=== PATIENT | male | born 1945 | race Caucasian/White ===

== ENCOUNTER → 2016-12-27 | Outpatient (CLI) | payer OTHER ==
[2016-12-27 09:09] LABS: BASOPHILS # (AUTO) 0.1 X10^3/uL (0.0-0.1); BASOPHILS % (AUTO) 1.3 % (0.2-1.0); EOSINOPHILS # (AUTO) 0.1 x10^3/uL (0.0-0.2); EOSINOPHILS % (AUTO) 1.4 % (0.9-2.9); HEMATOCRIT 41.3 % (42.0-54.0); HEMOGLOBIN 13.8 g/dL (13.5-18.0); LYMPHOCYTES # (AUTO) 2.5 X10^3/uL (1.3-2.9); LYMPHOCYTES % (AUTO) 26.5 % (21.0-51.0); MEAN CORPUSCULAR HEMOGLOBIN 27.8 pg (27.0-34.0); MEAN CORPUSCULAR HGB CONC 33.5 g/dL (33.0-35.0); MEAN CORPUSCULAR VOLUME 83.2 fL (80.0-100.0); MONOCYTES # (AUTO) 0.6 x10^3/uL (0.3-0.8); NEUTROPHILS # (AUTO) 6.2 x10^3/uL (2.2-4.8); NEUTROPHILS % (AUTO) 64.8 % (42.0-75.0); PLATELET COUNT 199 X10^3/uL (150.0-450.0); RED BLOOD COUNT 4.96 X10^6/uL (4.7-6.0); RED CELL DISTRIBUTION WIDTH 17.7 % (11.6-16.5); WHITE BLOOD COUNT 9.6 X10^3/uL (3.6-10.0)
== END ==
LOC: LAB 08:43
PROVIDERS: ATTEND Urology
DX: E29.1 Testicular hypofunction (principal); C61 Malignant neoplasm of prostate
CPT/HCPCS: 36415; 84153; 84403; 85025

== ENCOUNTER 2018-06-18 11:15 | Inpatient (IN) ==
[2018-06-18 11:34] VITALS: BMI 28.2
--- NOTE | 2018-06-18 12:28 | DR.DIZZY ---
HPI Time seen Time Seen by Provider: 06/18/18 12:22 PCP Primary Care Physician: GUERO MORRELL Complaint Chief Complaint:: PT C/O > WEAKNESS , AND HX OF AFIB, PT C/O HAVING A < APPETITE, BR Self Treatment fo Chief Complaint: PT HAS HAD A WEAKNESS FOR , A YEAR, ,BR .. PT IS A GOOD HISTORIAN , NO DISTRESS NOTED PTS COLOR IS PINK, PT MOVED ALL EXTS WELL, BR Nurses Notes Reviewed Nurses Notes Review: Yes Source History Provided: Patient Mode of Arrival Mode of Arrival: Ambulatory Timing Onset of Chief Complaint: 06/18/17 Came on: Suddenly Symptom Onset: Unknown Duration Duration: Constant Duration: Days Location of Weakness Weakness Location: Generalized Context Onset: At rest and With light exertion Does pt take pot. toxic medication?: No History of: None Stroke Symptoms: Dizziness Severity Severity: Normal activity level Modifying factors Worsens: Other (WITH INCREASE ACTIVITY) Associated signs and symptoms Associated Signs and Symptoms: Weak PMH PMH Past Medical History: Yes Past Medical History Comment: AFIB, Past Surgical History: Yes Surgical History: Appendectomy and Cholecystectomy Past Surgical History Comment: HERNIA REPAIR, KNEE REPLACEMENT Family History History of Family Medical Conditions: No Social History Does patient currently use any type of tobacco product: No Have you used tobacco products in the last 12 months: No Type of Tobacco Use: None Does any household member use tobacco: No Alcohol Use: None Do you use any recreational Drugs:: No Lives With: Family Lives Where: Home infectious screening In the last 2 months have you had wt loss of >10#?: NO Have you had fever, night sweats or hemotysis?: No Have you traveled outside the country in the last 6 months?: No Isolation: Standard ROS Review of Systems Constitutional: Weakness, Fatigue and Loss of Appetite; negative Chills and Fev er Eyes: No Symptoms Reported ENTM: No Symptoms Reported Respiratoy: Short of Breath Cardiovascular: Chest Pain Gastrointestinal/Abdominal: Nausea Genitourinary: No Symptoms Reported Neurological: Weakness Musculoskeletal: Muscle Pain Integumentary: No Symptoms Reported Hematologic/Lymphatic: No Symptoms Reported Endocrine: No Symptoms Reported Psychiatric: No Symptoms Reported All Other Systems: Reviewed and Negative PE Vital Signs Vitals: Temperature 97.4 F Pulse Rate [Right Brachial] 85 Pulse Rate 92 Respiratory Rate 18 Blood Pressure [Right Arm] 136/91 Blood Pressure 160/88 O2 Sat by Pulse Oximetry 97 General Limitations: No Limitations General Appearance: Alert and In No Apparent Distress Head Head Exam: Normal Inspection Eyes Eye exam: Normal Appearance Pupils: Regular, Round: Bilateral and Reactive: Bilateral Sclera/Conjunctival: Normal Inspection: Bilateral ENT ENT Exam: Normal External Ear Exam Neck Neck Exam: Trachea Midline Chest Chest Inspection: Symmetric Chest Wall Rise Respiratory Respiratory Exam: Normal Lung Sounds Bilat Respiratory Exam: Bilateral: Rhonchi and Lower: Rhonchi Cardiovascular Cardiovascular Exam: Regular Rate and Normal Rhythm Abdominal Exam Abdominal Exam: Normal Bowel Sounds and Soft Rectal Rectal Exam: Deferred Extremeties Extremities Exam: Normal Inspection Back Back Exam: Normal Inspection Neurologic Neurological Exam: Alert, Oriented X3, CN II-XII Intact and Normal Gait; negative Motor Sensory Deficit Patient Oriented To: Person, Place and Time Speech: Fluid Speech Cranial Nerve Exam: EOM Function (II, III, IV, ): Normal, Facial Sensation (V): Normal, Facial Palsy (VII): Normal, Gag reflex (XI): Normal and Tongue Deviation: Normal Cerebellar Function: Normal Gait Motor Strength - LUE: 5/5 Motor Strength - RUE: 5/5 Motor Strength - LLE: 5/5 Motor Strength - RLE: 5/5 Upper Motor Neuron Exam: Babinski Sign: Normal Psychiatric Psychiatric Exam: Normal Affect and Normal Mood Skin Skin Exam: Dry MDM Additional Information Obtained Additional Information Obtained From: Family Differential Diagnosis Differential Diagnosis: Anemia, Dehydration, Dysrhythmia, Hypoglycemia, Myocardial infarction and Pulmonary embolus Differential Diagnosis Comment: THORACIC ANEURYSM. COURSE Treatment Treatment: SEE ORDERS. Consultation Consultation Comments: PATIENT DISCUSS WITH DR. HARO. HE WILL ADMIT PATIENT. Education/Counseling Education/Counseling: Patient and Family Educated On: Diagnosis ROR Labs Reviewed Laboratory Results Reviewed?: Yes Result Diagrams: 06/19/18 04:33 06/19/18 04:33 Laboratory: WBC 7.5 X10^3/uL (3.6-10.0) 06/19/18 04:33 RBC 4.45 X10^6/uL (4.7-6.0) L 06/19/18 04:33 Hgb 13.3 g/dL (13.5-18.0) L 06/19/18 04:33 Hct 39.5 % (42.0-54.0) L 06/19/18 04:33 MCV 88.9 fL (80.0-100.0) 06/19/18 04:33 MCH 29.8 pg (27.0-34.0) 06/19/18 04:33 MCHC 33.5 g/dL (33.0-35.0) 06/19/18 04:33 RDW 15.1 % (11.6-16.5) 06/19/18 04:33 Plt Count 207 X10^3/uL (150.0-450.0) 06/19/18 04:33 MPV 7.8 fL (7.4-11.0) 06/19/18 04:33 Neut % (Auto) 54.4 % (42.0-75.0) 06/19/18 04:33 Lymph % (Auto) 36.1 % (21.0-51.0) 06/19/18 04:33 [place] % (Auto) 7.3 % (0.0-13.0) 06/19/18 04:33 Eos % (Auto) 1.5 % (0.9-2.9) 06/19/18 04:33 Baso % (Auto) 0.7 % (0.2-1.0) 06/19/18 04:33 Neut # (Auto) 4.1 x10^3/uL (2.2-4.8) 06/19/18 04:33 Lymph # (Auto) 2.7 X10^3/uL (1.3-2.9) 06/19/18 04:33 [place] # (Auto) 0.6 x10^3/uL (0.3-0.8) 06/19/18 04:33 Eos # (Auto) 0.1 x10^3/uL (0.0-0.2) 06/19/18 04:33 Baso # (Auto) 0.1 X10^3/uL (0.0-0.1) 06/19/18 04:33 Absolute Nucleated RBC 0.1 /100WBC 06/19/18 04:33 Sodium 145 mmol/L (136-145) 06/19/18 04:33 Corrected Sodium TNP 06/19/18 04:33 Potassium 3.8 mmol/L (3.5-5.1) 06/19/18 04:33 Chloride 108 mmol/L (98-107) H 06/19/18 04:33 Carbon Dioxide 29.3 mmol/L (21-32) 06/19/18 04:33 BUN 9 mg/dL (7-18) 06/19/18 04:33 Creatinine 1.62 mg/dL (0.70-1.30) H 06/19/18 04:33 Est GFR (MDRD) Af Amer 54 (>60) L 06/19/18 04:33 Est GFR (MDRD) Non-Af 45 (>60) L 06/19/18 04:33 Glucose 83 mg/dL (65-99) 06/19/18 04:33 Calcium 8.1 mg/dL (8.5-10.1) L 06/19/18 04:33 Corrected Calcium 9.1 mg/dL (8.5-10.1) 06/19/18 04:33 Magnesium 2.1 mg/dL (1.7-2.9) 06/19/18 04:33 Total Bilirubin 0.60 mg/dL (0.2-1.0) 06/19/18 04:33 AST 26 Units/L (15-37) 06/19/18 04:33 ALT 21 Units/L (12-78) 06/19/18 04:33 Alkaline Phosphatase 55 Units/L (46-116) 06/19/18 04:33 Creatine Kinase 83 Units/L (39-308) 06/19/18 04:33 CK-MB (CK-2) 3.7 ng/mL (0-4.0) 06/19/18 04:33 CK/CKMB % Calc 4.5 % (<4) 06/19/18 04:33 Troponin I 0.05 ng/mL (0-1.5) 06/19/18 04:33 Total Protein 6.0 g/dL (6.4-8.2) L 06/19/18 04:33 Albumin 2.8 g/dL (3.4-5.0) L 06/19/18 04:33 Globulin 3.2 g/dL (2.5-4.5) 06/19/18 04:33 Albumin/Globulin Ratio 0.9 Ratio (1.1-2.1) L 06/19/18 04:33 Triglycerides 113 mg/dL (0-150) 06/19/18 04:33 Cholesterol 197 mg/dL (0-200) 06/19/18 04:33 LDL Cholesterol, Calc 133 mg/dL (0-100) H 06/19/18 04:33 HDL Cholesterol 41 mg/dL (40-60) 06/19/18 04:33 Cholesterol/HDL Ratio 4.8 (0.0-5.0) 06/19/18 04:33 Specimen Type Clean catch urine 06/18/18 12:48 Urine Color Yellow (YELLOW) 06/18/18 12:48 Urine Appearance Clear (CLEAR) 06/18/18 12:48 Urine pH 6.0 (5.0 - 8.0) 06/18/18 12:48 Ur Specific [place] 1.010 (1.000-1.030) 06/18/18 12:48 Urine Protein 3+ (NEGATIVE) 06/18/18 12:48 Urine Glucose (UA) Negative (NEGATIVE) 06/18/18 12:48 Urine Ketones Negative (NEGATIVE) 06/18/18 12:48 Urine Occult Blood 2+ (NEGATIVE) 06/18/18 12:48 Urine Nitrite Negative (NEGATIVE) 06/18/18 12:48 Urine Bilirubin Negative (NEGATIVE) 06/18/18 12:48 Urine Urobilinogen Normal (NORMAL) 06/18/18 12:48 Ur Leukocyte Esterase Negative (NEGATIVE) 06/18/18 12:48 Urine RBC 0-2 /HPF (NONE SEEN) 06/18/18 12:48 Urine WBC 0-2 /HPF (NONE SEEN) 06/18/18 12:48 Ur Squamous Epith Cells Rare /HPF (NEGATIVE) 06/18/18 12:48 Amorphous Sediment Trace /HPF (NEGATIVE) 06/18/18 12:48 Urine Bacteria Negative /HPF (NEGATIVE) 06/18/18 12:48 Urine Mucus Few /HPF (NEGATIVE) 06/18/18 12:48 Ur Culture Indicated? No/not indicated 06/18/18 12:48 EKG Rate: 89 Rhythm: Afib Diagnosis Discharge Problem: Chest pain, Generalized weakness
[2018-06-18 12:44] LABS: BASOPHILS % (AUTO) 0.6 % (0.2-1.0); EOSINOPHILS # (AUTO) 0.1 x10^3/uL (0.0-0.2); EOSINOPHILS % (AUTO) 1.2 % (0.9-2.9); HEMATOCRIT 43.7 % (42.0-54.0); HEMOGLOBIN 14.6 g/dL (13.5-18.0); LYMPHOCYTES # (AUTO) 2.4 X10^3/uL (1.3-2.9); LYMPHOCYTES % (AUTO) 28.8 % (21.0-51.0); MEAN CORPUSCULAR HEMOGLOBIN 29.4 pg (27.0-34.0); MEAN CORPUSCULAR HGB CONC 33.5 g/dL (33.0-35.0); MEAN CORPUSCULAR VOLUME 87.7 fL (80.0-100.0); MEAN PLATELET VOLUME 7.5 fL (7.4-11.0); MONOCYTES # (AUTO) 0.6 x10^3/uL (0.3-0.8); MONOCYTES % (AUTO) 7.3 % (0.0-13.0); NEUTROPHILS # (AUTO) 5.2 x10^3/uL (2.2-4.8); NEUTROPHILS % (AUTO) 62.1 % (42.0-75.0); PLATELET COUNT 231 X10^3/uL (150.0-450.0); RED BLOOD COUNT 4.98 X10^6/uL (4.7-6.0); RED CELL DISTRIBUTION WIDTH 15.3 % (11.6-16.5); WHITE BLOOD COUNT 8.3 X10^3/uL (3.6-10.0)
[2018-06-18 13:04] LABS: ALANINE AMINOTRANSFERASE 20 Units/L (12-78); ALBUMIN 2.9 g/dL (3.4-5.0); ALKALINE PHOSPHATASE 58 Units/L (46-116); ASPARTATE AMINO TRANSFERASE 19 Units/L (15-37); BLOOD UREA NITROGEN 9 mg/dL (7-18); CALCIUM 8.6 mg/dL (8.5-10.1); CARBON DIOXIDE 31.4 mmol/L (21-32); CHLORIDE 108 mmol/L (98-107); CKMB % 5.2 % (<4); COR CA(FOR HYPOALB) 9.5 mg/dL (8.5-10.1); CREATINE KINASE 65 Units/L (39-308); CREATINE KINASE MB 3.4 ng/mL (0-4.0); CREATININE 1.54 mg/dL (0.70-1.30); SODIUM 147 mmol/L (136-145); TOTAL PROTEIN 6.6 g/dL (6.4-8.2); TROPONIN I 0.04 ng/mL (0-1.5); eGFR NON BLACK RACES 47 (>60)
[2018-06-18 13:06] LABS: BILIRUBIN,URINE NEGATIVE (NEGATIVE); BLOOD/HEMOGLOBIN,URINE 2+ (NEGATIVE); GLUCOSE, URINE NEGATIVE (NEGATIVE); KETONES,URINE NEGATIVE (NEGATIVE); LEUKOCYTE ESTERASE ,URINE NEGATIVE (NEGATIVE); NITRITES,URINE NEGATIVE (NEGATIVE); PROTEIN,URINE 3+ (NEGATIVE); UROBILINOGEN,URINE NORMAL (NORMAL)
[2018-06-18 13:12] LABS: APPEARANCE,URINE CLEAR (CLEAR); COLOR,URINE YELLOW (YELLOW); RBC,URINE 0-2 /HPF (NONE SEEN); SQUAMOUS EPITHELIAL CELL,UR RARE /HPF (NEGATIVE)
[2018-06-18 13:13] LABS: AMORPHOUS SEDIMENT,UR TRACE /HPF (NEGATIVE); BACTERIA,URINE NEGATIVE /HPF (NEGATIVE); MUCUS,URINE FEW /HPF (NEGATIVE)
[2018-06-18] MEDS ORDERED: K-LYTE EFFERVESCENT ONE (13:41)
[2018-06-18 14:55] LABS: CKMB % 4.4 % (<4); CREATINE KINASE MB 3.3 ng/mL (0-4.0); TROPONIN I 0.04 ng/mL (0-1.5)
[2018-06-18] MEDS ORDERED: NS 1000 ML 1,000 ML IV SCH (17:00)
[2018-06-18 19:23] LABS: MAGNESIUM 1.4 mg/dL (1.7-2.9)
[2018-06-18] MEDS ORDERED: KLOR-CON PO PRN (19:25)
[2018-06-18] MEDS ORDERED: K-RIDER 10 MEQ/NS 100 ML 10 MEQ/100 ML BAG IV PRN (19:25)
[2018-06-18] MEDS ORDERED: POTASSIUM CHL 60 MEQ/NS 0.45% 500 ML IV PRN (19:25)
[2018-06-18] MEDS ORDERED: MICRO K EXTEN CAP 10 MEQ PO PRN (19:25)
[2018-06-18] MEDS ORDERED: POTASSIUM CHLORIDE LIQ 20 MEQ UDC PO PRN (19:25)
[2018-06-18] MEDS ORDERED: POTASSIUM CHL 40 MEQ/NS 0.45% 500 ML IV PRN (19:25)
[2018-06-18] MEDS: MAGNESIUM SULFATE 1 GRAM/100 mL PREMIX 1 GM/100 ML BAG IV PRN ×4 (19:56→23:12)
[2018-06-18] MEDS: COREG TAB 6.25 MG PO SCH (20:44)
[2018-06-18] MEDS: PRADAXA PO SCH (20:44)
[2018-06-18] MEDS: XANAX PO PRN (20:44)
[2018-06-19 00:18] LABS: CKMB % 4.5 % (<4); CREATINE KINASE MB 3.3 ng/mL (0-4.0); TROPONIN I 0.05 ng/mL (0-1.5)
[2018-06-19] MEDS ORDERED: NS 1/2 + KCL 20 MEQ/L 1,000 ML IV ONE (00:31)
[2018-06-19] MEDS: NS 1/2 + KCL 20 MEQ/L 1,000 ML IV SCH ×3 (00:43→20:00)
[2018-06-19] MEDS ORDERED: NORCO 5/325 MG TAB ONE (03:29)
[2018-06-19] MEDS: NORCO 5/325 MG TAB PO PRN ×2 (03:34→12:00)
[2018-06-19 05:18] LABS: BASOPHILS # (AUTO) 0.1 X10^3/uL (0.0-0.1); BASOPHILS % (AUTO) 0.7 % (0.2-1.0); EOSINOPHILS # (AUTO) 0.1 x10^3/uL (0.0-0.2); EOSINOPHILS % (AUTO) 1.5 % (0.9-2.9); HEMATOCRIT 39.5 % (42.0-54.0); HEMOGLOBIN 13.3 g/dL (13.5-18.0); LYMPHOCYTES # (AUTO) 2.7 X10^3/uL (1.3-2.9); LYMPHOCYTES % (AUTO) 36.1 % (21.0-51.0); MEAN CORPUSCULAR HEMOGLOBIN 29.8 pg (27.0-34.0); MEAN CORPUSCULAR HGB CONC 33.5 g/dL (33.0-35.0); MEAN CORPUSCULAR VOLUME 88.9 fL (80.0-100.0); MEAN PLATELET VOLUME 7.8 fL (7.4-11.0); MONOCYTES # (AUTO) 0.6 x10^3/uL (0.3-0.8); MONOCYTES % (AUTO) 7.3 % (0.0-13.0); NEUTROPHILS # (AUTO) 4.1 x10^3/uL (2.2-4.8); NEUTROPHILS % (AUTO) 54.4 % (42.0-75.0); PLATELET COUNT 207 X10^3/uL (150.0-450.0); RED BLOOD COUNT 4.45 X10^6/uL (4.7-6.0); RED CELL DISTRIBUTION WIDTH 15.1 % (11.6-16.5); WHITE BLOOD COUNT 7.5 X10^3/uL (3.6-10.0)
[2018-06-19 05:41] LABS: ALANINE AMINOTRANSFERASE 21 Units/L (12-78); ALBUMIN 2.8 g/dL (3.4-5.0); ALKALINE PHOSPHATASE 55 Units/L (46-116); ASPARTATE AMINO TRANSFERASE 26 Units/L (15-37); BLOOD UREA NITROGEN 9 mg/dL (7-18); CALCIUM 8.1 mg/dL (8.5-10.1); CARBON DIOXIDE 29.3 mmol/L (21-32); CHLORIDE 108 mmol/L (98-107); CHOL/HDL RATIO 4.8 (0.0-5.0); CHOLESTEROL 197 mg/dL (0-200); COR CA(FOR HYPOALB) 9.1 mg/dL (8.5-10.1); CREATININE 1.62 mg/dL (0.70-1.30); HDL CHOLESTEROL 41 mg/dL (40-60); SODIUM 145 mmol/L (136-145); TRIGLYCERIDES 113 mg/dL (0-150); eGFR NON BLACK RACES 45 (>60)
[2018-06-19 05:45] LABS: CKMB % 4.5 % (<4); CREATINE KINASE MB 3.7 ng/mL (0-4.0); MAGNESIUM 2.1 mg/dL (1.7-2.9); TROPONIN I 0.05 ng/mL (0-1.5)
--- NOTE | 2018-06-19 09:06 | PCM.PROG ---
Progress Note - Progress Note for Day of Date of Exam: 06/19/18 - Subjective Subjective: 72 WM ADMITTED FROM ER AFTER PRESENTING WITH CO WEAKNESS. PT HAS HX OF A FIB, UNDER THE CARE OF DR MICHEL. PT STATES HE IS ON PRADAXA AND S/P CARDOVERSION. PT HAS NOT HAD A HEART CATH IN THE PAST. PT DENIES BEING ON WATER PILL, PT DOSE CO INCREASE URINATION. K CONTINUED 2.6 THIS AM, REPEAT CE AND CONTINUOUS SUPPLEMENTAL O2 AND CARDIAC MONITORING - Past Medical Family Social History Past Med/Fam/Surg Hx: No changes since H&P Allergies: Allergies apixaban [From Eliquis] Allergy (Verified 06/18/18 11:26) - Review of Systems ROS: No change since H&P - Vital Signs and I&O's Vital Signs: Temperature 97.4 F Pulse Rate [Right Brachial] 85 Pulse Rate 92 Respiratory Rate 18 Blood Pressure [Right Arm] 136/91 Blood Pressure 160/88 O2 Sat by Pulse Oximetry 97 Intake and Output: Intake & Output 06/16/18 06/17/18 06/18/18 06/19/18 11:59 11:59 11:59 11:59 Intake Total 1939 Output Total 0 / 0 Balance 1939 - Physical Exam Oriented: Normal Eyes: Normal Ear: Normal Nose: Normal Throat: Normal Respiratory: Diminished Cardiovascular: Irregular, Edema (TRACE) : Normal Auscultation: Bowel Sounds: Normal Palpation: Normal Tenderness: Normal Skin: Normal Musculoskeletal: Normal Psychiatric: Normal Mood Description: Calm Speech Pattern: Clear, Appropriate - Laboratory and Diagnostics Result Diagrams: 06/19/18 04:33 06/19/18 04:33 Labs: Laboratory WBC 7.5 X10^3/uL (3.6-10.0) 06/19/18 04:33 RBC 4.45 X10^6/uL (4.7-6.0) L 06/19/18 04:33 Hgb 13.3 g/dL (13.5-18.0) L 06/19/18 04:33 Hct 39.5 % (42.0-54.0) L 06/19/18 04:33 MCV 88.9 fL (80.0-100.0) 06/19/18 04:33 MCH 29.8 pg (27.0-34.0) 06/19/18 04:33 MCHC 33.5 g/dL (33.0-35.0) 06/19/18 04:33 RDW 15.1 % (11.6-16.5) 06/19/18 04:33 Plt Count 207 X10^3/uL (150.0-450.0) 06/19/18 04:33 MPV 7.8 fL (7.4-11.0) 06/19/18 04:33 Neut % (Auto) 54.4 % (42.0-75.0) 06/19/18 04:33 Lymph % (Auto) 36.1 % (21.0-51.0) 06/19/18 04:33 [place] % (Auto) 7.3 % (0.0-13.0) 06/19/18 04:33 Eos % (Auto) 1.5 % (0.9-2.9) 06/19/18 04:33 Baso % (Auto) 0.7 % (0.2-1.0) 06/19/18 04:33 Neut # (Auto) 4.1 x10^3/uL (2.2-4.8) 06/19/18 04:33 Lymph # (Auto) 2.7 X10^3/uL (1.3-2.9) 06/19/18 04:33 [place] # (Auto) 0.6 x10^3/uL (0.3-0.8) 06/19/18 04:33 Eos # (Auto) 0.1 x10^3/uL (0.0-0.2) 06/19/18 04:33 Baso # (Auto) 0.1 X10^3/uL (0.0-0.1) 06/19/18 04:33 Absolute Nucleated RBC 0.1 /100WBC 06/19/18 04:33 Sodium 145 mmol/L (136-145) 06/19/18 04:33 Corrected Sodium TNP 06/19/18 04:33 Potassium 3.8 mmol/L (3.5-5.1) 06/19/18 04:33 Chloride 108 mmol/L (98-107) H 06/19/18 04:33 Carbon Dioxide 29.3 mmol/L (21-32) 06/19/18 04:33 BUN 9 mg/dL (7-18) 06/19/18 04:33 Creatinine 1.62 mg/dL (0.70-1.30) H 06/19/18 04:33 Est GFR (MDRD) Af Amer 54 (>60) L 06/19/18 04:33 Est GFR (MDRD) Non-Af 45 (>60) L 06/19/18 04:33 Glucose 83 mg/dL (65-99) 06/19/18 04:33 Calcium 8.1 mg/dL (8.5-10.1) L 06/19/18 04:33 Corrected Calcium 9.1 mg/dL (8.5-10.1) 06/19/18 04:33 Magnesium 2.1 mg/dL (1.7-2.9) 06/19/18 04:33 Total Bilirubin 0.60 mg/dL (0.2-1.0) 06/19/18 04:33 AST 26 Units/L (15-37) 06/19/18 04:33 ALT 21 Units/L (12-78) 06/19/18 04:33 Alkaline Phosphatase 55 Units/L (46-116) 06/19/18 04:33 Creatine Kinase 83 Units/L (39-308) 06/19/18 04:33 CK-MB (CK-2) 3.7 ng/mL (0-4.0) 06/19/18 04:33 CK/CKMB % Calc 4.5 % (<4) 06/19/18 04:33 Troponin I 0.05 ng/mL (0-1.5) 06/19/18 04:33 Total Protein 6.0 g/dL (6.4-8.2) L 06/19/18 04:33 Albumin 2.8 g/dL (3.4-5.0) L 06/19/18 04:33 Globulin 3.2 g/dL (2.5-4.5) 06/19/18 04:33 Albumin/Globulin Ratio 0.9 Ratio (1.1-2.1) L 06/19/18 04:33 Triglycerides 113 mg/dL (0-150) 06/19/18 04:33 Cholesterol 197 mg/dL (0-200) 06/19/18 04:33 LDL Cholesterol, Calc 133 mg/dL (0-100) H 06/19/18 04:33 HDL Cholesterol 41 mg/dL (40-60) 06/19/18 04:33 Cholesterol/HDL Ratio 4.8 (0.0-5.0) 06/19/18 04:33 Specimen Type Clean catch urine 06/18/18 12:48 Urine Color Yellow (YELLOW) 06/18/18 12:48 Urine Appearance Clear (CLEAR) 06/18/18 12:48 Urine pH 6.0 (5.0 - 8.0) 06/18/18 12:48 Ur Specific [place] 1.010 (1.000-1.030) 06/18/18 12:48 Urine Protein 3+ (NEGATIVE) 06/18/18 12:48 Urine Glucose (UA) Negative (NEGATIVE) 06/18/18 12:48 Urine Ketones Negative (NEGATIVE) 06/18/18 12:48 Urine Occult Blood 2+ (NEGATIVE) 06/18/18 12:48 Urine Nitrite Negative (NEGATIVE) 06/18/18 12:48 Urine Bilirubin Negative (NEGATIVE) 06/18/18 12:48 Urine Urobilinogen Normal (NORMAL) 06/18/18 12:48 Ur Leukocyte Esterase Negative (NEGATIVE) 06/18/18 12:48 Urine RBC 0-2 /HPF (NONE SEEN) 06/18/18 12:48 Urine WBC 0-2 /HPF (NONE SEEN) 06/18/18 12:48 Ur Squamous Epith Cells Rare /HPF (NEGATIVE) 06/18/18 12:48 Amorphous Sediment Trace /HPF (NEGATIVE) 06/18/18 12:48 Urine Bacteria Negative /HPF (NEGATIVE) 06/18/18 12:48 Urine Mucus Few /HPF (NEGATIVE) 06/18/18 12:48 Ur Culture Indicated? No/not indicated 06/18/18 12:48 - Plan (1) Hypokalemia Status: Acute Plan: PLAN TO CONTINUE CARDIAC MONITORING. POTASSIUM REPLACEMENT. BP MONITORING, OCCULT STOOL. CAROTID US AND RENAL US (2) Generalized weakness Status: Acute (3) Hyperlipidemia Status: Acute (4) Atrial fibrillation Status: Acute (5) Chest pain Status: Acute
[2018-06-19] MEDS: PRADAXA PO SCH ×2 (09:10→20:35)
[2018-06-19] MEDS: COREG TAB 6.25 MG PO SCH ×2 (09:10→20:35)
[2018-06-19] MEDS: COZAAR PO SCH (09:10)
[2018-06-19 09:52] LABS: CKMB % 4.6 % (<4); CREATINE KINASE MB 3.5 ng/mL (0-4.0); TROPONIN I 0.04 ng/mL (0-1.5)
--- NOTE | 2018-06-19 11:02 | RAD ---
Exam: Portable chest History: 72-year-old male with shortness of breath and chest pain. Comparison: Previous chest radiograph from 12/23/2015. Findings: Mild cardiomegaly is seen. No significant vascular congestion however. Mild degree of atelectasis or interstitial scarring is seen at the lung bases. Otherwise lungs are clear with no infiltrate or significant effusion on either side. Bony thorax is unremarkable as well. Impression: Cardiomegaly. However no acute superimposed abnormality is seen on this exam Reported By:
[2018-06-19] MEDS ORDERED: K-LYTE EFFERVESCENT PO ONE (13:50)
--- NOTE | 2018-06-19 15:55 | VAS ---
HISTORY: Hypertension, dizziness, hyperlipidemia Study: Carotid Doppler ultrasound Comparison: No priors Technique: Grayscale, color and duplex Doppler evaluation cervical carotid arteries and vertebral arteries is provided. Findings: Carotid and vertebral arteries flow cephalad bilaterally. Atherosclerotic plaque materials are present involving the CCA and bulb regions bilaterally. Peak systolic arterial velocity in the right ICA is 66.8 centimeters/second. Peak systolic arterial velocity in the left ICA 69.8 centimeters/second. ICA/CCA ratios are as follows: On the right 1.18 and on the left 1.17. IMPRESSION: Less than 50% carotid stenosis bilaterally. Reported By:
--- NOTE | 2018-06-19 16:47 | US ---
HISTORY: Renal insufficiency Study: HISTORY: Study: Renal ultrasound Comparison: Technique: Multiple nichols scale and color flow Doppler images of the kidneys were obtained. The region of the urinary bladder was evaluated as well. Findings: The aorta tapers normally from 12.7 cm AP proximally to 1.55 cm AP mid to 1.68 cm AP distally. The bladder is unremarkable. Bladder volume prevoid is 42 mL. The right kidney is normal in size and contour and echogenicity and measures 10.62 cm in length by 5 cm AP by 5.51 cm transverse with a cortical thickness of 1.26 cm. A small contour bulge is seen in the upper pole the right kidney that is isoechoic to cortex and measures 0.86 by 0.60 x 1.08 cm this may be a cyst but is inadequately characterized the does appear to be mildly echogenic. A 2nd hypoechoic area is more consistent with a cyst in the upper pole the right kidney measuring 1.22 x 1.30 x 1.7 cm. A 3rd hyperechoic structure is seen at the upper pole the right kidney it measures 0.73 by 0.42 by 0.96 cm the echogenic portion may represent a renal calculus in the hypoechoic area behind it may represent the shadow. Unfortunately there are no old renal ultrasound or CT exams 2 confirm stability of the 2 non simple cystic structures at the upper pole the right kidney . The left kidney measures 12.4 cm in length by 6.4 cm AP x 4.5 cm transverse with a cortical thickness of 1.26 cm. There is no hydronephrosis solid or cystic mass. Echogenicity of the left kidney is normal contour is normal. Flow to both kidneys are normal. Impression : 1. normal left kidney normal bladder. 2. One simple cyst 1 isoechoic and 1 echogenic structure upper pole right kidney. Unfortunately there are no old studies for comparison to rule out neoplasm or stone in the upper pole of the right kidney. 3. There is no hydronephrosis. Reported By:
[2018-06-19] MEDS: XANAX PO PRN (20:35)
[2018-06-20] MEDS: NS 1/2 + KCL 20 MEQ/L 1,000 ML IV SCH ×2 (05:19→19:34)
[2018-06-20 05:27] LABS: BASOPHILS # (AUTO) 0.1 X10^3/uL (0.0-0.1); BASOPHILS % (AUTO) 0.8 % (0.2-1.0); EOSINOPHILS # (AUTO) 0.1 x10^3/uL (0.0-0.2); EOSINOPHILS % (AUTO) 1.6 % (0.9-2.9); HEMATOCRIT 38.7 % (42.0-54.0); HEMOGLOBIN 12.8 g/dL (13.5-18.0); LYMPHOCYTES # (AUTO) 2.3 X10^3/uL (1.3-2.9); LYMPHOCYTES % (AUTO) 35.1 % (21.0-51.0); MEAN CORPUSCULAR HEMOGLOBIN 29.6 pg (27.0-34.0); MEAN CORPUSCULAR HGB CONC 33.2 g/dL (33.0-35.0); MEAN CORPUSCULAR VOLUME 89.1 fL (80.0-100.0); MEAN PLATELET VOLUME 7.9 fL (7.4-11.0); MONOCYTES # (AUTO) 0.5 x10^3/uL (0.3-0.8); MONOCYTES % (AUTO) 7.4 % (0.0-13.0); NEUTROPHILS # (AUTO) 3.6 x10^3/uL (2.2-4.8); NEUTROPHILS % (AUTO) 55.1 % (42.0-75.0); PLATELET COUNT 192 X10^3/uL (150.0-450.0); RED BLOOD COUNT 4.34 X10^6/uL (4.7-6.0); RED CELL DISTRIBUTION WIDTH 15.2 % (11.6-16.5); WHITE BLOOD COUNT 6.6 X10^3/uL (3.6-10.0)
[2018-06-20 05:40] LABS: ALANINE AMINOTRANSFERASE 19 Units/L (12-78); ALBUMIN 2.6 g/dL (3.4-5.0); ALKALINE PHOSPHATASE 48 Units/L (46-116); ASPARTATE AMINO TRANSFERASE 20 Units/L (15-37); BLOOD UREA NITROGEN 13 mg/dL (7-18); CALCIUM 8.5 mg/dL (8.5-10.1); CARBON DIOXIDE 29.1 mmol/L (21-32); CHLORIDE 110 mmol/L (98-107); COR CA(FOR HYPOALB) 9.6 mg/dL (8.5-10.1); CREATININE 1.61 mg/dL (0.70-1.30); SODIUM 147 mmol/L (136-145); eGFR NON BLACK RACES 45 (>60)
[2018-06-20] MEDS: K-DUR TAB 20 MEQ PO PRN (06:20)
[2018-06-20] MEDS: MAGNESIUM SULFATE 1 GRAM/100 mL PREMIX 1 GM/100 ML BAG IV PRN ×2 (06:21→09:11)
[2018-06-20] MEDS: COZAAR PO SCH (09:12)
[2018-06-20] MEDS: COREG TAB 6.25 MG PO SCH ×2 (09:12→20:16)
[2018-06-20] MEDS: PRADAXA PO SCH ×2 (09:12→20:16)
--- NOTE | 2018-06-20 17:44 | PCM.PROG ---
Progress Note - Progress Note for Day of Date of Exam: 06/20/18 - Subjective Subjective: 72 WM ADMITTED FROM ER AFTER PRESENTING WITH CO WEAKNESS. PT HAS HX OF A FIB, UNDER THE CARE OF DR MICHEL. PT STATES HE IS ON PRADAXA AND S/P CARDOVERSION. PT HAS NOT HAD A HEART CATH IN THE PAST. PT STATES HE FEELS OK THIS AM, DENIES ANY CHEST PAIN FOR SOB. PT DENIES BEING ON WATER PILL, PT DOSE CO INCREASE URINATION. K CONTINUED 3.5 THIS AM, REPEAT CE AND CONTINUOUS SUPPLEMENTAL O2 AND CARDIAC MONITORING - Past Medical Family Social History Past Med/Fam/Surg Hx: No changes since H&P Allergies: Allergies apixaban [From Eliquis] Allergy (Verified 06/18/18 11:26) - Review of Systems ROS: No change since H&P - Vital Signs and I&O's Vital Signs: Temperature 97.4 F Pulse Rate [Right Brachial] 86 Pulse Rate 92 Respiratory Rate 20 Blood Pressure [Right Arm] 132/82 Blood Pressure 160/88 O2 Sat by Pulse Oximetry 98 Intake and Output: Intake & Output 06/18/18 06/19/18 06/20/18 06/21/18 11:59 11:59 11:59 11:59 Intake Total 1940 / 1940 2800 / 2800 500 / 500 Output Total 0 / 0 Balance 1940 / 1940 2800 / 2800 500 / 500 - Physical Exam Oriented: Normal Eyes: Normal Ear: Normal Nose: Normal Throat: Normal Respiratory: Diminished Cardiovascular: Irregular, Edema (TRACE) : Normal Auscultation: Bowel Sounds: Normal Tenderness: Normal Skin: Normal Musculoskeletal: Normal Psychiatric: Normal Mood Description: Calm Speech Pattern: Clear, Appropriate - Laboratory and Diagnostics Result Diagrams: 06/20/18 04:50 06/20/18 04:50 Labs: Laboratory WBC 6.6 X10^3/uL (3.6-10.0) 06/20/18 04:50 RBC 4.34 X10^6/uL (4.7-6.0) L 06/20/18 04:50 Hgb 12.8 g/dL (13.5-18.0) L 06/20/18 04:50 Hct 38.7 % (42.0-54.0) L 06/20/18 04:50 MCV 89.1 fL (80.0-100.0) 06/20/18 04:50 MCH 29.6 pg (27.0-34.0) 06/20/18 04:50 MCHC 33.2 g/dL (33.0-35.0) 06/20/18 04:50 RDW 15.2 % (11.6-16.5) 06/20/18 04:50 Plt Count 192 X10^3/uL (150.0-450.0) 06/20/18 04:50 MPV 7.9 fL (7.4-11.0) 06/20/18 04:50 Neut % (Auto) 55.1 % (42.0-75.0) 06/20/18 04:50 Lymph % (Auto) 35.1 % (21.0-51.0) 06/20/18 04:50 [place] % (Auto) 7.4 % (0.0-13.0) 06/20/18 04:50 Eos % (Auto) 1.6 % (0.9-2.9) 06/20/18 04:50 Baso % (Auto) 0.8 % (0.2-1.0) 06/20/18 04:50 Neut # (Auto) 3.6 x10^3/uL (2.2-4.8) 06/20/18 04:50 Lymph # (Auto) 2.3 X10^3/uL (1.3-2.9) 06/20/18 04:50 [place] # (Auto) 0.5 x10^3/uL (0.3-0.8) 06/20/18 04:50 Eos # (Auto) 0.1 x10^3/uL (0.0-0.2) 06/20/18 04:50 Baso # (Auto) 0.1 X10^3/uL (0.0-0.1) 06/20/18 04:50 Absolute Nucleated RBC 0.0 /100WBC 06/20/18 04:50 Sodium 147 mmol/L (136-145) H 06/20/18 04:50 Corrected Sodium TNP 06/20/18 04:50 Potassium 3.5 mmol/L (3.5-5.1) 06/20/18 04:50 Chloride 110 mmol/L (98-107) H 06/20/18 04:50 Carbon Dioxide 29.1 mmol/L (21-32) 06/20/18 04:50 BUN 13 mg/dL (7-18) 06/20/18 04:50 Creatinine 1.61 mg/dL (0.70-1.30) H 06/20/18 04:50 Est GFR (MDRD) Af Amer 55 (>60) L 06/20/18 04:50 Est GFR (MDRD) Non-Af 45 (>60) L 06/20/18 04:50 Glucose 89 mg/dL (65-99) 06/20/18 04:50 Calcium 8.5 mg/dL (8.5-10.1) 06/20/18 04:50 Corrected Calcium 9.6 mg/dL (8.5-10.1) 06/20/18 04:50 Magnesium 1.7 mg/dL (1.7-2.9) 06/20/18 04:50 Total Bilirubin 0.40 mg/dL (0.2-1.0) 06/20/18 04:50 AST 20 Units/L (15-37) 06/20/18 04:50 ALT 19 Units/L (12-78) 06/20/18 04:50 Alkaline Phosphatase 48 Units/L (46-116) 06/20/18 04:50 Creatine Kinase 76 Units/L (39-308) 06/19/18 09:09 CK-MB (CK-2) 3.5 ng/mL (0-4.0) 06/19/18 09:09 CK/CKMB % Calc 4.6 % (<4) 06/19/18 09:09 Troponin I 0.04 ng/mL (0-1.5) 06/19/18 09:09 Total Protein 6.0 g/dL (6.4-8.2) L 06/20/18 04:50 Albumin 2.6 g/dL (3.4-5.0) L 06/20/18 04:50 Globulin 3.4 g/dL (2.5-4.5) 06/20/18 04:50 Albumin/Globulin Ratio 0.8 Ratio (1.1-2.1) L 06/20/18 04:50 Triglycerides 113 mg/dL (0-150) 06/19/18 04:33 Cholesterol 197 mg/dL (0-200) 06/19/18 04:33 LDL Cholesterol, Calc 133 mg/dL (0-100) H 06/19/18 04:33 HDL Cholesterol 41 mg/dL (40-60) 06/19/18 04:33 Cholesterol/HDL Ratio 4.8 (0.0-5.0) 06/19/18 04:33 Specimen Type Clean catch urine 06/18/18 12:48 Urine Color Yellow (YELLOW) 06/18/18 12:48 Urine Appearance Clear (CLEAR) 06/18/18 12:48 Urine pH 6.0 (5.0 - 8.0) 06/18/18 12:48 Ur Specific [place] 1.010 (1.000-1.030) 06/18/18 12:48 Urine Protein 3+ (NEGATIVE) 06/18/18 12:48 Urine Glucose (UA) Negative (NEGATIVE) 06/18/18 12:48 Urine Ketones Negative (NEGATIVE) 06/18/18 12:48 Urine Occult Blood 2+ (NEGATIVE) 06/18/18 12:48 Urine Nitrite Negative (NEGATIVE) 06/18/18 12:48 Urine Bilirubin Negative (NEGATIVE) 06/18/18 12:48 Urine Urobilinogen Normal (NORMAL) 06/18/18 12:48 Ur Leukocyte Esterase Negative (NEGATIVE) 06/18/18 12:48 Urine RBC 0-2 /HPF (NONE SEEN) 06/18/18 12:48 Urine WBC 0-2 /HPF (NONE SEEN) 06/18/18 12:48 Ur Squamous Epith Cells Rare /HPF (NEGATIVE) 06/18/18 12:48 Amorphous Sediment Trace /HPF (NEGATIVE) 06/18/18 12:48 Urine Bacteria Negative /HPF (NEGATIVE) 06/18/18 12:48 Urine Mucus Few /HPF (NEGATIVE) 06/18/18 12:48 Ur Culture Indicated? No/not indicated 06/18/18 12:48 Stool Description 38g,brown,formed 06/20/18 10:29 Stl Occult Blood (IFOB) Positive (NEGATIVE) A 06/20/18 10:29 - Plan (1) Hypokalemia Status: Acute Plan: PLAN TO CONTINUE CARDIAC MONITORING. POTASSIUM REPLACEMENT. BP MONITORING, OCCULT STOOL. CAROTID US AND RENAL US PEFORMED ON 06/19 (2) Generalized weakness Status: Acute (3) Hyperlipidemia Status: Acute (4) Atrial fibrillation Status: Acute (5) Chest pain Status: Acute
[2018-06-20] MEDS: XANAX PO PRN (20:16)
[2018-06-21] MEDS: NS 1/2 + KCL 20 MEQ/L 1,000 ML IV SCH ×2 (03:16→05:14)
[2018-06-21 05:29] LABS: BASOPHILS # (AUTO) 0.1 X10^3/uL (0.0-0.1); BASOPHILS % (AUTO) 0.8 % (0.2-1.0); EOSINOPHILS # (AUTO) 0.1 x10^3/uL (0.0-0.2); EOSINOPHILS % (AUTO) 1.8 % (0.9-2.9); HEMATOCRIT 38.7 % (42.0-54.0); HEMOGLOBIN 12.7 g/dL (13.5-18.0); LYMPHOCYTES # (AUTO) 2.4 X10^3/uL (1.3-2.9); LYMPHOCYTES % (AUTO) 31.8 % (21.0-51.0); MEAN CORPUSCULAR HEMOGLOBIN 29.6 pg (27.0-34.0); MEAN CORPUSCULAR HGB CONC 32.8 g/dL (33.0-35.0); MEAN CORPUSCULAR VOLUME 90.2 fL (80.0-100.0); MEAN PLATELET VOLUME 7.9 fL (7.4-11.0); MONOCYTES # (AUTO) 0.5 x10^3/uL (0.3-0.8); MONOCYTES % (AUTO) 7.2 % (0.0-13.0); NEUTROPHILS # (AUTO) 4.4 x10^3/uL (2.2-4.8); NEUTROPHILS % (AUTO) 58.4 % (42.0-75.0); PLATELET COUNT 195 X10^3/uL (150.0-450.0); RED BLOOD COUNT 4.29 X10^6/uL (4.7-6.0); RED CELL DISTRIBUTION WIDTH 15.2 % (11.6-16.5); WHITE BLOOD COUNT 7.6 X10^3/uL (3.6-10.0)
[2018-06-21 05:48] LABS: ALANINE AMINOTRANSFERASE 19 Units/L (12-78); ALBUMIN 2.6 g/dL (3.4-5.0); ALKALINE PHOSPHATASE 59 Units/L (46-116); ASPARTATE AMINO TRANSFERASE 21 Units/L (15-37); BLOOD UREA NITROGEN 14 mg/dL (7-18); CALCIUM 7.7 mg/dL (8.5-10.1); CARBON DIOXIDE 27.2 mmol/L (21-32); CHLORIDE 112 mmol/L (98-107); COR CA(FOR HYPOALB) 8.8 mg/dL (8.5-10.1); CREATININE 1.54 mg/dL (0.70-1.30); MAGNESIUM 1.7 mg/dL (1.7-2.9); SODIUM 148 mmol/L (136-145); eGFR NON BLACK RACES 47 (>60)
[2018-06-21] MEDS: K-DUR TAB 20 MEQ PO PRN (06:25)
[2018-06-21] MEDS: MAGNESIUM SULFATE 1 GRAM/100 mL PREMIX 1 GM/100 ML BAG IV PRN ×2 (06:26→10:08)
[2018-06-21] MEDS ORDERED: XANAX PO ONE (09:02)
[2018-06-21] MEDS: PRADAXA PO SCH (09:06)
[2018-06-21] MEDS: COZAAR PO SCH (09:07)
[2018-06-21] MEDS: COREG TAB 6.25 MG PO SCH (09:07)
[2018-06-21] MEDS ORDERED: FLONASE NASAL SPRAY ENOSTRIL SCH (10:00)
[2018-06-21] MEDS ORDERED: MORPHINE SULFATE INJ 2 MG INJ IVP PRN (12:49)
--- NOTE | 2018-06-21 13:00 | DR.H&P ---
H&P - History & Physical for Day of: H&P Date: 06/18/18 - Chief Complaint Chief Complaint: WEAKNESS, SILVA, AFIB - History of Present Illness History of Present Illness: 72 WM ER ADMISSION AFTER PRESENTING WITH CO WEAKNESS AND SILVA. PT RECENTLY DX WITH AFIB APPROX 3 MOS AGO. HAS BEEN UNDER THE CARE OF [facility]. PT STATES HE HAS HAD CARDIOVERSION, BACK IN AFIB. PT IS ON PRADAXA FOR ANTICOAGULANT THERAPY. PT K+2.8 ON ADMISSION, DENIES TAKING DIURETIC. PT ADMITTED FOR TREATMENT OF ACUTE ILLNESS AND ELECTROLYTE REPLACEMENT - Past Medical History Past Medical History: Anxiety, Arthritis, Hypertension Additional Medical History: ATRIAL FIBRILLATION - Past Surgical History Surgical History: Appendectomy, Cholecystectomy - Family History Family Medical History: Cancer, Heart Failure, Hypertension - Social History Does patient currently use any type of tobacco product: No Have you used tobacco products in the last 12 months: No Type of Tobacco Use: None How many years tobacco product used: 30 Does any household member use tobacco: No Alcohol Use: None Drug Use: Prescription Drugs - Medications Home Medications: apixaban [From [employer]] Allergy (Verified 06/18/18 11:26) CONTINUE taking the following medications alprazolam 1 mg PO HS 06/18/18 [History] carvedilol [Coreg] 6.2 mg PO BID 06/18/18 [History] dabigatran etexilate [Pradaxa] 150 mg PO BID 06/18/18 [History] losartan 100 mg PO DAILY 06/18/18 [History] - Review of Systems Constitutional: Weakness Eyes: No Symptoms Reported ENT: No Symptoms Reported Respiratory: SOB with Excertion Cardiovascular: Palpitations Gastrointestinal: No Symptoms Reported Genitourinary: No Symptoms Reported Musculoskeletal: No Symptoms Reported Skin: No Symptoms Reported Neurological: Weakness - Physical Exam Vital Signs: Temperature 97.5 F Pulse Rate [Right Brachial] 87 Pulse Rate 92 Respiratory Rate 20 Blood Pressure [Left Arm] 131/92 Blood Pressure [Right Arm] 123/75 Blood Pressure 160/88 O2 Sat by Pulse Oximetry 97 Oriented: Normal Eyes: Normal Ear: Normal Nose: Normal Throat: Normal Respiratory: RLL Diminished, LLL Diminished Cardiovascular: Irregular : Normal, Hematuria Palpation: Normal Tenderness: Normal Skin: Normal Musculoskeletal: Normal Mood Description: Calm Speech Pattern: Clear, Appropriate - Assessment/Plan (1) Hypokalemia Status: Acute Plan: ADMIT, POTASSIUM REPLACEMENT, GENTLE IV HYDRATION. CXR ON ADMISSION, SERIAL CE AND EKG. BP AND LIPID CONTROL. SUPPLEMENTAL O2, REPEAT AM LABS. VERIFY HOME MEDICATION (2) Generalized weakness Status: Acute (3) Atrial fibrillation Status: Acute (4) Hyperlipidemia Status: Acute (5) Chest pain Status: Acute - Allergies Allergies/Adverse Reactions: Allergies Allergy/AdvReac Type Severity Reaction Status Date / Time apixaban [From Eliquis] Allergy Verified 06/18/18 11:26
[2018-06-21] MEDS ORDERED: MORPHINE SULFATE INJ 2 MG INJ ONE (13:01)
[2018-06-21 14:19] VITALS: BP 142/88
== END 2018-06-21 13:55 | disposition home or self-care (01) | DRG 641 ==
LOC: ER 11:23 → MED/SURG 11:23 → OBSVTOIN 15:24 → MED/SURG 15:50
PROVIDERS: ADMIT Internal Medicine; ATTEND Internal Medicine
DX: R94.31 Abnormal electrocardiogram [ECG] [EKG]; E78.2 Mixed hyperlipidemia; R53.1 Weakness; R07.89 Other chest pain; R26.89 Other abnormalities of gait and mobility; R94.30 Abnormal result of cardiovascular function study, unspecified; I48.91 Unspecified atrial fibrillation; E87.6 Hypokalemia
CPT/HCPCS: 36415; 71010; 71045; 76770; 80053; 80061; 81001; 82270; 82550; 82553; 83735; 84132; 84484; 85025; 93005; 93880; 94760; 96365; 96374; 97110; 97116; 97161; 99284; A4216; A4222; J7030; J2270; J3475; J8499

== ENCOUNTER 2019-07-06 09:48 | Inpatient (IN) ==
[2019-07-06 10:00] VITALS: BMI 24.9
[2019-07-06] MEDS ORDERED: NS 1000 ML 1,000 ML ONE (10:25)
--- NOTE | 2019-07-06 10:38 | DR.GENAD ---
HPI Time Seen Time Seen by Provider: 07/06/19 10:09 PCP Primary Care Physician: DANIELLA JAQUEZ Complaint/Symptoms Chief Complaint Doctors Comments: or Patient states he has been coughing all day with nasal congestion and generalized weakness. States his has the flu and his daughter has the flu. He went to his chemo doctor recently. States he has had lung and prostate cancer. States his is taking medicines for bronchitis and his son states he sounds just like she did. He has no oxygen at home but has c-pap. He is a patient at [facility] and has not seen them recently. He is complaining of SOB but denies nausea or vomiting. or p Chief Complaint:: DAUGHTER STATES THAT PATIENT HAS BEEN UP ALL NIGHT COUGHING, GAGGING AND CAN'T BREATHE. FAMILY STATES THAT PATIENT HAS NO STRENGTH AT ALL THIS MORNING. Self Treatment fo Chief Complaint: TAMIFLU ( FROM HIS MEDICATION) Nurses notes reviewed Nurses Notes Review: Yes Source History Provided: Patient and Family Member Mode of Arrival Mode of Arrival: Wheelchair Timing Onset of Chief Complaint: 07/05/19 Came on: Gradually Duration Duration: Intermittent Duration: Days Severity Severity: None Modifying Factors Worsens:: nothing Improves:: nothing Associated Signs and Symptoms Associated Signs and Symptoms: cold, cough, nasal congestion, PMH PMH Past Medical History: Yes Past Medical History: Anxiety, Arthritis, Hypertension and Renal Disease Past Medical History Comment: WATCHMEN, AFIB, LOW POTASSIUM, PROSTATE AND LUNG CANCER Past Surgical History: Yes Surgical History: Cholecystectomy and Other Past Surgical History Comment: LEFT KNEE SURGERY, HERNIA REPAIR Family History History of Family Medical Conditions: Yes Family Medical History: Heart Failure Family Medical History Comment: MOTHER HAD CHF Social History Does patient currently use any type of tobacco product: No Have you used tobacco products in the last 12 months: No Type of Tobacco Use: DIP Does any household member use tobacco: No Alcohol Use: None Do you use any recreational Drugs:: No Lives With: Spouse Lives Where: Home infectious screening In the last 2 months have you had wt loss of >10#?: NO Have you had fever, night sweats or hemotysis?: No Have you traveled outside the country in the last 6 months?: No Isolation: Standard ROS Review of Systems Constitutional: No Symptoms Reported, Fever and Weakness Eyes: No Symptoms Reported ENTM: No Symptoms Reported, Nose Discharge and Nose Congestion Cardiovascular: No Symptoms Reported Gastrointestinal/Abdominal: No Symptoms Reported Genitourinary: No Symptoms Reported Neurological: No Symptoms Reported, Weakness and Problems Walking Musculoskeletal: No Symptoms Reported Integumentary: No Symptoms Reported Hematologic/Lymphatic: No Symptoms Reported Endocrine: No Symptoms Reported Psychiatric: No Symptoms Reported, See HPI, Depression and Hallucinations PE Vital Signs Vitals: Temperature 98.6 F Pulse Rate 99 Blood Pressure [Left Arm] 147/81 Blood Pressure [Right Arm] 123/75 Blood Pressure 140/76 O2 Sat by Pulse Oximetry 90 General Limitations: No Limitations General Appearance: Alert and In Distress (moderate distress) Head Head Exam: Normal Inspection and Atraumatic Eyes Eye exam: Normal Appearance, PERRL and EOMI ENT ENT Exam: Normal Exam, Normal Oropharynx, Normal External Ear Exam, Mucous Membranes Moist and TM's Normal Bilaterally External Ear Exam: Normal External Inspection and Mastoid Tenderness; negative Periauricular Adenopathy TM/Canal Exam: Bilateral: Normal Nose Exam: Normal Nose Exam Mouth Exam: Normal Inspection; negative Drooling, Trismus, Lip Swelling, Tongue Elevation, Tongue Swelling, Laceration and Other Throat Exam: Normal Inspection Neck Neck Exam: Normal Inspection, Full ROM and Trachea Midline; negative Tenderness, Meningismus, Lymphadenopathy, Thyromegaly and Other Chest Chest Inspection: Normal Inspection and Symmetric Chest Wall Rise; negative Tenderness, Rash, Abscess and Other Respiratory Respiratory Exam: Normal Lung Sounds Bilat, Accessory Muscle Use and Chest Wall Tenderness Respiratory Exam: Bilateral: Decreased Breath Sounds, Left: Rales and Lower: Rales Cardiovascular Cardiovascular Exam: Regular Rate, Normal Rhythm, Tachycardia, Normal Heart Sounds and Systolic Murmur Abdominal Exam Abdominal Exam: Normal Inspection, Normal Bowel Sounds and Soft; negative Distention, Tenderness, Guarding, Rebound, Rigidity, Dimnished Bowel Sounds, Hyperactive Bowel Sounds, Hypoactive Bowel Sounds, Organomegaly, Trauma, Incision, Ascites, Mass, Bruit, Pulsatile Mass, Hernia and Other Abdominal Tenderness: negative RUQ, RLQ, LUQ, LLQ, Epigastrium, Suprapubic, Diffuse, Mild, Moderate, Severe and Other Extremities Extremities Exam: Normal Inspection, Full ROM and Normal Capillary Refill; negative Tenderness, Edema, Joint Swelling, Calf Tenderness and Other Back Back Exam: Normal Inspection and Full ROM Neurologic Neurological Exam: Alert, Oriented X3, CN II-XII Intact, Normal Gait (gait not tested) and Reflexes Normal Psychiatric Psychiatric Exam: Normal Affect and Normal Mood Skin Skin Exam: Warm, Dry, Intact and Normal Color COURSE Consultation Called: 12:56 Call Returned: 12:56 Consultation Comments: Dr. Roque to admit to ICU. IV fluids, nebulizer, steroids. Education/Counseling Education/Counseling: Patient, Family and Education Educated On: Treatment, Diagnosis and Prognosis ROR Labs Reviewed Laboratory Results Reviewed?: Yes (All labs and x-ray results reviewed and di scussed with patient.) Result Diagrams: 07/06/19 10:31 07/06/19 10:31 Laboratory: WBC 9.6 X10^3/uL (3.6-10.0) 07/06/19 10: RBC 4.18 X10^6/uL (4.7-6.0) L 07/06/19 10: Hgb 12.5 g/dL (13.5-18.0) L 07/06/19 10: Hct 37.5 % (42.0-54.0) L 07/06/19 10: MCV 89.8 fL (80.0-100.0) 07/06/19 10: MCH 29.9 pg (27.0-34.0) 07/06/19 10: MCHC 33.4 g/dL (33.0-35.0) 07/06/19 10: RDW 16.9 % (11.6-16.5) H 07/06/19 10:31 Plt Count 153 X10^3/uL (150.0-450.0) 07/06/19 10: MPV 7.1 fL (7.4-11.0) L 07/06/19 10: Neut % (Auto) 85.6 % (42.0-75.0) H 07/06/19 10: Lymph % (Auto) 9.3 % (21.0-51.0) L 07/06/19 10: [place] % (Auto) 4.7 % (0.0-13.0) 07/06/19 10: Eos % (Auto) 0.1 % (0.9-2.9) L 07/06/19 10: Baso % (Auto) 0.3 % (0.2-1.0) 07/06/19 10:31 Neut # (Auto) 8.2 x10^3/uL (2.2-4.8) H 07/06/19 10:31 Lymph # (Auto) 0.9 X10^3/uL (1.3-2.9) L 07/06/19 10:31 [place] # (Auto) 0.5 x10^3/uL (0.3-0.8) 07/06/19 10:31 Eos # (Auto) 0.0 x10^3/uL (0.0-0.2) 07/06/19 10:31 Baso # (Auto) 0.0 X10^3/uL (0.0-0.1) 07/06/19 10:31 Absolute Nucleated RBC 0.0 /100WBC 07/06/19 10:31 PT 13.8 SECONDS (11.8-14.3) 07/06/19 10:31 INR Target Range - 07/06/19 10:31 INR 1.10 (0.8-1.3) 07/06/19 10:31 APTT 30.9 SECONDS (22.9-36.5) 07/06/19 10:31 PTT Comment - 07/06/19 10:31 Sample Site Rbra 07/06/19 12:24 ABG pH 7.450 (7.35-7.45) 07/06/19 12:24 ABG pCO2 33.0 mmHg (35.0-45.0) L 07/06/19 12:24 ABG pO2 67.0 mmHg (80.0-100.0) L 07/06/19 12:24 ABG HCO3 22.9 mmol/L (22-26) 07/06/19 12:24 ABG O2 Saturation 94.0 % (90-100) 07/06/19 12:24 ABG Base Excess -0.5 mmol/L (-2.0-2.0) 07/06/19 12:24 Geoff Test N/a 07/06/19 12:24 A-a Gradient 91.0 mmHg 07/06/19 12:24 FiO2 28.0 07/06/19 12:24 Blood Gas Comments Pt nyla well eb 07/06/19 12:24 Sodium 139 mmol/L (136-145) 07/06/19 10:31 Corrected Sodium 139 mmol/L (136-145) 07/06/19 10:31 Potassium 5.2 mmol/L (3.5-5.1) H 07/06/19 10:31 Chloride 107 mmol/L (98-107) 07/06/19 10:31 Carbon Dioxide 23.4 mmol/L (21-32) 07/06/19 10:31 BUN 21 mg/dL (7-18) H 07/06/19 10:31 Creatinine 1.28 mg/dL (0.70-1.30) 07/06/19 10:31 Est GFR (MDRD) Af Amer > 60 (>60) 07/06/19 10:31 Est GFR (MDRD) Non-Af 59 (>60) 07/06/19 10:31 Glucose 112 mg/dL (65-99) H 07/06/19 10:31 Calcium 8.1 mg/dL (8.5-10.1) L 07/06/19 10:31 Corrected Calcium 8.9 mg/dL (8.5-10.1) 07/06/19 10:31 Magnesium 1.2 mg/dL (1.7-2.9) L 07/06/19 10:31 Total Bilirubin 0.60 mg/dL (0.2-1.0) 07/06/19 10:31 AST 39 Units/L (15-37) H 07/06/19 10:31 ALT 40 Units/L (12-78) 07/06/19 10:31 Alkaline Phosphatase 82 Units/L (46-116) 07/06/19 10:31 Creatine Kinase 53 Units/L (39-308) 07/06/19 10:31 CK-MB (CK-2) < 1.0 ng/mL (0-4.0) 07/06/19 10:31 CK/CKMB % Calc 1.9 % (<4) 07/06/19 10:31 Troponin I < 0.02 ng/mL (0-1.5) 07/06/19 10:31 Total Protein 7.2 g/dL (6.4-8.2) 07/06/19 10:31 Albumin 3.0 g/dL (3.4-5.0) L 07/06/19 10:31 Globulin 4.2 g/dL (2.5-4.5) 07/06/19 10:31 Albumin/Globulin Ratio 0.7 Ratio (1.1-2.1) L 07/06/19 10:31 Specimen Type Clean catch urine 07/06/19 10:17 Urine Color Yellow (YELLOW) 07/06/19 10:17 Urine Appearance Clear (CLEAR) 07/06/19 10:17 Urine pH 5.0 (5.0 - 8.0) 07/06/19 10:17 Ur Specific [place] 1.025 (1.000-1.030) 07/06/19 10:17 Urine Protein 4+ (NEGATIVE) 07/06/19 10:17 Urine Glucose (UA) Negative (NEGATIVE) 07/06/19 10:17 Urine Ketones Negative (NEGATIVE) 07/06/19 10:17 Urine Occult Blood 2+ (NEGATIVE) 07/06/19 10:17 Urine Nitrite Negative (NEGATIVE) 07/06/19 10:17 Urine Bilirubin Negative (NEGATIVE) 07/06/19 10:17 Urine Urobilinogen Normal (NORMAL) 07/06/19 10:17 Ur Leukocyte Esterase Negative (NEGATIVE) 07/06/19 10:17 Urine RBC 3-5 /HPF (0-3) A 07/06/19 10:17 Urine WBC 3-5 /HPF (0-5) 07/06/19 10:17 Ur Squamous Epith Cells Moderate /HPF (NEGATIVE) 07/06/19 10:17 Amorphous Sediment 1+ /HPF (NEGATIVE) 07/06/19 10:17 Urine Bacteria Trace /HPF (NEGATIVE) 07/06/19 10:17 Hyaline Casts Rare /LPF (NEGATIVE) 07/06/19 10:17 Urine Mucus Moderate /HPF (NEGATIVE) 07/06/19 10:17 Ur Culture Indicated? No/not indicated 07/06/19 10:17 Influenza Type A (PCR) Positive (NEGATIVE) A 07/06/19 10:15 Influenza Type B (PCR) Negative (NEGATIVE) 07/06/19 10:15 S. pyogenes (TEM-PCR) Not detected (NOT DETECT) 07/06/19 10:15 XRAY XRAY Interpreted by: Radiologist X-ray Results: CXR: [place] enlargement with chronic interstitia coarsening. Metallic densities projected over the right hilum may be postsurgical or on the skin surface/artifact. EKG Rate: 98 [place]: Normal Rhythm: Afib ST: Nonsp Opioid Opioid Risk Tool Total: 0 Total Score Risk Category: Low Risk Copyright: Dean SANTIZO predicting aberrant behaviors Instructions Forms: Excuse From Work Patient Portal
--- NOTE | 2019-07-06 10:46 | RAD ---
HISTORYSOB, lung cancerSTUDYAP [id number] cardiomegaly. There is chronic coarsening of the interstitial pattern in the perihilar and lower lobe areas. No consolidation, mass or pleural fluid. Small metallic opacities are projected over the right hilum.IMPRESSIONCardiac enlargement with chronic interstitial coarsening. Metallic densities projected over the right hilum may be postsurgical or on the skin surface/artifact.Electronically signed by: SID ALVA (Jul 06, 2019 10:44:56)
[2019-07-06 10:51] LABS: BASOPHILS % (AUTO) 0.3 % (0.2-1.0); EOSINOPHILS % (AUTO) 0.1 % (0.9-2.9); HEMATOCRIT 37.5 % (42.0-54.0); HEMOGLOBIN 12.5 g/dL (13.5-18.0); LYMPHOCYTES # (AUTO) 0.9 X10^3/uL (1.3-2.9); LYMPHOCYTES % (AUTO) 9.3 % (21.0-51.0); MEAN CORPUSCULAR HEMOGLOBIN 29.9 pg (27.0-34.0); MEAN CORPUSCULAR HGB CONC 33.4 g/dL (33.0-35.0); MEAN CORPUSCULAR VOLUME 89.8 fL (80.0-100.0); MEAN PLATELET VOLUME 7.1 fL (7.4-11.0); MONOCYTES # (AUTO) 0.5 x10^3/uL (0.3-0.8); MONOCYTES % (AUTO) 4.7 % (0.0-13.0); NEUTROPHILS # (AUTO) 8.2 x10^3/uL (2.2-4.8); NEUTROPHILS % (AUTO) 85.6 % (42.0-75.0); PLATELET COUNT 153 X10^3/uL (150.0-450.0); RED BLOOD COUNT 4.18 X10^6/uL (4.7-6.0); RED CELL DISTRIBUTION WIDTH 16.9 % (11.6-16.5); WHITE BLOOD COUNT 9.6 X10^3/uL (3.6-10.0)
[2019-07-06 10:56] LABS: BILIRUBIN,URINE NEGATIVE (NEGATIVE); BLOOD/HEMOGLOBIN,URINE 2+ (NEGATIVE); GLUCOSE, URINE NEGATIVE (NEGATIVE); KETONES,URINE NEGATIVE (NEGATIVE); LEUKOCYTE ESTERASE ,URINE NEGATIVE (NEGATIVE); NITRITES,URINE NEGATIVE (NEGATIVE); PROTEIN,URINE 4+ (NEGATIVE); UROBILINOGEN,URINE NORMAL (NORMAL)
[2019-07-06 10:58] LABS: APPEARANCE,URINE CLEAR (CLEAR); COLOR,URINE YELLOW (YELLOW)
[2019-07-06] MEDS ORDERED: NS 1000 ML 1,000 ML IV SCH (11:00)
[2019-07-06 11:03] LABS: BLOOD UREA NITROGEN 21 mg/dL (7-18); CALCIUM 8.1 mg/dL (8.5-10.1); CARBON DIOXIDE 23.4 mmol/L (21-32); CHLORIDE 107 mmol/L (98-107); COR NA(FOR HYPERGLY) 139 mmol/L (136-145); CREATININE 1.28 mg/dL (0.70-1.30); SODIUM 139 mmol/L (136-145); TROPONIN I < 0.02 ng/mL (0-1.5); eGFR NON BLACK RACES 59 (>60)
[2019-07-06 11:07] LABS: ALANINE AMINOTRANSFERASE 40 Units/L (12-78); ALKALINE PHOSPHATASE 82 Units/L (46-116); CKMB % 1.9 % (<4); COR CA(FOR HYPOALB) 8.9 mg/dL (8.5-10.1); CREATINE KINASE 53 Units/L (39-308); CREATINE KINASE MB < 1.0 ng/mL (0-4.0); MAGNESIUM 1.2 mg/dL (1.7-2.9); TOTAL PROTEIN 7.2 g/dL (6.4-8.2)
[2019-07-06 11:13] LABS: AMORPHOUS SEDIMENT,UR 1+ /HPF (NEGATIVE); BACTERIA,URINE TRACE /HPF (NEGATIVE); MUCUS,URINE MODERATE /HPF (NEGATIVE); SQUAMOUS EPITHELIAL CELL,UR MODERATE /HPF (NEGATIVE)
[2019-07-06 11:13] LABS: ASPARTATE AMINO TRANSFERASE 39 Units/L (15-37)
[2019-07-06 11:17] LABS: HYALINE CASTS, URINE RARE /LPF (NEGATIVE)
[2019-07-06 12:27] LABS: ABG BASE EXCESS -0.5 mmol/L (-2.0-2.0); ABG HCO3 22.9 mmol/L (22-26)
[2019-07-06] MEDS ORDERED: SOLU-Medrol 125 MG VIAL IVP ONE (13:06)
[2019-07-06] MEDS ORDERED: TAMIFLU PO ONE (13:51)
[2019-07-06] MEDS: TAMIFLU PO SCH ×2 (14:01→22:43)
[2019-07-06] MEDS: SOLU-Medrol 40 MG VIAL IVP SCH ×2 (14:04→22:44)
[2019-07-06] MEDS: XOPENEX 1.25 MG/3 ML NEBULE NEB SCH ×2 (14:11→21:15)
[2019-07-06] MEDS ORDERED: POTASSIUM CHLORIDE LIQ 20 MEQ UDC PO PRN (17:19)
[2019-07-06] MEDS ORDERED: K-RIDER 10 MEQ/NS 100 ML 10 MEQ/100 ML BAG IV PRN (17:19)
[2019-07-06] MEDS ORDERED: POTASSIUM CHL 40 MEQ/NS 0.45% 500 ML IV PRN (17:19)
[2019-07-06] MEDS ORDERED: KLOR-CON PO PRN (17:19)
[2019-07-06] MEDS ORDERED: MICRO K EXTEN CAP 10 MEQ PO PRN (17:19)
[2019-07-06] MEDS ORDERED: K-DUR TAB 20 MEQ PO PRN (17:19)
[2019-07-06] MEDS ORDERED: POTASSIUM CHL 60 MEQ/NS 0.45% 500 ML IV PRN (17:19)
[2019-07-06] MEDS: FORTAZ or TAZICEF VIAL INJ 1 G in NS 100 ML IV + SPIKE MINIBAG* 100 ML IV SCH (17:39)
[2019-07-06 18:07] LABS: ALANINE AMINOTRANSFERASE 53 Units/L (12-78); ALBUMIN 2.9 g/dL (3.4-5.0); ALKALINE PHOSPHATASE 81 Units/L (46-116); ASPARTATE AMINO TRANSFERASE 48 Units/L (15-37); BLOOD UREA NITROGEN 20 mg/dL (7-18); CALCIUM 7.7 mg/dL (8.5-10.1); CARBON DIOXIDE 22.4 mmol/L (21-32); CHLORIDE 107 mmol/L (98-107); COR CA(FOR HYPOALB) 8.6 mg/dL (8.5-10.1); COR NA(FOR HYPERGLY) 140 mmol/L (136-145); CREATININE 1.28 mg/dL (0.70-1.30); MAGNESIUM 1.2 mg/dL (1.7-2.9); SODIUM 139 mmol/L (136-145); TOTAL PROTEIN 6.9 g/dL (6.4-8.2); eGFR NON BLACK RACES 59 (>60)
[2019-07-06] MEDS: NS 1000 ML 1,000 ML IV SCH ×3 (20:15→22:43)
[2019-07-06] MEDS ORDERED: STERILE WATER IRRIGATION IR ONE (21:26)
[2019-07-06] MEDS: MAGNESIUM SULFATE 1 GRAM/100 mL PREMIX 1 GM/100 ML BAG IV PRN ×2 (21:44→22:56)
[2019-07-07] MEDS: MAGNESIUM SULFATE 1 GRAM/100 mL PREMIX 1 GM/100 ML BAG IV PRN ×2 (00:28→02:11)
[2019-07-07 05:44] LABS: BASOPHILS % (AUTO) 0.1 % (0.2-1.0); HEMATOCRIT 37.6 % (42.0-54.0); HEMOGLOBIN 12.6 g/dL (13.5-18.0); LYMPHOCYTES # (AUTO) 0.7 X10^3/uL (1.3-2.9); LYMPHOCYTES % (AUTO) 10.6 % (21.0-51.0); MEAN CORPUSCULAR HEMOGLOBIN 30.5 pg (27.0-34.0); MEAN CORPUSCULAR HGB CONC 33.5 g/dL (33.0-35.0); MEAN CORPUSCULAR VOLUME 90.9 fL (80.0-100.0); MEAN PLATELET VOLUME 7.8 fL (7.4-11.0); MONOCYTES # (AUTO) 0.2 x10^3/uL (0.3-0.8); MONOCYTES % (AUTO) 2.9 % (0.0-13.0); NEUTROPHILS # (AUTO) 6.1 x10^3/uL (2.2-4.8); NEUTROPHILS % (AUTO) 86.4 % (42.0-75.0); PLATELET COUNT 168 X10^3/uL (150.0-450.0); RED BLOOD COUNT 4.13 X10^6/uL (4.7-6.0); RED CELL DISTRIBUTION WIDTH 16.8 % (11.6-16.5)
[2019-07-07 05:57] LABS: ALANINE AMINOTRANSFERASE 55 Units/L (12-78); ALKALINE PHOSPHATASE 86 Units/L (46-116); ASPARTATE AMINO TRANSFERASE 40 Units/L (15-37); BLOOD UREA NITROGEN 23 mg/dL (7-18); CALCIUM 8.2 mg/dL (8.5-10.1); CARBON DIOXIDE 21.5 mmol/L (21-32); CHLORIDE 107 mmol/L (98-107); COR NA(FOR HYPERGLY) 143 mmol/L (136-145); CREATININE 1.28 mg/dL (0.70-1.30); MAGNESIUM 2.2 mg/dL (1.7-2.9); SODIUM 139 mmol/L (136-145); TOTAL PROTEIN 7.4 g/dL (6.4-8.2); eGFR NON BLACK RACES 59 (>60)
[2019-07-07] MEDS: FORTAZ or TAZICEF VIAL INJ 1 G in NS 100 ML IV + SPIKE MINIBAG* 100 ML IV SCH ×3 (05:57→22:00)
[2019-07-07] MEDS: SOLU-Medrol 40 MG VIAL IVP SCH ×3 (05:57→21:14)
[2019-07-07] MEDS: XOPENEX 1.25 MG/3 ML NEBULE NEB SCH ×3 (06:09→20:20)
--- NOTE | 2019-07-07 06:15 | RAD ---
History: [Chest pain and dyspnea].Exam: [Single portable view of the chest].Comparison: [July 07, 2019].Findings: The trachea is [midline]. The cardiomediastinal silhouette is [within normal limits]. There is [no evidence for CHF or pulmonary edema]. [There is no pneumothorax or mediastinal shift. The lungs are clear without consolidation, effusion, or pneumothorax]. The chest is hyperinflated with an increased AP dimension of the chest, diaphragmatic flattening, and central interstitial changes which would be compatible with changes of obstructive airways disease. [Overall, the chest radiographic examination is unchanged compared to the prior study]. [No acute bony abnormalities are seen]. Small metallic densities are again seen overlying the right hilum which may be postoperative in nature. Please correlate medically.Impression:1. [No acute cardiopulmonary changes seen].2. [Findings of obstructive airways disease].Electronically signed by: KAYLA BLEVINS III (Jul 07, 2019 06:14:20)
[2019-07-07] MEDS: NS 1000 ML 1,000 ML IV SCH ×4 (07:16→22:01)
[2019-07-07] MEDS: TAMIFLU PO SCH ×2 (08:58→21:09)
[2019-07-07] MEDS ORDERED: PHARMACY CONSULT - TPN XX SCH (09:00)
[2019-07-07] MEDS: TORADOL 30 MG VIAL IVP PRN (10:28)
[2019-07-07] MEDS: ZOLOFT PO SCH (10:54)
[2019-07-07] MEDS ORDERED: DEXTROSE 10% 1,000 ML IV PRN (11:20)
[2019-07-07] MEDS: CLINIMIX 4.25 %/10 % 1,000 ML with MVI INJ (ADULT) 10 ML IV SCH ×2 (11:42)
[2019-07-07] MEDS ORDERED: SALINE 3% 15 ML NEB TX NEB ONE (12:04)
[2019-07-07] MEDS: HumuLIN R SUBCUT PRN (17:04)
[2019-07-07] MEDS ORDERED: STERILE WATER IRRIGATION IR ONE (20:25)
[2019-07-07] MEDS ORDERED: CELEBREX PO PRN (20:38)
[2019-07-07] MEDS ORDERED: ALPRAZOLAM 2 MG PO PRN (20:38)
[2019-07-07] MEDS ORDERED: NORCO 7.5/325 MG TAB PO PRN (20:38)
[2019-07-07] MEDS ORDERED: XANAX PO PRN (21:04)
--- NOTE | 2019-07-07 21:25 | DR.H&P ---
H&P - History & Physical for Day of: H&P Date: 07/06/19 - Chief Complaint Chief Complaint: COUGH, CONGESTION, SOB, WEAKNESS - History of Present Illness History of Present Illness: IS A 73 YEAR OLD WHITE MALE WHO PRESENTED TO THE ER WITH COMPLAINTS OF COUGH, CONGESTION, SHORTNESS OF BREATH, AND WEAKNESS. HE HAS RECENTLY BEEN EXPOSED TO TWO DIFFERENT FAMILY MEMBERS WHO WERE DIAGNOSED WITH THE FLU. HE HAS A CURRENT HISTORY OF LUNG AND PROSTATE CANCER FOR WHICH HE IS RECEIVING CHEMO. HE REPORTS USE OF A C-PAP AT HOME AND IS CURRENTLY TAKING AN ANTIBIOTIC FOR TREATMENT OF BRONCHITIS. ON ARRIVAL TO THE ER, VITALS WERE 98.0-85-18-90%RA-156/62. OXYGEN SATURATIONS WERE NOTED TO FALL INTO THE LOW 80S ON ROOM AIR BEFORE OXYGEN WAS APPLIED. LABS WERE OBTAINED. ABNORMAL LAB VALUES INCLUDE THE FOLLOWING: RBC 4.18, HGB 12.5, HCT 37.5, POTASSIUM 5.2, BUN 21, GLUCOSE 112, CALCIUM 8.1, MAGNESIUM 1.2, AST 39, ALBUMIN 3.0. INFLUENZA A POSITIVE. ABG REVEALED: PH 7.450, PC02 33.0, P02 67.0, HC03 22.9, 02 SATURATION 94.0. BLOOD AND SPUTUM CULTURES WERE OBTAINED. A CHEST XRAY WAS OBTAINED AND REVEALED: Cardiac enlargement with chronic interstitial coarsening. Metallic densities projected over the right hilum may be postsurgical or on the skin surface/artifact. EKG REVEALED: ATRIAL FIBRILLATION WITH HR 98. HE WAS GIVEN SOLU-MEDROL 125MG IV X 1 IN THE ER. HE WAS ADMITTED FOR FURTHER EVALUATION AND TREATMENT OF HYPOXEMIA, ACUTE BRONCHITIS, INFLUENZA A, HYPERKALEMIA, AND CHRONIC A-FIB. HE WAS STARTED ON NORMAL SALINE AT 75 ML/HR, IV FORTAZ, TAMIFLU 75MG PO BID, SOLU-MEDROL 40MG IV Q8H, RESPIRATORY TX, THE POTASSIUM AND MAGNESIUM PROTOCOLS, TORADOL 30MG IV Q8H PRN, SUPPLEMENTAL OXYGEN, AND HOME MEDS WERE RESUMED. OTHERWISE, WE PLAN TO FOLLOW UP WITH AM LABS AND CONTINUE TO MONITOR. - Past Medical History Past Medical History: Hypertension, Renal Disease, Anxiety, Arthritis Additional Medical History: ATRIAL FIBRILLATION - Past Surgical History Surgical History: Appendectomy, Cholecystectomy, Joint Replacement, Ortho Surgery, Other - Family History Family Medical History: Cancer, Heart Failure, Hypertension - Social History Does patient currently use any type of tobacco product: No (quit 2 years ago) Have you used tobacco products in the last 12 months: No Type of Tobacco Use: DIP Does any household member use tobacco: No Alcohol Use: None Drug Use: None Prescription drug monitoring program results: PDMP reviewed and no concerns identified - Medications Home Medications: apixaban [From Eliquis] Allergy (Verified 07/05/18 13:37) CONTINUE taking the following medications alprazolam 2 mg PO DAILY PRN 07/06/19 [History] amlodipine-olmesartan 1 tab PO DAILY 07/06/19 [History] carvedilol 12.5 mg PO DAILY 07/06/19 [History] celecoxib [Celebrex] 200 mg PO DAILY PRN 07/06/19 [History] furosemide [Lasix] 40 mg PO DAILY 07/06/19 [History] hydrocodone-acetaminophen [[place]] 1 tab PO Q8H PRN 07/06/19 [History] magnesium oxide 400 mg PO TID PRN 07/06/19 [History] sertraline [Zoloft] 25 mg PO DAILY 07/06/19 [History] tamsulosin 0.4 mg PO DAILY 07/06/19 [History] - Review of Systems Constitutional: See HPI, Weakness Eyes: No Symptoms Reported ENT: No Symptoms Reported Respiratory: See HPI, Cough, Shortness of Breath, SOB with Excertion, Wheezing Cardiovascular: No Symptoms Reported Gastrointestinal: No Symptoms Reported Genitourinary: No Symptoms Reported Musculoskeletal: No Symptoms Reported Skin: No Symptoms Reported Neurological: Weakness - Physical Exam Vital Signs: Temperature 98.2 F Pulse Rate 78 Respiratory Rate 17 Blood Pressure [Left Arm] 147/81 Blood Pressure [Right Arm] 123/75 Blood Pressure 152/82 O2 Sat by Pulse Oximetry 94 Oriented: Normal Eyes: Normal Ear: Normal Nose: Normal Throat: Normal Respiratory: Diminished Throughout, Wheezes Throughout Cardiovascular: Normal. negative: S3, S4, Murmur : Normal Auscultation: Bowel Sounds: Normal Palpation: Normal Tenderness: Normal Skin: Normal Musculoskeletal: Normal Psychiatric: Normal Mood Description: Calm Affect: Normal Speech Pattern: Clear - Assessment/Plan (1) Acute bronchitis Qualifiers: Bronchitis organism: unspecified organism Qualified Code(s): J20.9 - Acute bronchitis, unspecified Status: Acute Plan: IV FORTAZ, RESPIRATORY TX, SUPPLEMENTAL OXYGEN, CONTINUE TO MONITOR (2) Influenza A with respiratory manifestations Status: Acute Plan: TAMIFLU 75MG PO BID, CONTINUE TO MONITOR (3) Atrial fibrillation Qualifiers: Atrial fibrillation type: longstanding persistent Qualified Code(s): I48.11 - Longstanding persistent atrial fibrillation Status: Acute (4) Hypokalemia Status: Acute Plan: POTASSIUM PROTOCOL, CONTINUE TO MONITOR (5) Hypoxemia Status: Acute - Allergies Allergies/Adverse Reactions: Allergies Allergy/AdvReac Type Severity Reaction Status Date / Time apixaban [From Eliquis] Allergy Verified 07/05/18 13:37
[2019-07-07] MEDS: XANAX PO PRN (22:08)
[2019-07-08] MEDS: XOPENEX 1.25 MG/3 ML NEBULE NEB SCH ×3 (05:10→20:45)
[2019-07-08] MEDS: FORTAZ or TAZICEF VIAL INJ 1 G in NS 100 ML IV + SPIKE MINIBAG* 100 ML IV SCH ×3 (06:00→21:18)
[2019-07-08] MEDS: SOLU-Medrol 40 MG VIAL IVP SCH ×3 (06:01→21:19)
[2019-07-08] MEDS: NS 1000 ML 1,000 ML IV SCH ×3 (06:01→22:52)
[2019-07-08 06:15] LABS: ALANINE AMINOTRANSFERASE 39 Units/L (12-78); ALBUMIN 2.4 g/dL (3.4-5.0); ALKALINE PHOSPHATASE 76 Units/L (46-116); ASPARTATE AMINO TRANSFERASE 20 Units/L (15-37); BLOOD UREA NITROGEN 24 mg/dL (7-18); CALCIUM 7.8 mg/dL (8.5-10.1); CARBON DIOXIDE 20.2 mmol/L (21-32); CHLORIDE 110 mmol/L (98-107); COR CA(FOR HYPOALB) 9.1 mg/dL (8.5-10.1); COR NA(FOR HYPERGLY) 144 mmol/L (136-145); CREATININE 1.09 mg/dL (0.70-1.30); MAGNESIUM 1.4 mg/dL (1.7-2.9); PHOSPHORUS 2.6 mg/dL (2.6-4.7); SODIUM 141 mmol/L (136-145); TOTAL PROTEIN 6.2 g/dL (6.4-8.2); TRIGLYCERIDES 84 mg/dL (0-150); eGFR NON BLACK RACES > 60 (>60)
[2019-07-08] MEDS: MAGNESIUM SULFATE 1 GRAM/100 mL PREMIX 1 GM/100 ML BAG IV PRN ×4 (06:15→10:32)
[2019-07-08 06:19] LABS: PREALBUMIN 17.7 mg/dL (18-35.7)
[2019-07-08 06:25] LABS: BASOPHILS % (AUTO) 0.1 % (0.2-1.0); HEMATOCRIT 34.5 % (42.0-54.0); HEMOGLOBIN 11.4 g/dL (13.5-18.0); LYMPHOCYTES # (AUTO) 0.6 X10^3/uL (1.3-2.9); LYMPHOCYTES % (AUTO) 6.3 % (21.0-51.0); MEAN CORPUSCULAR HEMOGLOBIN 29.9 pg (27.0-34.0); MEAN CORPUSCULAR VOLUME 90.5 fL (80.0-100.0); MEAN PLATELET VOLUME 7.4 fL (7.4-11.0); MONOCYTES # (AUTO) 0.3 x10^3/uL (0.3-0.8); NEUTROPHILS # (AUTO) 8.4 x10^3/uL (2.2-4.8); NEUTROPHILS % (AUTO) 90.6 % (42.0-75.0); PLATELET COUNT 169 X10^3/uL (150.0-450.0); RED BLOOD COUNT 3.81 X10^6/uL (4.7-6.0); RED CELL DISTRIBUTION WIDTH 17.2 % (11.6-16.5); WHITE BLOOD COUNT 9.2 X10^3/uL (3.6-10.0)
--- NOTE | 2019-07-08 07:20 | RAD ---
HISTORYShortness of breathSTUDYCHEST, [address] [facility]IEWCOMCore[facility] 2019FINDINGSThe heart is within normal limits in size. The mariela are normal. The lungs are well inflated and free of acute alveolar infiltrates. Bilateral lower lobe interstitial lung changes are present and stable. No pleural effusions are identified. The bony thorax is unremarkable.IMPRESSIONStable bilateral lower lobe interstitial lung changesElectronically signed by: ZEESHAN REY (Jul 08, 2019 07:19:16)
[2019-07-08 07:54] LABS: BAND NEUTROPHILS % 4 % (0-10); PLATELET MORPHOLOGY COMMENT NORMAL (NORMAL)
[2019-07-08] MEDS: LOVENOX INJ 40 MG SYR SC SCH (08:36)
[2019-07-08] MEDS: ZOLOFT PO SCH (08:38)
[2019-07-08] MEDS: FLOMAX PO SCH (08:38)
[2019-07-08] MEDS: BENICAR TAB 40 MG PO SCH (08:39)
[2019-07-08] MEDS: TAMIFLU PO SCH ×2 (08:39→20:04)
[2019-07-08] MEDS: LASIX PO SCH (08:39)
[2019-07-08] MEDS: NORVASC TAB 5 MG PO SCH (08:40)
[2019-07-08] MEDS: COREG TAB 12.5 MG PO SCH (08:40)
[2019-07-08] MEDS: HumuLIN R SUBCUT PRN ×3 (08:48→21:35)
[2019-07-08] MEDS ORDERED: AMLODIPINE OLMESARTAN PO SCH (09:00)
[2019-07-08] MEDS: TEMOVATE CREAM EXT SCH ×2 (11:32→20:12)
[2019-07-08] MEDS: CLINIMIX 4.25 %/10 % 1,000 ML with MVI INJ (ADULT) 10 ML IV SCH ×2 (15:00)
[2019-07-08] MEDS: TORADOL 30 MG VIAL IVP PRN (18:31)
[2019-07-09] MEDS: NS 1000 ML 1,000 ML IV SCH ×4 (03:07→21:01)
[2019-07-09 05:19] LABS: BASOPHILS % (AUTO) 0.1 % (0.2-1.0); HEMATOCRIT 33.8 % (42.0-54.0); HEMOGLOBIN 11.3 g/dL (13.5-18.0); LYMPHOCYTES # (AUTO) 0.6 X10^3/uL (1.3-2.9); LYMPHOCYTES % (AUTO) 6.7 % (21.0-51.0); MEAN CORPUSCULAR HEMOGLOBIN 30.3 pg (27.0-34.0); MEAN CORPUSCULAR HGB CONC 33.3 g/dL (33.0-35.0); MEAN CORPUSCULAR VOLUME 90.9 fL (80.0-100.0); MEAN PLATELET VOLUME 7.5 fL (7.4-11.0); MONOCYTES # (AUTO) 0.2 x10^3/uL (0.3-0.8); MONOCYTES % (AUTO) 2.4 % (0.0-13.0); NEUTROPHILS % (AUTO) 90.8 % (42.0-75.0); PLATELET COUNT 168 X10^3/uL (150.0-450.0); RED BLOOD COUNT 3.72 X10^6/uL (4.7-6.0); WHITE BLOOD COUNT 8.8 X10^3/uL (3.6-10.0)
[2019-07-09] MEDS: XOPENEX 1.25 MG/3 ML NEBULE NEB SCH ×2 (05:25→13:50)
[2019-07-09 05:36] LABS: ALANINE AMINOTRANSFERASE 34 Units/L (12-78); ALBUMIN 2.2 g/dL (3.4-5.0); ALKALINE PHOSPHATASE 73 Units/L (46-116); ASPARTATE AMINO TRANSFERASE 17 Units/L (15-37); BLOOD UREA NITROGEN 26 mg/dL (7-18); CALCIUM 7.5 mg/dL (8.5-10.1); CARBON DIOXIDE 21.6 mmol/L (21-32); CHLORIDE 109 mmol/L (98-107); COR CA(FOR HYPOALB) 8.9 mg/dL (8.5-10.1); COR NA(FOR HYPERGLY) 143 mmol/L (136-145); CREATININE 1.05 mg/dL (0.70-1.30); MAGNESIUM 1.6 mg/dL (1.7-2.9); SODIUM 141 mmol/L (136-145); TOTAL PROTEIN 5.8 g/dL (6.4-8.2); eGFR NON BLACK RACES > 60 (>60)
[2019-07-09] MEDS: FORTAZ or TAZICEF VIAL INJ 1 G in NS 100 ML IV + SPIKE MINIBAG* 100 ML IV SCH ×3 (05:38→21:00)
[2019-07-09] MEDS: SOLU-Medrol 40 MG VIAL IVP SCH ×2 (05:39→13:10)
[2019-07-09 05:41] LABS: BAND NEUTROPHILS % 3 % (0-10); PLATELET MORPHOLOGY COMMENT NORMAL (NORMAL)
--- NOTE | 2019-07-09 06:18 | RAD ---
HISTORYShortness of breathSTUDYCHEST, 1 VIEWCOMFresenius Medical Care [facility] Jacksonuary 2019FINDINGSThe heart is within normal limits in size. The mariela are normal. The lungs are well inflated and free of acute alveolar infiltrates. Mild interstitial lung changes are present in the lower lobes bilaterally, stable no pleural effusions are identified. The bony thorax is unremarkable.IMPRESSIONNo significant change from the prior examinationElectronically signed by: ZEESHAN REY (Jul 09, 2019 06:16:44)
[2019-07-09] MEDS: MAGNESIUM SULFATE 1 GRAM/100 mL PREMIX 1 GM/100 ML BAG IV PRN ×2 (06:30→08:03)
[2019-07-09] MEDS: LOVENOX INJ 40 MG SYR SC SCH (08:28)
[2019-07-09] MEDS: BENICAR TAB 40 MG PO SCH (08:29)
[2019-07-09] MEDS: TAMIFLU PO SCH ×2 (08:29→20:21)
[2019-07-09] MEDS: FLOMAX PO SCH (08:29)
[2019-07-09] MEDS: COREG TAB 12.5 MG PO SCH (08:29)
[2019-07-09] MEDS: TEMOVATE CREAM EXT SCH ×2 (08:30→20:21)
[2019-07-09] MEDS: LASIX PO SCH (08:30)
[2019-07-09] MEDS: NORVASC TAB 5 MG PO SCH (08:30)
[2019-07-09] MEDS: ZOLOFT PO SCH (08:30)
[2019-07-09] MEDS: HumuLIN R SUBCUT PRN (13:21)
[2019-07-09] MEDS: CLINIMIX 4.25 %/10 % 1,000 ML with MVI INJ (ADULT) 10 ML IV SCH ×2 (18:03)
[2019-07-09] MEDS: XANAX PO PRN (20:20)
[2019-07-09] MEDS: TORADOL 30 MG VIAL IVP PRN (21:02)
--- NOTE | 2019-07-09 22:42 | PCM.PROG ---
Progress Note - Progress Note for Day of Date of Exam: 07/08/19 - Subjective Subjective: IS BEING TREATED FOR ACUTE BRONCHITIS, INFLUENZA A, ATRIAL FIBRILLATION, HYPOKALEMIA, AND HYPOXEMIA. TODAY, HE IS ALERT AND ORIENTED, SITTING IN CHAIR ON MORNING ROUNDS. HE CONTINUES WITH COUGH, SHORTNESS OF BREATH, AND WEAKNESS. HE ALSO REPORTS REDNESS AND RASH TO SCROTUM. ON EXAM INATION, HEART IS REGULAR IN RATE AND RHYTHM. BILATERAL LUNGS ARE NOTED WITH SCATTERED WHEEZING THROUGHOUT. ABDOMEN IS ROUND, SOFT, AND NON-TENDER WITH NORMAL BOWEL SOUNDS NOTED IN ALL QUADRANTS. HIS VITALS THIS MORNING ARE: 98.0-76-20-97%-126/73. LABS WERE OBTAINED. ABNORMAL LAB VALUES INCLUDE THE FOLLOWING: RBC 3.81, HGB 11.4, HCT 34.5, CHLORIDE 110, CARBON DIOXIDE 20.2, BUN 24, GLUCOSE 233, CALCIUM 7.8, MAGNESIUM 1.4, TOTAL PROTEIN 6.2, ALBUMIN 2.4. BLOOD AND SPUTUM CULTURES PENDING. A CHEST XRAY WAS OBTAINED AND REVEALED: Stable bilateral lower lobe interstitial lung changes. HE IS CURRENTLY RECEIVING: NORMAL SALINE AT 75 ML/HR, IV FORTAZ, TAMIFLU 75MG PO BID, SOLU- MEDROL 40MG IV Q8H, RESPIRATORY TX, THE POTASSIUM AND MAGNESIUM PROTOCOLS, TORADOL 30MG IV Q8H PRN, SUPPLEMENTAL OXYGEN, AND HOME MEDS WERE RESUMED. WE WILL CONTINUE WITH CURRENT PLAN OF CARE TODAY AND ADD TEMOVATE CREAM. OTHERWISE, WE WILL FOLLOW UP WITH AM LABS AND CONTINUE TO MONITOR. - Past Medical Family Social History Past Med/Fam/Surg Hx: No changes since H&P Allergies: Allergies apixaban [From Eliquis] Allergy (Verified 07/05/18 13:37) - Review of Systems ROS: No change since H&P - Vital Signs and I&O's Vital Signs: Temperature 99.6 F Pulse Rate 98 Respiratory Rate 21 Blood Pressure [Left Arm] 147/81 Blood Pressure [Right Arm] 123/75 Blood Pressure 164/68 O2 Sat by Pulse Oximetry 100 Intake and Output: Intake & Output 07/07/19 07/08/19 07/09/19 07/10/19 11:59 11:59 11:59 11:59 Intake Total 2235 / 2235 3744 / 3744 6347 / 6347 3123 / 3123 Output Total 1750 / 1750 1675 / 1675 4250 / 4250 1375 / 1375 Balance 485 / 485 2068 / 2062096 / 2096 1748 / 1748 - Physical Exam Oriented: Normal Eyes: Normal Ear: Normal Nose: Normal Throat: Normal Respiratory: Generalized, Wheezes Cardiovascular: Normal. negative: S3, S4, Murmur : Normal Auscultation: Bowel Sounds: Normal Palpation: Normal Tenderness: Normal Skin: Normal Musculoskeletal: Normal Psychiatric: Normal Mood Description: Calm Affect: Normal Speech Pattern: Clear, Appropriate - Laboratory and Diagnostics Result Diagrams: 07/09/19 05:03 07/09/19 05:03 Labs: 07/06/19 20:09 Sputum - Expectorated Sputum Sputum Culture - Final Enterobacter Agglomerans 07/06/19 20:09 Sputum - Expectorated Sputum - Final 07/06/19 17:36 Blood Blood Culture - Preliminary 07/06/19 17:36 Blood Blood Culture - Preliminary Laboratory WBC 8.8 X10^3/uL (3.6-10.0) 07/09/19 05:03 RBC 3.72 X10^6/uL (4.7-6.0) L 07/09/19 05:03 Hgb 11.3 g/dL (13.5-18.0) L 07/09/19 05:03 Hct 33.8 % (42.0-54.0) L 07/09/19 05:03 MCV 90.9 fL (80.0-100.0) 07/09/19 05:03 MCH 30.3 pg (27.0-34.0) 07/09/19 05:03 MCHC 33.3 g/dL (33.0-35.0) 07/09/19 05:03 RDW 17.0 % (11.6-16.5) H 07/09/19 05:03 Plt Count 168 X10^3/uL (150.0-450.0) 07/09/19 05:03 Plt Count Comment Adequate (ADEQUATE) 07/09/19 05:03 MPV 7.5 fL (7.4-11.0) 07/09/19 05:03 Neut % (Auto) 90.8 % (42.0-75.0) H 07/09/19 05:03 Lymph % (Auto) 6.7 % (21.0-51.0) L 07/09/19 05:03 [place] % (Auto) 2.4 % (0.0-13.0) 07/09/19 05:03 Eos % (Auto) 0.0 % (0.9-2.9) L 07/09/19 05:03 Baso % (Auto) 0.1 % (0.2-1.0) L 07/09/19 05:03 Neut # (Auto) 8.0 x10^3/uL (2.2-4.8) H 07/09/19 05:03 Lymph # (Auto) 0.6 X10^3/uL (1.3-2.9) L 07/09/19 05:03 [place] # (Auto) 0.2 x10^3/uL (0.3-0.8) L 07/09/19 05:03 Eos # (Auto) 0.0 x10^3/uL (0.0-0.2) 07/09/19 05:03 Baso # (Auto) 0.0 X10^3/uL (0.0-0.1) 07/09/19 05:03 Absolute Nucleated RBC 0.2 /100WBC 07/09/19 05:03 Total Counted 100 07/09/19 05:03 Neutrophils % (Manual) 88 % (39-76) H 07/09/19 05:03 Band Neutrophils % 3 % (0-10) 07/09/19 05:03 Lymphocytes % (Manual) 6 % (13-43) L 07/09/19 05:03 Monocytes % (Manual) 3 % (4-9) L 07/09/19 05:03 Plt Morphology Comment Normal (NORMAL) 07/09/19 05:03 RBC Morphology Normal (NORMAL) 07/09/19 05:03 PT 13.8 SECONDS (11.8-14.3) 07/06/19 10:31 INR Target Range - 07/06/19 10:31 INR 1.10 (0.8-1.3) 07/06/19 10:31 APTT 30.9 SECONDS (22.9-36.5) 07/06/19 10:31 PTT Comment - 07/06/19 10:31 Sample Site [facility] 07/06/19 12:24 ABG pH 7.450 (7.35-7.45) 07/06/19 12:24 ABG pCO2 33.0 mmHg (35.0-45.0) L 07/06/19 12:24 ABG pO2 67.0 mmHg (80.0-100.0) L 07/06/19 12:24 ABG HCO3 22.9 mmol/L (22-26) 07/06/19 12:24 ABG O2 Saturation 94.0 % (90-100) 07/06/19 12:24 ABG Base Excess -0.5 mmol/L (-2.0-2.0) 07/06/19 12:24 Geoff Test N/a 07/06/19 12:24 A-a Gradient 91.0 mmHg 07/06/19 12:24 FiO2 28.0 07/06/19 12:24 Blood Gas Comments Pt nyla well eb 07/06/19 12:24 Sodium 141 mmol/L (136-145) 07/09/19 05:03 Corrected Sodium 143 mmol/L (136-145) 07/09/19 05:03 Potassium 3.6 mmol/L (3.5-5.1) 07/09/19 05:03 Chloride 109 mmol/L (98-107) H 07/09/19 05:03 Carbon Dioxide 21.6 mmol/L (21-32) 07/09/19 05:03 BUN 26 mg/dL (7-18) H 07/09/19 05:03 Creatinine 1.05 mg/dL (0.70-1.30) 07/09/19 05:03 Est GFR (MDRD) Af Amer > 60 (>60) 07/09/19 05:03 Est GFR (MDRD) Non-Af > 60 (>60) 07/09/19 05:03 Glucose 171 mg/dL (65-99) H 07/09/19 05:03 POC Glucose (mg/dL) 149 mg/dL (65-99) H 07/09/19 20:08 Calcium 7.5 mg/dL (8.5-10.1) L 07/09/19 05:03 Corrected Calcium 8.9 mg/dL (8.5-10.1) 07/09/19 05:03 Phosphorus 2.6 mg/dL (2.6-4.7) 07/08/19 04:50 Magnesium 1.6 mg/dL (1.7-2.9) L 07/09/19 05:03 Total Bilirubin 0.30 mg/dL (0.2-1.0) 07/09/19 05:03 AST 17 Units/L (15-37) 07/09/19 05:03 ALT 34 Units/L (12-78) 07/09/19 05:03 Alkaline Phosphatase 73 Units/L (46-116) 07/09/19 05:03 Creatine Kinase 53 Units/L (39-308) 07/06/19 10:31 CK-MB (CK-2) < 1.0 ng/mL (0-4.0) 07/06/19 10:31 CK/CKMB % Calc 1.9 % (<4) 07/06/19 10:31 Troponin I < 0.02 ng/mL (0-1.5) 07/06/19 10:31 Total Protein 5.8 g/dL (6.4-8.2) L 07/09/19 05:03 Albumin 2.2 g/dL (3.4-5.0) L 07/09/19 05:03 Globulin 3.6 g/dL (2.5-4.5) 07/09/19 05:03 Albumin/Globulin Ratio 0.6 Ratio (1.1-2.1) L 07/09/19 05:03 Prealbumin 17.7 mg/dL (18-35.7) L 07/08/19 04:50 Triglycerides 84 mg/dL (0-150) 07/08/19 04:50 Specimen Type Clean catch urine 07/06/19 10:17 Urine Color Yellow (YELLOW) 07/06/19 10:17 Urine Appearance Clear (CLEAR) 07/06/19 10:17 Urine pH 5.0 (5.0 - 8.0) 07/06/19 10:17 Ur Specific [place] 1.025 (1.000-1.030) 07/06/19 10:17 Urine Protein 4+ (NEGATIVE) 07/06/19 10:17 Urine Glucose (UA) Negative (NEGATIVE) 07/06/19 10:17 Urine Ketones Negative (NEGATIVE) 07/06/19 10:17 Urine Occult Blood 2+ (NEGATIVE) 07/06/19 10:17 Urine Nitrite Negative (NEGATIVE) 07/06/19 10:17 Urine Bilirubin Negative (NEGATIVE) 07/06/19 10:17 Urine Urobilinogen Normal (NORMAL) 07/06/19 10:17 Ur Leukocyte Esterase Negative (NEGATIVE) 07/06/19 10:17 Urine RBC 3-5 /HPF (0-3) A 07/06/19 10:17 Urine WBC 3-5 /HPF (0-5) 07/06/19 10:17 Ur Squamous Epith Cells Moderate /HPF (NEGATIVE) 07/06/19 10:17 Amorphous Sediment 1+ /HPF (NEGATIVE) 07/06/19 10:17 Urine Bacteria Trace /HPF (NEGATIVE) 07/06/19 10:17 Hyaline Casts Rare /LPF (NEGATIVE) 07/06/19 10:17 Urine Mucus Moderate /HPF (NEGATIVE) 07/06/19 10:17 Ur Culture Indicated? No/not indicated 07/06/19 10:17 Influenza Type A (PCR) Positive (NEGATIVE) A 07/06/19 10:15 Influenza Type B (PCR) Negative (NEGATIVE) 07/06/19 10:15 S. pyogenes (TEM-PCR) Not detected (NOT DETECT) 07/06/19 10:15 - Plan (1) Acute bronchitis Status: Acute Qualifiers: Bronchitis organism: unspecified organism Qualified Code(s): J20.9 - Acute bronchitis, unspecified Plan: IV FORTAZ, RESPIRATORY TX, SUPPLEMENTAL OXYGEN, CONTINUE TO MONITOR (2) Influenza A with respiratory manifestations Status: Acute Plan: TAMIFLU 75MG PO BID, CONTINUE TO MONITOR (3) Atrial fibrillation Status: Acute Qualifiers: Atrial fibrillation type: longstanding persistent Qualified Code(s): I48.11 - Longstanding persistent atrial fibrillation (4) Hypokalemia Status: Acute Plan: POTASSIUM PROTOCOL, CONTINUE TO MONITOR (5) Hypoxemia Status: Acute
[2019-07-10] MEDS: XOPENEX 1.25 MG/3 ML NEBULE NEB SCH ×4 (00:43→14:08)
[2019-07-10] MEDS: TORADOL 30 MG VIAL IVP PRN ×2 (04:34→21:46)
[2019-07-10] MEDS: NS 1000 ML 1,000 ML IV SCH ×3 (05:00→21:35)
[2019-07-10] MEDS: FORTAZ or TAZICEF VIAL INJ 1 G in NS 100 ML IV + SPIKE MINIBAG* 100 ML IV SCH ×3 (05:00→21:31)
[2019-07-10 05:15] LABS: BASOPHILS % (AUTO) 0.1 % (0.2-1.0); LYMPHOCYTES # (AUTO) 0.9 X10^3/uL (1.3-2.9); MEAN CORPUSCULAR HEMOGLOBIN 30.1 pg (27.0-34.0); MEAN CORPUSCULAR HGB CONC 33.3 g/dL (33.0-35.0); MEAN CORPUSCULAR VOLUME 90.3 fL (80.0-100.0); MEAN PLATELET VOLUME 7.8 fL (7.4-11.0); MONOCYTES # (AUTO) 0.4 x10^3/uL (0.3-0.8); MONOCYTES % (AUTO) 4.4 % (0.0-13.0); NEUTROPHILS # (AUTO) 8.4 x10^3/uL (2.2-4.8); NEUTROPHILS % (AUTO) 86.5 % (42.0-75.0); PLATELET COUNT 181 X10^3/uL (150.0-450.0); RED BLOOD COUNT 3.99 X10^6/uL (4.7-6.0); RED CELL DISTRIBUTION WIDTH 16.9 % (11.6-16.5); WHITE BLOOD COUNT 9.7 X10^3/uL (3.6-10.0)
[2019-07-10 05:21] LABS: ALANINE AMINOTRANSFERASE 37 Units/L (12-78); ALBUMIN 2.3 g/dL (3.4-5.0); ALKALINE PHOSPHATASE 77 Units/L (46-116); ASPARTATE AMINO TRANSFERASE 17 Units/L (15-37); BLOOD UREA NITROGEN 25 mg/dL (7-18); CALCIUM 7.8 mg/dL (8.5-10.1); CARBON DIOXIDE 24.1 mmol/L (21-32); CHLORIDE 109 mmol/L (98-107); COR CA(FOR HYPOALB) 9.2 mg/dL (8.5-10.1); COR NA(FOR HYPERGLY) 143 mmol/L (136-145); CREATININE 1.07 mg/dL (0.70-1.30); MAGNESIUM 1.2 mg/dL (1.7-2.9); SODIUM 141 mmol/L (136-145); TOTAL PROTEIN 5.8 g/dL (6.4-8.2); eGFR NON BLACK RACES > 60 (>60)
--- NOTE | 2019-07-10 06:14 | RAD ---
HISTORYShortness of breathSTUDYCHEST, [address] [facility] Hospitaluary 2019FINDINGSThe heart is within normal limits in size. The mariela are normal. Mild interstitial lung changes are present in the lung bases not significantly different from the prior examination. No pleural effusions are identified. The bony thorax is unremarkable.IMPRESSIONMild bibasilar interstitial lung changes, stableElectronically signed by: ZEESHAN REY (Jul 10, 2019 06:13:00)
[2019-07-10] MEDS: LOVENOX INJ 40 MG SYR SC SCH (08:34)
[2019-07-10] MEDS: LASIX PO SCH (08:35)
[2019-07-10] MEDS: NORVASC TAB 5 MG PO SCH (08:35)
[2019-07-10] MEDS: BENICAR TAB 40 MG PO SCH (08:35)
[2019-07-10] MEDS: FLOMAX PO SCH (08:36)
[2019-07-10] MEDS: ZOLOFT PO SCH (08:36)
[2019-07-10] MEDS: COREG TAB 12.5 MG PO SCH (08:37)
[2019-07-10] MEDS: TEMOVATE CREAM EXT SCH ×2 (08:37→21:34)
[2019-07-10] MEDS: TAMIFLU PO SCH ×2 (08:37→21:34)
--- NOTE | 2019-07-10 09:39 | PCM.PROG ---
Progress Note - Progress Note for Day of Date of Exam: 07/09/19 - Subjective Subjective: IS BEING TREATED FOR ACUTE BRONCHITIS, INFLUENZA A, ATRIAL FIBRILLATION, HYPOKALEMIA, AND HYPOXEMIA. TODAY, HE IS ALERT AND ORIENTED, SITTING IN CHAIR ON MORNING ROUNDS. HE CONTINUES WITH COUGH, SHORTNESS OF BREATH, AND WEAKNESS. HE ALSO CONTINUES WITH REDNESS AND RASH TO SCROTUM. ON EXAMINATION, HEART IS REGULAR IN RATE AND RHYTHM. BILATERAL LUNGS ARE NOTED WITH SCATTERED WHEEZING THROUGHOUT. ABDOMEN IS ROUND, SOFT, AND NON-TENDER WITH NORMAL BOWEL SOUNDS NOTED IN ALL QUADRANTS. HIS VITALS THIS MORNING ARE: 98.0-84-20-96%-139/79. LABS WERE OBTAINED. ABNORMAL LAB VALUES INCLUDE THE FOLLOWING: RBC 3.72, HGB 11.3, HCT 33.8, CHLORIDE 109, BUN 26, GLUCOSE 171, CALCIUM 7.5, MAGNESIUM 1.6, TOTAL PROTEIN 5.8, ALBUMIN 2.2. BLOOD AND SPUTUM CULTURES PENDING. A CHEST XRAY WAS OBTAINED AND REVEALED: Stable bilateral lower lobe interstitial lung changes. HE IS CURRENTLY RECEIVING: NORMAL SALINE AT 75 ML/HR, IV FORTAZ, TAMIFLU 75MG PO BID, SOLU-MEDROL 40MG IV Q8H, RESPIRATORY TX, THE POTASSIUM AND MAGNESIUM PROTOCOLS, TORADOL 30MG IV Q8H PRN, TEMOVATE CREAM, SUPPLEMENTAL OXYGEN, AND HOME MEDS WERE RESUMED. WE WILL CONTINUE WITH CURRENT PLAN OF CARE TODAY. OTHERWISE, WE WILL FOLLOW UP WITH AM LABS AND CONTINUE TO MONITOR. - Past Medical Family Social History Past Med/Fam/Surg Hx: No changes since H&P Allergies: Allergies apixaban [From Eliquis] Allergy (Verified 07/05/18 13:37) - Review of Systems ROS: No change since H&P - Vital Signs and I&O's Vital Signs: Temperature 98.4 F Pulse Rate 82 Respiratory Rate 19 Blood Pressure [Left Arm] 147/81 Blood Pressure [Right Arm] 123/75 Blood Pressure 129/81 O2 Sat by Pulse Oximetry 97 Intake and Output: Intake & Output 07/07/19 07/08/19 07/09/19 07/10/19 11:59 11:59 11:59 11:59 Intake Total 2235 / 2235 3744 / 3744 6347 / 6347 6223 / 6223 Output Total 1750 / 1750 1675 / 1675 4250 / 4250 2575 / 2575 Balance 485 / 485 2069 / 2069 7 / 209 3648 / 3648 - Physical Exam Oriented: Normal Eyes: Normal Ear: Normal Nose: Normal Throat: Normal Respiratory: Generalized, Wheezes Cardiovascular: Normal. negative: S3, S4, Murmur : Normal Auscultation: Bowel Sounds: Normal Palpation: Normal Tenderness: Normal Skin: Normal Musculoskeletal: Normal Psychiatric: Normal Mood Description: Calm Affect: Normal Speech Pattern: Clear, Appropriate - Laboratory and Diagnostics Result Diagrams: 07/10/19 04:20 07/10/19 04:20 Labs: 07/06/19 20:09 Sputum - Expectorated Sputum Sputum Culture - Final Enterobacter Agglomerans 07/06/19 20:09 Sputum - Expectorated Sputum - Final 07/06/19 17:36 Blood Blood Culture - Preliminary 07/06/19 17:36 Blood Blood Culture - Preliminary Laboratory WBC 9.7 X10^3/uL (3.6-10.0) 07/10/19 04:20 RBC 3.99 X10^6/uL (4.7-6.0) L 07/10/19 04:20 Hgb 12.0 g/dL (13.5-18.0) L 07/10/19 04:20 Hct 36.0 % (42.0-54.0) L 07/10/19 04:20 MCV 90.3 fL (80.0-100.0) 07/10/19 04:20 MCH 30.1 pg (27.0-34.0) 07/10/19 04:20 MCHC 33.3 g/dL (33.0-35.0) 07/10/19 04:20 RDW 16.9 % (11.6-16.5) H 07/10/19 04:20 Plt Count 181 X10^3/uL (150.0-450.0) 07/10/19 04:20 Plt Count Comment Adequate (ADEQUATE) 07/09/19 05:03 MPV 7.8 fL (7.4-11.0) 07/10/19 04:20 Neut % (Auto) 86.5 % (42.0-75.0) H 07/10/19 04:20 Lymph % (Auto) 9.0 % (21.0-51.0) L 07/10/19 04:20 [place] % (Auto) 4.4 % (0.0-13.0) 07/10/19 04:20 Eos % (Auto) 0.0 % (0.9-2.9) L 07/10/19 04:20 Baso % (Auto) 0.1 % (0.2-1.0) L 07/10/19 04:20 Neut # (Auto) 8.4 x10^3/uL (2.2-4.8) H 07/10/19 04:20 Lymph # (Auto) 0.9 X10^3/uL (1.3-2.9) L 07/10/19 04:20 [place] # (Auto) 0.4 x10^3/uL (0.3-0.8) 07/10/19 04:20 Eos # (Auto) 0.0 x10^3/uL (0.0-0.2) 07/10/19 04:20 Baso # (Auto) 0.0 X10^3/uL (0.0-0.1) 07/10/19 04:20 Absolute Nucleated RBC 0.1 /100WBC 07/10/19 04:20 Total Counted 100 07/09/19 05:03 Neutrophils % (Manual) 88 % (39-76) H 07/09/19 05:03 Band Neutrophils % 3 % (0-10) 07/09/19 05:03 Lymphocytes % (Manual) 6 % (13-43) L 07/09/19 05:03 Monocytes % (Manual) 3 % (4-9) L 07/09/19 05:03 Plt Morphology Comment Normal (NORMAL) 07/09/19 05:03 RBC Morphology Normal (NORMAL) 07/09/19 05:03 PT 13.8 SECONDS (11.8-14.3) 07/06/19 10:31 INR Target Range - 07/06/19 10:31 INR 1.10 (0.8-1.3) 07/06/19 10:31 APTT 30.9 SECONDS (22.9-36.5) 07/06/19 10:31 PTT Comment - 07/06/19 10:31 Sample Site [facility] 07/06/19 12:24 ABG pH 7.450 (7.35-7.45) 07/06/19 12:24 ABG pCO2 33.0 mmHg (35.0-45.0) L 07/06/19 12:24 ABG pO2 67.0 mmHg (80.0-100.0) L 07/06/19 12:24 ABG HCO3 22.9 mmol/L (22-26) 07/06/19 12:24 ABG O2 Saturation 94.0 % (90-100) 07/06/19 12:24 ABG Base Excess -0.5 mmol/L (-2.0-2.0) 07/06/19 12:24 Geoff Test N/a 07/06/19 12:24 A-a Gradient 91.0 mmHg 07/06/19 12:24 FiO2 28.0 07/06/19 12:24 Blood Gas Comments Pt nyla well eb 07/06/19 12:24 Sodium 141 mmol/L (136-145) 07/10/19 04:20 Corrected Sodium 143 mmol/L (136-145) 07/10/19 04:20 Potassium 3.3 mmol/L (3.5-5.1) L 07/10/19 04:20 Chloride 109 mmol/L (98-107) H 07/10/19 04:20 Carbon Dioxide 24.1 mmol/L (21-32) 07/10/19 04:20 BUN 25 mg/dL (7-18) H 07/10/19 04:20 Creatinine 1.07 mg/dL (0.70-1.30) 07/10/19 04:20 Est GFR (MDRD) Af Amer > 60 (>60) 07/10/19 04:20 Est GFR (MDRD) Non-Af > 60 (>60) 07/10/19 04:20 Glucose 175 mg/dL (65-99) H 07/10/19 04:20 POC Glucose (mg/dL) 152 mg/dL (65-99) H 07/10/19 05:32 Calcium 7.8 mg/dL (8.5-10.1) L 07/10/19 04:20 Corrected Calcium 9.2 mg/dL (8.5-10.1) 07/10/19 04:20 Phosphorus 2.6 mg/dL (2.6-4.7) 07/08/19 04:50 Magnesium 1.2 mg/dL (1.7-2.9) L 07/10/19 04:20 Total Bilirubin 0.30 mg/dL (0.2-1.0) 07/10/19 04:20 AST 17 Units/L (15-37) 07/10/19 04:20 ALT 37 Units/L (12-78) 07/10/19 04:20 Alkaline Phosphatase 77 Units/L (46-116) 07/10/19 04:20 Creatine Kinase 53 Units/L (39-308) 07/06/19 10:31 CK-MB (CK-2) < 1.0 ng/mL (0-4.0) 07/06/19 10:31 CK/CKMB % Calc 1.9 % (<4) 07/06/19 10:31 Troponin I < 0.02 ng/mL (0-1.5) 07/06/19 10:31 Total Protein 5.8 g/dL (6.4-8.2) L 07/10/19 04:20 Albumin 2.3 g/dL (3.4-5.0) L 07/10/19 04:20 Globulin 3.5 g/dL (2.5-4.5) 07/10/19 04:20 Albumin/Globulin Ratio 0.7 Ratio (1.1-2.1) L 07/10/19 04:20 Prealbumin 17.7 mg/dL (18-35.7) L 07/08/19 04:50 Triglycerides 84 mg/dL (0-150) 07/08/19 04:50 Specimen Type Clean catch urine 07/06/19 10:17 Urine Color Yellow (YELLOW) 07/06/19 10:17 Urine Appearance Clear (CLEAR) 07/06/19 10:17 Urine pH 5.0 (5.0 - 8.0) 07/06/19 10:17 Ur Specific [place] 1.025 (1.000-1.030) 07/06/19 10:17 Urine Protein 4+ (NEGATIVE) 07/06/19 10:17 Urine Glucose (UA) Negative (NEGATIVE) 07/06/19 10:17 Urine Ketones Negative (NEGATIVE) 07/06/19 10:17 Urine Occult Blood 2+ (NEGATIVE) 07/06/19 10:17 Urine Nitrite Negative (NEGATIVE) 07/06/19 10:17 Urine Bilirubin Negative (NEGATIVE) 07/06/19 10:17 Urine Urobilinogen Normal (NORMAL) 07/06/19 10:17 Ur Leukocyte Esterase Negative (NEGATIVE) 07/06/19 10:17 Urine RBC 3-5 /HPF (0-3) A 07/06/19 10:17 Urine WBC 3-5 /HPF (0-5) 07/06/19 10:17 Ur Squamous Epith Cells Moderate /HPF (NEGATIVE) 07/06/19 10:17 Amorphous Sediment 1+ /HPF (NEGATIVE) 07/06/19 10:17 Urine Bacteria Trace /HPF (NEGATIVE) 07/06/19 10:17 Hyaline Casts Rare /LPF (NEGATIVE) 07/06/19 10:17 Urine Mucus Moderate /HPF (NEGATIVE) 07/06/19 10:17 Ur Culture Indicated? No/not indicated 07/06/19 10:17 Influenza Type A (PCR) Positive (NEGATIVE) A 07/06/19 10:15 Influenza Type B (PCR) Negative (NEGATIVE) 07/06/19 10:15 S. pyogenes (TEM-PCR) Not detected (NOT DETECT) 07/06/19 10:15 - Plan (1) Acute bronchitis Status: Acute Qualifiers: Bronchitis organism: unspecified organism Qualified Code(s): J20.9 - Acute bronchitis, unspecified Plan: IV FORTAZ, RESPIRATORY TX, SUPPLEMENTAL OXYGEN, CONTINUE TO MONITOR (2) Influenza A with respiratory manifestations Status: Acute Plan: TAMIFLU 75MG PO BID, CONTINUE TO MONITOR (3) Atrial fibrillation Status: Acute Qualifiers: Atrial fibrillation type: longstanding persistent Qualified Code(s): I48.11 - Longstanding persistent atrial fibrillation (4) Hypokalemia Status: Acute Plan: POTASSIUM PROTOCOL, CONTINUE TO MONITOR (5) Hypoxemia Status: Acute
[2019-07-10] MEDS ORDERED: DRUG FILTER EXTENSION SET ONE (16:40)
--- NOTE | 2019-07-10 19:24 | PCM.PROG ---
Progress Note - Progress Note for Day of Date of Exam: 07/10/19 - Subjective Subjective: IS BEING TREATED FOR ACUTE BRONCOPNEUMONIA, INFLUENZA A, ATRIAL FIBRILLATION, HYPOKALEMIA, AND HYPOXEMIA. TODAY, HE IS ALERT AND ORIENTED, SITTING IN CHAIR ON MORNING ROUNDS. HE CONTINUES WITH COUGH, SHORTNESS OF BREATH, AND WEAKNESS. HE ALSO CONTINUES WITH REDNESS AND RASH TO SCROTUM. ON EXAMINATION, HEART IS REGULAR IN RATE AND RHYTHM. BILATERAL LUNGS ARE NOTED WITH SCATTERED WHEEZING THROUGHOUT. ABDOMEN IS ROUND, SOFT, AND NON-TENDER WITH NORMAL BOWEL SOUNDS NOTED IN ALL QUADRANTS. HIS VITALS THIS MORNING ARE: 98.4-84-17-96%-118/87. LABS WERE OBTAINED. ABNORMAL LAB VALUES INCLUDE THE FOLLOWING: RBC 3.99, HGB 12.0, HCT 36.0, POTASSIUM 3.3, CHLORIDE 109, BUN 25, GLUCOSE 175, CALCIUM 7.8, MAGNESIUM 1.2, TOTAL PROTEIN 5.8, ALBUMIN 2.3. SPUTUM CULTURES REPORT GROWTH OF ENTEROBACTER AGGLOMERANS. A CHEST XRAY WAS OBTAINED AND REVEALED: Mild bibasilar interstitial lung changes, stable. HE IS CURRENTLY RECEIVING: NORMAL SALINE AT 75 ML/HR, IV FORTAZ, TAMIFLU 75MG PO BID, SOLU- MEDROL 40MG IV Q8H, RESPIRATORY TX, THE POTASSIUM AND MAGNESIUM PROTOCOLS, TORADOL 30MG IV Q8H PRN, TEMOVATE CREAM, SUPPLEMENTAL OXYGEN, AND HOME MEDS WERE RESUMED. WE WILL CONTINUE WITH CURRENT PLAN OF CARE TODAY. OTHERWISE, WE WILL FOLLOW UP WITH AM LABS AND CONTINUE TO MONITOR. - Past Medical Family Social History Past Med/Fam/Surg Hx: No changes since H&P Allergies: Allergies apixaban [From Eliquis] Allergy (Verified 07/05/18 13:37) - Review of Systems ROS: No change since H&P - Vital Signs and I&O's Vital Signs: Temperature 98.3 F Pulse Rate 82 Respiratory Rate 20 Blood Pressure [Left Arm] 147/81 Blood Pressure [Right Arm] 123/75 Blood Pressure 132/72 O2 Sat by Pulse Oximetry 96 Intake and Output: Intake & Output 07/08/19 07/09/19 07/10/19 07/11/19 11:59 11:59 11:59 11:59 Intake Total 3744 / 3744 6347 / 6347 6223 / 6223 2812 / 2812 Output Total 1675 / 1675 4250 / 4250 2575 / 2575 3000 / 3000 Balance 2068 / 2068 2096 / 2096 3648 / 3648 -188 / -188 - Physical Exam Oriented: Normal Eyes: Normal Ear: Normal Nose: Normal Throat: Normal Respiratory: Generalized, Wheezes Cardiovascular: Normal. negative: S3, S4, Murmur : Normal Auscultation: Bowel Sounds: Normal Palpation: Normal Tenderness: Normal Skin: Normal Musculoskeletal: Normal Psychiatric: Normal Mood Description: Calm Affect: Normal Speech Pattern: Clear, Appropriate - Laboratory and Diagnostics Result Diagrams: 07/10/19 04:20 07/10/19 04:20 Labs: 07/06/19 20:09 Sputum - Expectorated Sputum Sputum Culture - Final Enterobacter Agglomerans 07/06/19 20:09 Sputum - Expectorated Sputum - Final 07/06/19 17:36 Blood Blood Culture - Preliminary 07/06/19 17:36 Blood Blood Culture - Preliminary Laboratory WBC 9.7 X10^3/uL (3.6-10.0) 07/10/19 04:20 RBC 3.99 X10^6/uL (4.7-6.0) L 07/10/19 04:20 Hgb 12.0 g/dL (13.5-18.0) L 07/10/19 04:20 Hct 36.0 % (42.0-54.0) L 07/10/19 04:20 MCV 90.3 fL (80.0-100.0) 07/10/19 04:20 MCH 30.1 pg (27.0-34.0) 07/10/19 04:20 MCHC 33.3 g/dL (33.0-35.0) 07/10/19 04:20 RDW 16.9 % (11.6-16.5) H 07/10/19 04:20 Plt Count 181 X10^3/uL (150.0-450.0) 07/10/19 04:20 Plt Count Comment Adequate (ADEQUATE) 07/09/19 05:03 MPV 7.8 fL (7.4-11.0) 07/10/19 04:20 Neut % (Auto) 86.5 % (42.0-75.0) H 07/10/19 04:20 Lymph % (Auto) 9.0 % (21.0-51.0) L 07/10/19 04:20 [place] % (Auto) 4.4 % (0.0-13.0) 07/10/19 04:20 Eos % (Auto) 0.0 % (0.9-2.9) L 07/10/19 04:20 Baso % (Auto) 0.1 % (0.2-1.0) L 07/10/19 04:20 Neut # (Auto) 8.4 x10^3/uL (2.2-4.8) H 07/10/19 04:20 Lymph # (Auto) 0.9 X10^3/uL (1.3-2.9) L 07/10/19 04:20 [place] # (Auto) 0.4 x10^3/uL (0.3-0.8) 07/10/19 04:20 Eos # (Auto) 0.0 x10^3/uL (0.0-0.2) 07/10/19 04:20 Baso # (Auto) 0.0 X10^3/uL (0.0-0.1) 07/10/19 04:20 Absolute Nucleated RBC 0.1 /100WBC 07/10/19 04:20 Total Counted 100 07/09/19 05:03 Neutrophils % (Manual) 88 % (39-76) H 07/09/19 05:03 Band Neutrophils % 3 % (0-10) 07/09/19 05:03 Lymphocytes % (Manual) 6 % (13-43) L 07/09/19 05:03 Monocytes % (Manual) 3 % (4-9) L 07/09/19 05:03 Plt Morphology Comment Normal (NORMAL) 07/09/19 05:03 RBC Morphology Normal (NORMAL) 07/09/19 05:03 PT 13.8 SECONDS (11.8-14.3) 07/06/19 10:31 INR Target Range - 07/06/19 10:31 INR 1.10 (0.8-1.3) 07/06/19 10:31 APTT 30.9 SECONDS (22.9-36.5) 07/06/19 10:31 PTT Comment - 07/06/19 10:31 Sample Site Rbra 07/06/19 12:24 ABG pH 7.450 (7.35-7.45) 07/06/19 12:24 ABG pCO2 33.0 mmHg (35.0-45.0) L 07/06/19 12:24 ABG pO2 67.0 mmHg (80.0-100.0) L 07/06/19 12:24 ABG HCO3 22.9 mmol/L (22-26) 07/06/19 12:24 ABG O2 Saturation 94.0 % (90-100) 07/06/19 12:24 ABG Base Excess -0.5 mmol/L (-2.0-2.0) 07/06/19 12:24 Geoff Test N/a 07/06/19 12:24 A-a Gradient 91.0 mmHg 07/06/19 12:24 FiO2 28.0 07/06/19 12:24 Blood Gas Comments Pt nyla well eb 07/06/19 12:24 Sodium 141 mmol/L (136-145) 07/10/19 04:20 Corrected Sodium 143 mmol/L (136-145) 07/10/19 04:20 Potassium 3.3 mmol/L (3.5-5.1) L 07/10/19 04:20 Chloride 109 mmol/L (98-107) H 07/10/19 04:20 Carbon Dioxide 24.1 mmol/L (21-32) 07/10/19 04:20 BUN 25 mg/dL (7-18) H 07/10/19 04:20 Creatinine 1.07 mg/dL (0.70-1.30) 07/10/19 04:20 Est GFR (MDRD) Af Amer > 60 (>60) 07/10/19 04:20 Est GFR (MDRD) Non-Af > 60 (>60) 07/10/19 04:20 Glucose 175 mg/dL (65-99) H 07/10/19 04:20 POC Glucose (mg/dL) 140 mg/dL (65-99) H 07/10/19 13:41 Calcium 7.8 mg/dL (8.5-10.1) L 07/10/19 04:20 Corrected Calcium 9.2 mg/dL (8.5-10.1) 07/10/19 04:20 Phosphorus 2.6 mg/dL (2.6-4.7) 07/08/19 04:50 Magnesium 1.2 mg/dL (1.7-2.9) L 07/10/19 04:20 Total Bilirubin 0.30 mg/dL (0.2-1.0) 07/10/19 04:20 AST 17 Units/L (15-37) 07/10/19 04:20 ALT 37 Units/L (12-78) 07/10/19 04:20 Alkaline Phosphatase 77 Units/L (46-116) 07/10/19 04:20 Creatine Kinase 53 Units/L (39-308) 07/06/19 10:31 CK-MB (CK-2) < 1.0 ng/mL (0-4.0) 07/06/19 10:31 CK/CKMB % Calc 1.9 % (<4) 07/06/19 10:31 Troponin I < 0.02 ng/mL (0-1.5) 07/06/19 10:31 Total Protein 5.8 g/dL (6.4-8.2) L 07/10/19 04:20 Albumin 2.3 g/dL (3.4-5.0) L 07/10/19 04:20 Globulin 3.5 g/dL (2.5-4.5) 07/10/19 04:20 Albumin/Globulin Ratio 0.7 Ratio (1.1-2.1) L 07/10/19 04:20 Prealbumin 17.7 mg/dL (18-35.7) L 07/08/19 04:50 Triglycerides 84 mg/dL (0-150) 07/08/19 04:50 Specimen Type Clean catch urine 07/06/19 10:17 Urine Color Yellow (YELLOW) 07/06/19 10:17 Urine Appearance Clear (CLEAR) 07/06/19 10:17 Urine pH 5.0 (5.0 - 8.0) 07/06/19 10:17 Ur Specific [place] 1.025 (1.000-1.030) 07/06/19 10:17 Urine Protein 4+ (NEGATIVE) 07/06/19 10:17 Urine Glucose (UA) Negative (NEGATIVE) 07/06/19 10:17 Urine Ketones Negative (NEGATIVE) 07/06/19 10:17 Urine Occult Blood 2+ (NEGATIVE) 07/06/19 10:17 Urine Nitrite Negative (NEGATIVE) 07/06/19 10:17 Urine Bilirubin Negative (NEGATIVE) 07/06/19 10:17 Urine Urobilinogen Normal (NORMAL) 07/06/19 10:17 Ur Leukocyte Esterase Negative (NEGATIVE) 07/06/19 10:17 Urine RBC 3-5 /HPF (0-3) A 07/06/19 10:17 Urine WBC 3-5 /HPF (0-5) 07/06/19 10:17 Ur Squamous Epith Cells Moderate /HPF (NEGATIVE) 07/06/19 10:17 Amorphous Sediment 1+ /HPF (NEGATIVE) 07/06/19 10:17 Urine Bacteria Trace /HPF (NEGATIVE) 07/06/19 10:17 Hyaline Casts Rare /LPF (NEGATIVE) 07/06/19 10:17 Urine Mucus Moderate /HPF (NEGATIVE) 07/06/19 10:17 Ur Culture Indicated? No/not indicated 07/06/19 10:17 Influenza Type A (PCR) Positive (NEGATIVE) A 07/06/19 10:15 Influenza Type B (PCR) Negative (NEGATIVE) 07/06/19 10:15 S. pyogenes (TEM-PCR) Not detected (NOT DETECT) 07/06/19 10:15 - Plan (1) Bronchopneumonia Status: Acute Plan: IV FORTAZ, RESPIRATORY TX, SUPPLEMENTAL OXYGEN, CONTINUE TO MONITOR (2) Influenza A with respiratory manifestations Status: Acute Plan: TAMIFLU 75MG PO BID, CONTINUE TO MONITOR (3) Atrial fibrillation Status: Acute Qualifiers: Atrial fibrillation type: longstanding persistent Qualified Code(s): I48.11 - Longstanding persistent atrial fibrillation (4) Hypokalemia Status: Acute Plan: POTASSIUM PROTOCOL, CONTINUE TO MONITOR (5) Hypoxemia Status: Acute
[2019-07-10] MEDS: XANAX PO PRN (21:32)
[2019-07-11] MEDS: XOPENEX 1.25 MG/3 ML NEBULE NEB SCH ×4 (01:30→20:07)
[2019-07-11] MEDS ORDERED: ROBITUSSIN (PLAIN) ONE (02:54)
[2019-07-11] MEDS: MAGNESIUM SULFATE 1 GRAM/100 mL PREMIX 1 GM/100 ML BAG IV PRN ×4 (05:44→13:27)
--- NOTE | 2019-07-11 06:25 | RAD ---
HISTORYShortness of breathSTUDYCHEST, 1 VIEWCOMDu[facility] Hospitaluary 2019FINDINGSThe heart remains within normal limits in size. The mariela are normal. The lungs are free of acute alveolar infiltrates. No definite residual interstitial lung changes are present. No pleural effusions are identified. The bony thorax is unremarkable.IMPRESSIONLungs now clearElectronically signed by: ZEESHAN REY (Jul 11, 2019 06:23:43)
[2019-07-11] MEDS: FORTAZ or TAZICEF VIAL INJ 1 G in NS 100 ML IV + SPIKE MINIBAG* 100 ML IV SCH ×3 (06:29→21:45)
[2019-07-11 06:31] LABS: BASOPHILS % (AUTO) 0.1 % (0.2-1.0); EOSINOPHILS % (AUTO) 0.2 % (0.9-2.9); HEMATOCRIT 38.8 % (42.0-54.0); HEMOGLOBIN 12.9 g/dL (13.5-18.0); LYMPHOCYTES # (AUTO) 1.2 X10^3/uL (1.3-2.9); LYMPHOCYTES % (AUTO) 16.4 % (21.0-51.0); MEAN CORPUSCULAR HEMOGLOBIN 29.7 pg (27.0-34.0); MEAN CORPUSCULAR HGB CONC 33.2 g/dL (33.0-35.0); MEAN CORPUSCULAR VOLUME 89.3 fL (80.0-100.0); MEAN PLATELET VOLUME 7.2 fL (7.4-11.0); MONOCYTES # (AUTO) 0.4 x10^3/uL (0.3-0.8); MONOCYTES % (AUTO) 5.5 % (0.0-13.0); NEUTROPHILS # (AUTO) 5.7 x10^3/uL (2.2-4.8); NEUTROPHILS % (AUTO) 77.8 % (42.0-75.0); PLATELET COUNT 174 X10^3/uL (150.0-450.0); RED BLOOD COUNT 4.34 X10^6/uL (4.7-6.0); RED CELL DISTRIBUTION WIDTH 16.7 % (11.6-16.5); WHITE BLOOD COUNT 7.4 X10^3/uL (3.6-10.0)
[2019-07-11] MEDS: NS 1000 ML 1,000 ML IV SCH ×2 (06:31→14:11)
[2019-07-11 06:49] LABS: ALANINE AMINOTRANSFERASE 52 Units/L (12-78); ALBUMIN 2.3 g/dL (3.4-5.0); ALKALINE PHOSPHATASE 74 Units/L (46-116); ASPARTATE AMINO TRANSFERASE 30 Units/L (15-37); BLOOD UREA NITROGEN 24 mg/dL (7-18); CALCIUM 7.6 mg/dL (8.5-10.1); CARBON DIOXIDE 27.6 mmol/L (21-32); CHLORIDE 109 mmol/L (98-107); CREATININE 1.09 mg/dL (0.70-1.30); PHOSPHORUS 1.8 mg/dL (2.6-4.7); SODIUM 142 mmol/L (136-145); TOTAL PROTEIN 5.9 g/dL (6.4-8.2); TRIGLYCERIDES 190 mg/dL (0-150); eGFR NON BLACK RACES > 60 (>60)
[2019-07-11] MEDS ORDERED: CLINIMIX IV SCH ×4 (09:00)
[2019-07-11] MEDS ORDERED: MVI IV SCH ×4 (09:00)
[2019-07-11] MEDS ORDERED: [UNRECOGNIZED DRUG - OTHER] IV SCH ×4 (09:00)
[2019-07-11] MEDS: LOVENOX INJ 40 MG SYR SC SCH (09:47)
[2019-07-11] MEDS: BENICAR TAB 40 MG PO SCH (09:48)
[2019-07-11] MEDS: FLOMAX PO SCH (09:48)
[2019-07-11] MEDS: ZOLOFT PO SCH (09:48)
[2019-07-11] MEDS: NORVASC TAB 5 MG PO SCH (09:49)
[2019-07-11] MEDS: TEMOVATE CREAM EXT SCH ×2 (09:49→21:47)
[2019-07-11] MEDS: COREG TAB 12.5 MG PO SCH (09:49)
[2019-07-11] MEDS: TAMIFLU PO SCH ×2 (09:49→21:44)
[2019-07-11] MEDS: LASIX PO SCH (09:49)
[2019-07-11] MEDS: ROBITUSSIN DM PO PRN ×2 (10:25→21:43)
--- NOTE | 2019-07-11 10:38 | PCM.PROG ---
Progress Note - Progress Note for Day of Date of Exam: 07/11/19 - Subjective Subjective: IS BEING TREATED FOR ACUTE BRONCOPNEUMONIA, INFLUENZA A, ATRIAL FIBRILLATION, HYPOKALEMIA, AND HYPOXEMIA. TODAY, HE IS ALERT AND ORIENTED, SITTING IN CHAIR ON MORNING ROUNDS. HE CONTINUES WITH COUGH, SHORTNESS OF BREATH, AND WEAKNESS, BUT REPORTS SLIGHT IMPROVEMENT IN SYMPTOMS. ON EXAMINATION, HEART IS REGULAR IN RATE AND RHYTHM. BILATERAL LUNGS ARE NOTED WITH SCATTERED WHEEZING THROUGHOUT. ABDOMEN IS ROUND, SOFT, AND NON-TENDER WITH NORMAL BOWEL SOUNDS NOTED IN ALL QUADRANTS. HIS VITALS THIS MORNING ARE: 98.4-83-20-96%-114/70. LABS WERE OBTAINED. ABNORMAL LAB VALUES INCLUDE THE FOLLOWING: RBC 4.34, HGB 12.9, HCT 38.8, POTASSIUM 3.1, CHLORIDE 109, BUN 24, CALCIUM 7.6, PHOSPHORUS 1.8, MAGNESIUM 1.2, TOTAL PROTEIN 5.9, ALBUMIN 2.3. SPUTUM CULTURES REPORT GROWTH OF ENTEROBACTER AGGLOMERANS. A CHEST XRAY WAS OBTAINED AND REVEALED: LUNGS NOW CLEAR. HE IS CURRENTLY RECEIVING: NORMAL SALINE AT 75 ML/HR, IV FORTAZ, TAMIFLU 75MG PO BID, SOLU-MEDROL 40MG IV Q8H, RESPIRATORY TX, THE POTASSIUM AND MAGNESIUM PROTOCOLS, TORADOL 30MG IV Q8H PRN, TEMOVATE CREAM, SUPPLEMENTAL OXYGEN, AND HOME MEDS WERE RESUMED. WE WILL CONTINUE WITH CURRENT PLAN OF CARE TODAY. OTHERWISE, WE WILL FOLLOW UP WITH AM LABS AND CONTINUE TO MONITOR. - Past Medical Family Social History Past Med/Fam/Surg Hx: No changes since H&P Allergies: Allergies apixaban [From Eliquis] Allergy (Verified 07/05/18 13:37) - Review of Systems ROS: No change since H&P - Vital Signs and I&O's Vital Signs: Temperature 98.4 F Pulse Rate [Brachial] 83 Pulse Rate 82 Respiratory Rate 20 Blood Pressure [Left Arm] 114/70 Blood Pressure [Right Arm] 123/75 Blood Pressure 132/72 O2 Sat by Pulse Oximetry 96 Intake and Output: Intake & Output 07/08/19 07/09/19 07/10/19 07/11/19 11:59 11:59 11:59 11:59 Intake Total 3744 / 3744 6347 / 6347 6223 / 6223 3412 / 3412 Output Total 1675 / 1675 4250 / 4250 2575 / 2575 5800 / 5800 Balance 2068 / 2068 2096 / 2096 3648 / 3648 -2388 / -2388 - Physical Exam Oriented: Normal Eyes: Normal Ear: Normal Nose: Normal Throat: Normal Respiratory: Generalized, Wheezes Cardiovascular: Normal. negative: S3, S4, Murmur : Normal Auscultation: Bowel Sounds: Normal Palpation: Normal Tenderness: Normal Skin: Normal Musculoskeletal: Normal Psychiatric: Normal Mood Description: Calm Affect: Normal Speech Pattern: Clear, Appropriate - Laboratory and Diagnostics Result Diagrams: 07/11/19 05:58 07/11/19 05:58 Labs: 07/06/19 20:09 Sputum - Expectorated Sputum Sputum Culture - Final Enterobacter Agglomerans 07/06/19 20:09 Sputum - Expectorated Sputum - Final 07/06/19 17:36 Blood Blood Culture - Preliminary 07/06/19 17:36 Blood Blood Culture - Preliminary Laboratory WBC 7.4 X10^3/uL (3.6-10.0) 07/11/19 05:58 RBC 4.34 X10^6/uL (4.7-6.0) L 07/11/19 05:58 Hgb 12.9 g/dL (13.5-18.0) L 07/11/19 05:58 Hct 38.8 % (42.0-54.0) L 07/11/19 05:58 MCV 89.3 fL (80.0-100.0) 07/11/19 05:58 MCH 29.7 pg (27.0-34.0) 07/11/19 05:58 MCHC 33.2 g/dL (33.0-35.0) 07/11/19 05:58 RDW 16.7 % (11.6-16.5) H 07/11/19 05:58 Plt Count 174 X10^3/uL (150.0-450.0) 07/11/19 05:58 Plt Count Comment Adequate (ADEQUATE) 07/09/19 05:03 MPV 7.2 fL (7.4-11.0) L 07/11/19 05:58 Neut % (Auto) 77.8 % (42.0-75.0) H 07/11/19 05:58 Lymph % (Auto) 16.4 % (21.0-51.0) L 07/11/19 05:58 [place] % (Auto) 5.5 % (0.0-13.0) 07/11/19 05:58 Eos % (Auto) 0.2 % (0.9-2.9) L 07/11/19 05:58 Baso % (Auto) 0.1 % (0.2-1.0) L 07/11/19 05:58 Neut # (Auto) 5.7 x10^3/uL (2.2-4.8) H 07/11/19 05:58 Lymph # (Auto) 1.2 X10^3/uL (1.3-2.9) L 07/11/19 05:58 Power # (Auto) 0.4 x10^3/uL (0.3-0.8) 07/11/19 05:58 Eos # (Auto) 0.0 x10^3/uL (0.0-0.2) 07/11/19 05:58 Baso # (Auto) 0.0 X10^3/uL (0.0-0.1) 07/11/19 05:58 Absolute Nucleated RBC 0.0 /100WBC 07/11/19 05:58 Total Counted 100 07/09/19 05:03 Neutrophils % (Manual) 88 % (39-76) H 07/09/19 05:03 Band Neutrophils % 3 % (0-10) 07/09/19 05:03 Lymphocytes % (Manual) 6 % (13-43) L 07/09/19 05:03 Monocytes % (Manual) 3 % (4-9) L 07/09/19 05:03 Plt Morphology Comment Normal (NORMAL) 07/09/19 05:03 RBC Morphology Normal (NORMAL) 07/09/19 05:03 PT 13.8 SECONDS (11.8-14.3) 07/06/19 10:31 INR Target Range - 07/06/19 10:31 INR 1.10 (0.8-1.3) 07/06/19 10:31 APTT 30.9 SECONDS (22.9-36.5) 07/06/19 10:31 PTT Comment - 07/06/19 10:31 Sample Site Rbra 07/06/19 12:24 ABG pH 7.450 (7.35-7.45) 07/06/19 12:24 ABG pCO2 33.0 mmHg (35.0-45.0) L 07/06/19 12:24 ABG pO2 67.0 mmHg (80.0-100.0) L 07/06/19 12:24 ABG HCO3 22.9 mmol/L (22-26) 07/06/19 12:24 ABG O2 Saturation 94.0 % (90-100) 07/06/19 12:24 ABG Base Excess -0.5 mmol/L (-2.0-2.0) 07/06/19 12:24 Geoff Test N/a 07/06/19 12:24 A-a Gradient 91.0 mmHg 07/06/19 12:24 FiO2 28.0 07/06/19 12:24 Blood Gas Comments Pt nyla well eb 07/06/19 12:24 Sodium 142 mmol/L (136-145) 07/11/19 05:58 Corrected Sodium TNP 07/11/19 05:58 Potassium 3.1 mmol/L (3.5-5.1) L 07/11/19 05:58 Chloride 109 mmol/L (98-107) H 07/11/19 05:58 Carbon Dioxide 27.6 mmol/L (21-32) 07/11/19 05:58 BUN 24 mg/dL (7-18) H 07/11/19 05:58 Creatinine 1.09 mg/dL (0.70-1.30) 07/11/19 05:58 Est GFR (MDRD) Af Amer > 60 (>60) 07/11/19 05:58 Est GFR (MDRD) Non-Af > 60 (>60) 07/11/19 05:58 Glucose 95 mg/dL (65-99) 07/11/19 05:58 POC Glucose (mg/dL) 103 mg/dL (65-99) H 07/11/19 05:26 Calcium 7.6 mg/dL (8.5-10.1) L 07/11/19 05:58 Corrected Calcium 9.0 mg/dL (8.5-10.1) 07/11/19 05:58 Phosphorus 1.8 mg/dL (2.6-4.7) L 07/11/19 05:58 Magnesium 1.2 mg/dL (1.7-2.9) L 07/11/19 05:58 Total Bilirubin 0.40 mg/dL (0.2-1.0) 07/11/19 05:58 AST 30 Units/L (15-37) 07/11/19 05:58 ALT 52 Units/L (12-78) 07/11/19 05:58 Alkaline Phosphatase 74 Units/L (46-116) 07/11/19 05:58 Creatine Kinase 53 Units/L (39-308) 07/06/19 10:31 CK-MB (CK-2) < 1.0 ng/mL (0-4.0) 07/06/19 10:31 CK/CKMB % Calc 1.9 % (<4) 07/06/19 10:31 Troponin I < 0.02 ng/mL (0-1.5) 07/06/19 10:31 Total Protein 5.9 g/dL (6.4-8.2) L 07/11/19 05:58 Albumin 2.3 g/dL (3.4-5.0) L 07/11/19 05:58 Globulin 3.6 g/dL (2.5-4.5) 07/11/19 05:58 Albumin/Globulin Ratio 0.6 Ratio (1.1-2.1) L 07/11/19 05:58 Prealbumin 17.7 mg/dL (18-35.7) L 07/08/19 04:50 Triglycerides 190 mg/dL (0-150) H 07/11/19 05:58 Specimen Type Clean catch urine 07/06/19 10:17 Urine Color Yellow (YELLOW) 07/06/19 10:17 Urine Appearance Clear (CLEAR) 07/06/19 10:17 Urine pH 5.0 (5.0 - 8.0) 07/06/19 10:17 Ur Specific [place] 1.025 (1.000-1.030) 07/06/19 10:17 Urine Protein 4+ (NEGATIVE) 07/06/19 10:17 Urine Glucose (UA) Negative (NEGATIVE) 07/06/19 10:17 Urine Ketones Negative (NEGATIVE) 07/06/19 10:17 Urine Occult Blood 2+ (NEGATIVE) 07/06/19 10:17 Urine Nitrite Negative (NEGATIVE) 07/06/19 10:17 Urine Bilirubin Negative (NEGATIVE) 07/06/19 10:17 Urine Urobilinogen Normal (NORMAL) 07/06/19 10:17 Ur Leukocyte Esterase Negative (NEGATIVE) 07/06/19 10:17 Urine RBC 3-5 /HPF (0-3) A 07/06/19 10:17 Urine WBC 3-5 /HPF (0-5) 07/06/19 10:17 Ur Squamous Epith Cells Moderate /HPF (NEGATIVE) 07/06/19 10:17 Amorphous Sediment 1+ /HPF (NEGATIVE) 07/06/19 10:17 Urine Bacteria Trace /HPF (NEGATIVE) 07/06/19 10:17 Hyaline Casts Rare /LPF (NEGATIVE) 07/06/19 10:17 Urine Mucus Moderate /HPF (NEGATIVE) 07/06/19 10:17 Ur Culture Indicated? No/not indicated 07/06/19 10:17 Influenza Type A (PCR) Positive (NEGATIVE) A 07/06/19 10:15 Influenza Type B (PCR) Negative (NEGATIVE) 07/06/19 10:15 S. pyogenes (TEM-PCR) Not detected (NOT DETECT) 07/06/19 10:15 - Plan (1) Bronchopneumonia Status: Acute Plan: IV FORTAZ, RESPIRATORY TX, SUPPLEMENTAL OXYGEN, CONTINUE TO MONITOR (2) Influenza A with respiratory manifestations Status: Acute Plan: TAMIFLU 75MG PO BID, CONTINUE TO MONITOR (3) Atrial fibrillation Status: Acute Qualifiers: Atrial fibrillation type: longstanding persistent Qualified Code(s): I48.11 - Longstanding persistent atrial fibrillation (4) Hypokalemia Status: Acute Plan: POTASSIUM PROTOCOL, CONTINUE TO MONITOR (5) Hypoxemia Status: Acute
[2019-07-11] MEDS: TORADOL 30 MG VIAL IVP PRN ×2 (12:00→21:43)
[2019-07-11] MEDS: HumuLIN R SUBCUT PRN (14:19)
[2019-07-11] MEDS: XANAX PO PRN (21:44)
[2019-07-12] MEDS: NS 1000 ML 1,000 ML IV SCH ×2 (04:08→07:06)
[2019-07-12] MEDS: XOPENEX 1.25 MG/3 ML NEBULE NEB SCH (05:10)
[2019-07-12 06:49] LABS: BASOPHILS % (AUTO) 0.1 % (0.2-1.0); EOSINOPHILS # (AUTO) 0.1 x10^3/uL (0.0-0.2); EOSINOPHILS % (AUTO) 0.9 % (0.9-2.9); HEMATOCRIT 39.2 % (42.0-54.0); HEMOGLOBIN 13.1 g/dL (13.5-18.0); LYMPHOCYTES # (AUTO) 1.6 X10^3/uL (1.3-2.9); LYMPHOCYTES % (AUTO) 23.8 % (21.0-51.0); MEAN CORPUSCULAR HEMOGLOBIN 29.9 pg (27.0-34.0); MEAN CORPUSCULAR HGB CONC 33.3 g/dL (33.0-35.0); MEAN CORPUSCULAR VOLUME 89.9 fL (80.0-100.0); MEAN PLATELET VOLUME 7.1 fL (7.4-11.0); MONOCYTES # (AUTO) 0.3 x10^3/uL (0.3-0.8); MONOCYTES % (AUTO) 4.5 % (0.0-13.0); NEUTROPHILS # (AUTO) 4.7 x10^3/uL (2.2-4.8); NEUTROPHILS % (AUTO) 70.7 % (42.0-75.0); PLATELET COUNT 187 X10^3/uL (150.0-450.0); RED BLOOD COUNT 4.36 X10^6/uL (4.7-6.0); WHITE BLOOD COUNT 6.6 X10^3/uL (3.6-10.0)
--- NOTE | 2019-07-12 06:52 | RAD ---
HISTORYSOBSTUDYCHEST x-ray, 1 VIEWCOMPARISONNoneFINDINGSHeart is likely normal in size. Patchy density at the left lung base is similar to prior study and could be atelectasis or pneumonia. Mild prominence of the superior mediastinum is probably due to vascular tortuosity, similar to prior study. Possible small left pleural effusion.IMPRESSIONPersistent left lower lobe opacity may be atelectasis or pneumonia.Electronically signed by: Eliel Coronado (Jul 12, 2019 06:51:41)
[2019-07-12] MEDS: FORTAZ or TAZICEF VIAL INJ 1 G in NS 100 ML IV + SPIKE MINIBAG* 100 ML IV SCH (07:06)
[2019-07-12 07:07] LABS: ALANINE AMINOTRANSFERASE 57 Units/L (12-78); ALBUMIN 2.4 g/dL (3.4-5.0); ALKALINE PHOSPHATASE 81 Units/L (46-116); ASPARTATE AMINO TRANSFERASE 33 Units/L (15-37); BLOOD UREA NITROGEN 27 mg/dL (7-18); CALCIUM 7.7 mg/dL (8.5-10.1); CARBON DIOXIDE 28.3 mmol/L (21-32); CHLORIDE 106 mmol/L (98-107); COR NA(FOR HYPERGLY) 140 mmol/L (136-145); CREATININE 1.06 mg/dL (0.70-1.30); MAGNESIUM 1.7 mg/dL (1.7-2.9); SODIUM 139 mmol/L (136-145); TOTAL PROTEIN 6.3 g/dL (6.4-8.2); eGFR NON BLACK RACES > 60 (>60)
[2019-07-12] MEDS ORDERED: MVI IV SCH ×4 (09:00)
[2019-07-12] MEDS ORDERED: [UNRECOGNIZED DRUG - OTHER] IV SCH ×4 (09:00)
[2019-07-12] MEDS ORDERED: CLINIMIX IV SCH ×4 (09:00)
[2019-07-12] MEDS: BENICAR TAB 40 MG PO SCH (09:45)
[2019-07-12] MEDS: LOVENOX INJ 40 MG SYR SC SCH (09:45)
[2019-07-12] MEDS: FLOMAX PO SCH (09:46)
[2019-07-12] MEDS: COREG TAB 12.5 MG PO SCH (09:46)
[2019-07-12] MEDS: LASIX PO SCH (09:46)
[2019-07-12] MEDS: TAMIFLU PO SCH (09:46)
[2019-07-12] MEDS: NORVASC TAB 5 MG PO SCH (09:46)
[2019-07-12] MEDS: ZOLOFT PO SCH (09:46)
[2019-07-12] MEDS: TEMOVATE CREAM EXT SCH (09:47)
[2019-07-12 12:08] VITALS: BP 100/57
== END 2019-07-12 13:50 | disposition home or self-care (01) | DRG 194 ==
LOC: ER 09:50 → ICU 13:02 → MED/SURG 07-10 13:47
PROVIDERS: ADMIT Internal Medicine; ATTEND Internal Medicine
DX: J10.1 Influenza due to other identified influenza virus with other respiratory manifestations; I10 Essential (primary) hypertension; E87.5 Hyperkalemia; Z92.21 Personal history of antineoplastic chemotherapy; R06.02 Shortness of breath; I48.11 Longstanding persistent atrial fibrillation; R94.31 Abnormal electrocardiogram [ECG] [EKG]; R09.02 Hypoxemia; R26.89 Other abnormalities of gait and mobility; J18.0 Bronchopneumonia, unspecified organism
CPT/HCPCS: 36415; 36600; 71010; 71045; 80053; 81001; 82550; 82553; 82803; 83735; 84100; 84132; 84134; 84478; 84484; 85025; 85610; 85730; 87040; 87070; 87077; 87186; 87205; 87502; 87651; 93005; 94640; 96365; 96367; 97116; 97162; 99285; A4216; A4217; A4222; B4189; G9035; J0713; J1650; J1815; J1885; J2920; J2930; J3475; J3480; J7030; J7050

== ENCOUNTER 2023-10-09 08:27 | Observation (INO) ==
[2023-10-09 08:51] VITALS: BMI 25.8
--- NOTE | 2023-10-09 09:11 | DR.SOBA ---
HPI Time Seen Time Seen by Provider: 10/09/23 09:10 Primary Care Physician Primary Care Physician: Wyatt Kent HPI Comment HPI Comment: Cough congestion shortness of breath and runny nose with poor appetite and chest pressure since . Complaints Chief Complaint Doctors Comments: Patient is 78-year-old male in the emergency room with cough congestion runny nose chest discomfort poor appetite and weakness since . Symptoms are getting worse. Patient said cough is productive yellow sputum. Patient denies nausea vomiting diarrhea or dysuria. He also denies fever patient said appetite is poor with decreased food and fluid intake. Patient has history of COPD, hypertension and renal disease. He also have history of bone marrow cancer. Chief Complaint:: Pt daughter accompanying him; since pt has been having low oxygen at home, around 94% per pt report. Pt has been having productive cough, and feeling like he is "stiffling for breath". C/o runny nose, decreased appetite and fluid intake, sore abdomen from coughing so much. Pt denies n/v/d/constipation/dysuria COVID-19 Coronavirus risk:travel/contact w/high risk person: No Has patient experienced Coronavirus symptoms: No Source History Provided: Patient and Family Member Mode of Arrival Mode of Arrival: Ambulatory Timing Onset of Chief Complaint: 10/05/23 PMH PMH Past Medical History: Yes Past Medical History: Anxiety, Arthritis, COPD, Hypertension and Renal Disease Past Medical History Comment: A.Fib, bone marrow cancer Past Surgical History: Yes Surgical History: Cholecystectomy and Ortho Surgery Past Surgical History Comment: watchman device, prostate surgery r/t prostate ca, cataract, hernia repair Family History History of Family Medical Conditions: Yes Family Medical History: Cancer, Heart Failure and Hypertension Social History Does patient currently use any type of tobacco product: No Have you used tobacco products in the last 12 months: No Type of Tobacco Use: None Does any household member use tobacco: No Alcohol Use: None Do you use any recreational Drugs:: No Lives With: Spouse Lives Where: Home Travel Risk Coronavirus risk:travel/contact w/high risk person: No Has patient experienced Coronavirus symptoms: No Infectious screening In the last 2 months have you had wt loss of >10#?: NO Have you had fever, night sweats or hemotysis?: No Have you traveled outside the country in the last 6 months?: No Isolation: Standard ROS Review of Systems Integumentary: No Symptoms Reported; negative Rash or Juandice Hematologic/Lymphatic: No Symptoms Reported Endocrine: No Symptoms Reported and Increased Thirst; negative Increased Urine Psychiatric: No Symptoms Reported All Other Systems: Reviewed and Negative PE Vital Signs Vitals: Vital Signs Temperature 97.0 F Pulse Rate 85 Pulse Rate 85 Pulse Rate 85 Pulse Rate 87 Pulse Rate 93 Pulse Rate 96 Pulse Rate 90 Pulse Rate 90 Pulse Rate 95 Pulse Rate 85 Pulse Rate 84 Pulse Rate 78 Pulse Rate 82 Pulse Rate 90 Pulse Rate 83 Pulse Rate 90 Pulse Rate 88 Pulse Rate 88 Pulse Rate 88 Pulse Rate 90 Pulse Rate 83 Pulse Rate 89 Pulse Rate 86 Pulse Rate 94 Pulse Rate 89 Respiratory Rate 18 Blood Pressure 156/90 Blood Pressure 147/94 Blood Pressure 147/94 Blood Pressure 147/94 Blood Pressure 133/85 Blood Pressure 101/70 O2 Sat by Pulse Oximetry 98 O2 Sat by Pulse Oximetry 99 O2 Sat by Pulse Oximetry 100 O2 Sat by Pulse Oximetry 98 O2 Sat by Pulse Oximetry 98 O2 Sat by Pulse Oximetry 100 O2 Sat by Pulse Oximetry 99 O2 Sat by Pulse Oximetry 99 O2 Sat by Pulse Oximetry 99 O2 Sat by Pulse Oximetry 99 O2 Sat by Pulse Oximetry 97 O2 Sat by Pulse Oximetry 98 O2 Sat by Pulse Oximetry 98 O2 Sat by Pulse Oximetry 99 O2 Sat by Pulse Oximetry 97 O2 Sat by Pulse Oximetry 98 O2 Sat by Pulse Oximetry 98 O2 Sat by Pulse Oximetry 97 O2 Sat by Pulse Oximetry 97 O2 Sat by Pulse Oximetry 96 O2 Sat by Pulse Oximetry 98 O2 Sat by Pulse Oximetry 98 O2 Sat by Pulse Oximetry 98 O2 Sat by Pulse Oximetry 97 O2 Sat by Pulse Oximetry 96 ROR Labs Reviewed 10/09/23 13:08 10/09/23 13:08 Laboratory: WBC 11.2 X10^3/uL (3.6-10.0) H 10/09/23 13:08 RBC 4.91 X10^6/uL (4.7-6.0) 10/09/23 13:08 Hgb 13.7 g/dL (13.5-18.0) 10/09/23 13:08 Hct 42.3 % (42.0-54.0) 10/09/23 13:08 MCV 86.2 fL (80.0-100.0) 10/09/23 13:08 MCH 27.9 pg (27.0-34.0) 10/09/23 13:08 MCHC 32.4 g/dL (33.0-35.0) L 10/09/23 13:08 RDW 16.0 % (11.6-16.5) 10/09/23 13:08 Plt Count 192 X10^3/uL (150.0-450.0) 10/09/23 13:08 MPV 6.8 fL (7.4-11.0) L 10/09/23 13:08 Neut % (Auto) 47.2 % (42.0-75.0) 10/09/23 13:08 Lymph % (Auto) 46.7 % (21.0-51.0) 10/09/23 13:08 [place] % (Auto) 4.5 % (0.0-13.0) 10/09/23 13:08 Eos % (Auto) 1.2 % (0.9-2.9) 10/09/23 13:08 Baso % (Auto) 0.4 % (0.2-1.0) 10/09/23 13:08 Neut # (Auto) 5.3 x10^3/uL (2.2-4.8) H 10/09/23 13:08 Lymph # (Auto) 5.2 X10^3/uL (1.3-2.9) H 10/09/23 13:08 [place] # (Auto) 0.5 x10^3/uL (0.3-0.8) 10/09/23 13:08 Eos # (Auto) 0.1 x10^3/uL (0.0-0.2) 10/09/23 13:08 Baso # (Auto) 0.0 X10^3/uL (0.0-0.1) 10/09/23 13:08 Absolute Nucleated RBC 0.1 /100WBC 10/09/23 13:08 Sample Site Rra 10/09/23 13:30 ABG pH 7.450 (7.35-7.45) 10/09/23 13:30 ABG pCO2 32.0 mmHg (35.0-45.0) L 10/09/23 13:30 ABG pO2 76.0 mmHg (80.0-100.0) L 10/09/23 13:30 ABG HCO3 22.2 mmol/L (22-26) 10/09/23 13:30 ABG O2 Saturation 96.0 % (90-100) 10/09/23 13:30 ABG Base Excess -1.1 mmol/L (-2.0-2.0) 10/09/23 13:30 Geoff Test Pos 10/09/23 13:30 A-a Gradient 34.0 mmHg 10/09/23 13:30 FiO2 21.0 10/09/23 13:30 Blood Gas Comments Pt nyla well eb 10/09/23 13:30 Sodium 143 mmol/L (136-145) 10/09/23 13:08 Corrected Sodium TNP 10/09/23 13:08 Potassium 4.6 mmol/L (3.5-5.1) 10/09/23 13:08 Chloride 108 mmol/L (98-107) H 10/09/23 13:08 Carbon Dioxide 30.3 mmol/L (21-32) 10/09/23 13:08 BUN 14 mg/dL (7-18) 10/09/23 13:08 Creatinine 1.24 mg/dL (0.70-1.30) 10/09/23 13:08 Est GFR (MDRD) Af Amer > 60 (>60) 10/09/23 13:08 Est GFR (MDRD) Non-Af 60 (>60) 10/09/23 13:08 Glucose 88 mg/dL (65-99) 10/09/23 13:08 Lactic Acid 0.9 mmol/L (0.4-2.0) 10/09/23 08:54 Calcium 8.7 mg/dL (8.5-10.1) 10/09/23 13:08 Corrected Calcium TNP 10/09/23 13:08 Total Bilirubin 0.70 mg/dL (0.2-1.0) 10/09/23 13:08 AST 15 Units/L (15-37) 10/09/23 13:08 ALT 12 Units/L (12-78) 10/09/23 13:08 Alkaline Phosphatase 63 Units/L (46-116) 10/09/23 13:08 Creatine Kinase 64 Units/L (39-308) 10/09/23 08:54 Troponin I High Sens 24.3 ng/L (4.0-60.0) 10/09/23 08:54 B-Natriuretic Peptide 1370 pg/mL (0-79) H 10/09/23 08:54 Total Protein 7.4 g/dL (6.4-8.2) 10/09/23 13:08 Albumin 3.4 g/dL (3.4-5.0) 10/09/23 13:08 Globulin 4.0 g/dL (2.5-4.5) 10/09/23 13:08 Albumin/Globulin Ratio 0.9 Ratio (1.1-2.1) L 10/09/23 13:08 Specimen Type Clean catch urine 10/09/23 10:14 Urine Color Yellow (YELLOW) 10/09/23 10:14 Urine Appearance Clear (CLEAR) 10/09/23 10:14 Urine pH 6.0 (5.0 - 8.0) 10/09/23 10:14 Ur Specific [place] 1.015 (1.000-1.030) 10/09/23 10:14 Urine Protein 3+ (NEGATIVE) 10/09/23 10:14 Urine Glucose (UA) Negative (NEGATIVE) 10/09/23 10:14 Urine Ketones Negative (NEGATIVE) 10/09/23 10:14 Urine Blood 2+ (NEGATIVE) 10/09/23 10:14 Urine Nitrite Negative (NEGATIVE) 10/09/23 10:14 Urine Bilirubin Negative (NEGATIVE) 10/09/23 10:14 Urine Urobilinogen Normal (NORMAL) 10/09/23 10:14 Ur Leukocyte Esterase Negative (NEGATIVE) 10/09/23 10:14 Urine RBC 3-5 /HPF (0-3) A 10/09/23 10:14 Urine WBC None seen /HPF (0-5) 10/09/23 10:14 Ur Squamous Epith Cells Rare /HPF (NEGATIVE) 10/09/23 10:14 Urine Bacteria Negative /HPF (NEGATIVE) 10/09/23 10:14 Urine Mucus Rare /HPF (NEGATIVE) 10/09/23 10:14 Ur Culture Indicated? No/not indicated 10/09/23 10:14 Opioid Opioid Risk Tool Age (Nicho box if 16-45): No History of Preadolescent Sexual Abuse: No Total: 0 Total Score Risk Category: Low Risk Copyright: Dean SANTIZO predicting aberrant behaviors Discharge Plan Diagnosis Discharge Problem: Pneumonia, SOB (shortness of breath), Lung mass, CHF (congestive heart failure) Discharge Plan Patient Disposition: 01 HOME, SELF-CARE Condition: Stable Prescriptions: No Action quetiapine 25 mg tablet 25 - 50 mg PO QPM carvedilol 12.5 mg tablet 12.5 mg PO BID hydrocodone-acetaminophen 10-325 mg tablet 1 tab PO BID PRN cyanocobalamin (vitamin B-12) 1,000 mcg/mL solution 1,000 mcg IM WEEKLY amlodipine-olmesartan 5-40 mg tablet 1 tab PO QDAY Health Concerns: Post Hospitalization: new medications and changes needed to prevent readmission or further decline. Pt educated and given instructions on all concerns. Plan of Treatment: Continue with present treatment and follow up plan. Pt is to keep follow up appointment as instructed and take medications as ordered. Orders to Discharge Patient Discharge Orders: Transfer (Routine); Ordered 10/09/23 Ordered By: BRADLY HALE Follow ups/Referrals Follow ups/Referrals: WYATT KENT [Primary Care Provider] - 3 days Instructions Stand Alone Forms: Post Hospital Follow Up Care
[2023-10-09 09:31] LABS: BASOPHILS % (AUTO) 0.2 % (0.2-1.0); EOSINOPHILS # (AUTO) 0.1 x10^3/uL (0.0-0.2); EOSINOPHILS % (AUTO) 1.2 % (0.9-2.9); HEMATOCRIT 43.4 % (42.0-54.0); HEMOGLOBIN 14.2 g/dL (13.5-18.0); LYMPHOCYTES # (AUTO) 5.1 X10^3/uL (1.3-2.9); LYMPHOCYTES % (AUTO) 45.2 % (21.0-51.0); MEAN CORPUSCULAR HEMOGLOBIN 28.1 pg (27.0-34.0); MEAN CORPUSCULAR HGB CONC 32.7 g/dL (33.0-35.0); MEAN CORPUSCULAR VOLUME 86.1 fL (80.0-100.0); MONOCYTES # (AUTO) 0.6 x10^3/uL (0.3-0.8); NEUTROPHILS # (AUTO) 5.4 x10^3/uL (2.2-4.8); NEUTROPHILS % (AUTO) 48.4 % (42.0-75.0); PLATELET COUNT 192 X10^3/uL (150.0-450.0); RED BLOOD COUNT 5.03 X10^6/uL (4.7-6.0); RED CELL DISTRIBUTION WIDTH 16.1 % (11.6-16.5); WHITE BLOOD COUNT 11.3 X10^3/uL (3.6-10.0)
[2023-10-09 09:45] LABS: ALANINE AMINOTRANSFERASE 10 Units/L (12-78); ALBUMIN 3.5 g/dL (3.4-5.0); ALKALINE PHOSPHATASE 70 Units/L (46-116); ASPARTATE AMINO TRANSFERASE 16 Units/L (15-37); BLOOD UREA NITROGEN 15 mg/dL (7-18); CALCIUM 8.9 mg/dL (8.5-10.1); CARBON DIOXIDE 29.1 mmol/L (21-32); CHLORIDE 108 mmol/L (98-107); CREATINE KINASE 64 Units/L (39-308); CREATININE 1.21 mg/dL (0.70-1.30); GLUCOSE 99 mg/dL (65-99); SODIUM 142 mmol/L (136-145); TOTAL PROTEIN 7.8 g/dL (6.4-8.2); eGFR NON BLACK RACES > 60 (>60)
--- NOTE | 2023-10-09 09:48 | RAD ---
EXAM: CHEST, 1 VIEW HISTORY: COUGH, SOB; COMPARISON: No relevant prior studies were available for comparison at the time of interpretation. TECHNIQUE: CHEST, 1 VIEW FINDINGS: Chest: Lines and tubes: None Mediastinum: There is a right perihilar masslike consolidation measuring 5.2 x 3.4 cm. Cardiac shado w is within normal limits for size. Pulmonary vessels: No pulmonary vascular congestion. Lung roach: No suspicious airspace opacity. Pleura: No effusion. No pneumothorax. Bones and soft tissues: No acute osseous or soft tissue abnormality. IMPRESSION: 1. Right perihilar masslike consolidation is suspicious for neoplasm. Recommend CT chest with contra st for further characterization. THIS IS AN ELECTRONICALLY VERIFIED FINAL REPORT 10/09/2023 9:46 AM - Electronically signed by Rashid العلي MD
--- NOTE | 2023-10-09 10:00 | EKG ---
Test Reason : chest pain Blood Pressure : */* mmHG Vent. Rate : 90 BPM Atrial Rate : * BPM P-R Int : * ms QRS Dur : 90 ms QT Int : 350 ms P-R-T Axes : * 38 191 degrees QTc Int : 428 ms Atrial fibrillation Cannot rule out Anterior infarct , age undetermined Abnormal ECG No previous ECGs available Confirmed by Chay Trimble MD ([id number]) on 10/09/2023 2:36:28 PM Referred By: Confirmed By: Chay Trimble MD
[2023-10-09 10:24] LABS: BILIRUBIN,URINE NEGATIVE (NEGATIVE); BLOOD/HEMOGLOBIN,URINE 2+ (NEGATIVE); GLUCOSE, URINE NEGATIVE (NEGATIVE); KETONES,URINE NEGATIVE (NEGATIVE); LEUKOCYTE ESTERASE ,URINE NEGATIVE (NEGATIVE); NITRITES,URINE NEGATIVE (NEGATIVE); PROTEIN,URINE 3+ (NEGATIVE); UROBILINOGEN,URINE NORMAL (NORMAL)
[2023-10-09 10:25] LABS: APPEARANCE,URINE CLEAR (CLEAR); COLOR,URINE YELLOW (YELLOW)
[2023-10-09 10:35] LABS: BACTERIA,URINE NEGATIVE /HPF (NEGATIVE); SQUAMOUS EPITHELIAL CELL,UR RARE /HPF (NEGATIVE)
[2023-10-09] MEDS: ROCEPHIN VIAL 1 GRAM IVP SCH (10:46)
--- NOTE | 2023-10-09 12:21 | CT ---
EXAM:CTA, CHESTHISTORY:Shortness of breath, lung massTECHNIQUE:Axial postcontrast images with coronal and sagittal reformats. Three-dimensional maximum intensity projection images were obtained and evaluated. Dose reduction techniques were used with MA/kv adjusted for body size.COMPARISON:NoneFINDINGS:There is no evidence for acute pulmonary thromboembolic disease. 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 Examination of the mediastinum demonstrates an irregular abnormal right hilar mass measuring a proximally 6.7 x 3.2 by 4.6 cm the mass appears to occlude the right upper lobe bronchus. And narrows the right upper lobe pulmonary arterial branch. Findings should be considered primary malignant hilar neoplasm until proven otherwise. Multiple but nonenlarged mediastinal nodes are present in the AP window, retrocaval pretracheal area, pre carinal region and some enlarged nodes in the subcarinal region likely metastatic in origin. Anterior upper mediastinal adenopathy identified. There is dilatation of the ascending thoracic aorta maximum AP diameter 4.3 cm, maximum transverse diameter 4.2 cm. No pleural effusions are identified. No chest wall or axillary abnormality is identified. Those portions of the upper abdominal organs are within normal limits with the exception of bilateral nonobstructing upper pole renal calculi. Examination of the lung roach demonstrates some pleural-parenchymal scarring and subsegmental atelectasis in the right upper lobe. No acute pulmonary infiltrates are identified. There is diffuse peribronchial thickening consistent with bronchitis which could be acute, chronic, or both. There is a 6 mm right apical pulmonary nodule visible on CT series 11, image 26 and 6.4 mm pulmonary nodule in the left upper lobe visible on CT series 11, image 32. Metastatic disease not excluded.IMPRESSION:No evidence for acute pulmonary thromboembolic disease6.7 x 3.2 x 4.6 cm irregular right hilar mass lesion as described in detail above which which should be considered primary pulmonary neoplasm until proven otherwiseMediastinal lymphadenopathy likely metastatic in origin. This could be confirmed or excluded with PET-CTBilateral upper lobe pulmonary nodules as described above possibly metastatic lesionsDiffuse peribronchial thickening suggestive of bronchitis which could be acute, chronic, or bothDilatation of the proximal ascending aorta maximum AP diameter 4.3 cm maximum transverse diameter 4.2 cmTHIS IS AN ELECTRONICALLY VERIFIED FINAL REPORT10/09/2023 12:18 PM - Electronically signed by Yoni Lee MD
--- NOTE | 2023-10-09 12:31 | CT ---
EXAM:ABDCMEN/PELVIS WITH CONHISTORY:Abdominal distentionTECHNIQUE:Axial postcontrast images with coronal and sagittal reformats. Dose reduction procedures were used with mA/kv adjusted for body size.COMPARISON:NoneFINDINGS:Lung bases are free of acute infiltrates. 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 There is a 3.1 x 1.9 x 1.3 cm right-sided epicardial lymph node possibly metastatic in origin. The liver, spleen, adrenal glands, and pancreas are within normal limits. Patient is status post cholecystectomy. Kidneys are unobstructed and without masses. Bilateral nonobstructing renal calculi are present. There is a right renal cyst present. No ureteral calculi identified. Appendix not identified with absolute certainty. No secondary signs of appendicitis present. Abdominal aorta is mildly ectatic and not significantly dilated. Diffuse calcific atherosclerotic changes present. There is some thrombus present in the area of the bifurcation. No intraperitoneal or retroperitoneal lymphadenopathy is identified. There are no findings suggestive of enteritis, colitis, or diverticulitis. Diffuse diverticulosis of the descending and sigmoid colon identified. No pelvic masses, pelvic fluid, or pelvic lymphadenopathy is identified. No bladder abnormalities identified. Prostatic seed implants are present. No lytic or blastic skeletal lesions of significance are identified.IMPRESSION:No acute intra-abdominal or intrapelvic abnormality identifiedNo definite evidence for intra-abdominal or pelvic metastatic diseaseBilateral nonobstructing renal calculiEnlarged right-sided epicardial lymph node possibly metastatic in origin.THIS IS AN ELECTRONICALLY VERIFIED FINAL REPORT10/09/2023 12:28 PM - Electronically signed by Yoni Lee MD
[2023-10-09] MEDS: TORADOL 60 MG VIAL IM ONE (13:02)
[2023-10-09 13:18] LABS: BASOPHILS % (AUTO) 0.4 % (0.2-1.0); EOSINOPHILS # (AUTO) 0.1 x10^3/uL (0.0-0.2); EOSINOPHILS % (AUTO) 1.2 % (0.9-2.9); HEMATOCRIT 42.3 % (42.0-54.0); HEMOGLOBIN 13.7 g/dL (13.5-18.0); LYMPHOCYTES # (AUTO) 5.2 X10^3/uL (1.3-2.9); LYMPHOCYTES % (AUTO) 46.7 % (21.0-51.0); MEAN CORPUSCULAR HEMOGLOBIN 27.9 pg (27.0-34.0); MEAN CORPUSCULAR HGB CONC 32.4 g/dL (33.0-35.0); MEAN CORPUSCULAR VOLUME 86.2 fL (80.0-100.0); MEAN PLATELET VOLUME 6.8 fL (7.4-11.0); MONOCYTES # (AUTO) 0.5 x10^3/uL (0.3-0.8); MONOCYTES % (AUTO) 4.5 % (0.0-13.0); NEUTROPHILS # (AUTO) 5.3 x10^3/uL (2.2-4.8); NEUTROPHILS % (AUTO) 47.2 % (42.0-75.0); PLATELET COUNT 192 X10^3/uL (150.0-450.0); RED BLOOD COUNT 4.91 X10^6/uL (4.7-6.0); WHITE BLOOD COUNT 11.2 X10^3/uL (3.6-10.0)
[2023-10-09 13:29] LABS: ALANINE AMINOTRANSFERASE 12 Units/L (12-78); ALBUMIN 3.4 g/dL (3.4-5.0); ALKALINE PHOSPHATASE 63 Units/L (46-116); ASPARTATE AMINO TRANSFERASE 15 Units/L (15-37); BLOOD UREA NITROGEN 14 mg/dL (7-18); CALCIUM 8.7 mg/dL (8.5-10.1); CARBON DIOXIDE 30.3 mmol/L (21-32); CHLORIDE 108 mmol/L (98-107); CREATININE 1.24 mg/dL (0.70-1.30); GLUCOSE 88 mg/dL (65-99); POTASSIUM 4.6 mmol/L (3.5-5.1); SODIUM 143 mmol/L (136-145); TOTAL PROTEIN 7.4 g/dL (6.4-8.2); eGFR NON BLACK RACES 60 (>60)
[2023-10-09 13:34] LABS: ABG ALLEN TEST POS; ABG BASE EXCESS -1.1 mmol/L (-2.0-2.0); ABG HCO3 22.2 mmol/L (22-26)
[2023-10-09] MEDS: FORTAZ or TAZICEF VIAL INJ 1 G in NS 100 ML IV 100 ML IV SCH (15:08)
[2023-10-09] MEDS: OMNIPAQUE 350 mg/mL 100 mL BTL 100 ML ONE (15:14)
[2023-10-09] MEDS ORDERED: LOVENOX INJ 40 MG SYR SC SCH (16:00)
[2023-10-09] MEDS: ZITHROMAX INJ 500 MG VIAL 500 MG in D5W 250 ML IV 250 ML IV SCH (16:12)
[2023-10-09] MEDS ORDERED: DUONEB 0.5 MG/3 MG (3 mL) NEB SCH (17:00)
[2023-10-09] MEDS: DUONEB 0.5 MG/3 MG (3 mL) NEB SCH (17:07)
[2023-10-09] MEDS: FLONASE NASAL SPRAY ENOSTRIL PRN (17:13)
[2023-10-09] MEDS: ROBITUSSIN DM PO SCH (17:14)
[2023-10-09] MEDS: FLOMAX PO SCH (17:50)
[2023-10-09] MEDS: BENICAR PO SCH (17:50)
[2023-10-09] MEDS: NORVASC TAB 5 MG PO SCH (17:50)
[2023-10-09] MEDS ORDERED: PULMICORT NEB TX 0.5 MG NEB ONE (19:08)
[2023-10-09] MEDS: LASIX IVP ONE (19:31)
[2023-10-09] MEDS: PULMICORT NEB TX 0.5 MG NEB SCH (20:17)
[2023-10-09] MEDS: NS 250 ML IV 250 ML IV PRN (20:44)
[2023-10-09] MEDS: SEROquel TAB 25 mg PO SCH (20:45)
[2023-10-09] MEDS: COREG TAB 12.5 MG PO SCH (20:45)
[2023-10-09] MEDS: NORCO 10/325 TAB PO PRN (20:46)
[2023-10-09] MEDS ORDERED: PULMICORT NEB TX 0.5 MG NEB SCH (21:00)
[2023-10-10 05:08] LABS: BASOPHILS # (AUTO) 0.1 X10^3/uL (0.0-0.1); BASOPHILS % (AUTO) 0.5 % (0.2-1.0); EOSINOPHILS # (AUTO) 0.2 x10^3/uL (0.0-0.2); EOSINOPHILS % (AUTO) 1.5 % (0.9-2.9); HEMATOCRIT 40.5 % (42.0-54.0); HEMOGLOBIN 13.1 g/dL (13.5-18.0); LYMPHOCYTES # (AUTO) 7.4 X10^3/uL (1.3-2.9); MEAN CORPUSCULAR HGB CONC 32.5 g/dL (33.0-35.0); MEAN CORPUSCULAR VOLUME 86.1 fL (80.0-100.0); MEAN PLATELET VOLUME 6.9 fL (7.4-11.0); MONOCYTES # (AUTO) 0.7 x10^3/uL (0.3-0.8); MONOCYTES % (AUTO) 5.2 % (0.0-13.0); NEUTROPHILS # (AUTO) 5.1 x10^3/uL (2.2-4.8); NEUTROPHILS % (AUTO) 37.8 % (42.0-75.0); PLATELET COUNT 173 X10^3/uL (150.0-450.0); RED CELL DISTRIBUTION WIDTH 15.8 % (11.6-16.5); WHITE BLOOD COUNT 13.4 X10^3/uL (3.6-10.0)
[2023-10-10 05:21] LABS: ALANINE AMINOTRANSFERASE 8 Units/L (12-78); ALKALINE PHOSPHATASE 62 Units/L (46-116); ASPARTATE AMINO TRANSFERASE 13 Units/L (15-37); BLOOD UREA NITROGEN 17 mg/dL (7-18); CALCIUM 8.2 mg/dL (8.5-10.1); CARBON DIOXIDE 27.3 mmol/L (21-32); CHLORIDE 108 mmol/L (98-107); CREATININE 1.31 mg/dL (0.70-1.30); GLUCOSE 89 mg/dL (65-99); MAGNESIUM 1.5 mg/dL (2.0-2.9); POTASSIUM 3.7 mmol/L (3.5-5.1); SODIUM 142 mmol/L (136-145); TOTAL PROTEIN 6.8 g/dL (6.4-8.2); eGFR NON BLACK RACES 56 (>60)
[2023-10-10] MEDS ORDERED: CONSULT PHARMACY - POTASSIUM & MAGNESIUM XX SCH (07:00)
[2023-10-10] MEDS: VSL#3 PROBIOTIC CAP 112.5 B PO SCH (09:00)
[2023-10-10] MEDS: MAG-OX TAB PO SCH (09:00)
[2023-10-10] MEDS: K-DUR TAB 20 MEQ PO SCH (09:00)
--- NOTE | 2023-10-10 09:34 | DR.H&P ---
H&P History & Physical for Day of: H&P Date: 10/09/23 Chief Complaint Chief Complaint: Hypoxia with a stifling feeling for breathing along with productive cough and sore abdomen. Allergies Allergies Allergy/AdvReac Type Severity Reaction Status Date / Time apixaban [From Eliquis] Allergy Verified 10/09/23 08:28 History of Present Illness History of Present Illness: This is a pleasant 78-year-old white male with a history of bone marrow cancer who is being followed by kersey department supervisor/oncologist Dr. Coburn. The patient reports over the last 4 to 5 days he has become more short of breath and is having increased dyspnea along with runny nose, decreased appetite, decreased fluid intake, sore abdomen from the excessive coughing. He also complains of chest congestion, weakness since last which was 5 days ago. He states that his symptoms are getting worse and is now coughing up yellow sputum. He denies nausea and vomiting diarrhea and dysuria. He is exp laining that he has decreased appetite and decreased fluid intake as well. The patient does have a history of COPD, hypertension and chronic kidney disease. He also tells me that he has had a right hilar mass that Dr. Coburn has been following for some time now. He gets routine PET scans and CT scans of his lungs. Unfortunately, today, our CT scan shows that the right hilar mass is irregularly shaped, and the CT scan shows increased numbers of lymph nodes scattered throughout the lungs that are consistent with metastatic cancer. The radiologist reading the reports suspects that the right hilar mass is a primary lung neoplasm with metastasis. CT scan also shows bilateral upper lobe pulmona ry nodules that are possibly metastatic as well. He also has diffuse peribronchial thickening suggestive of bronchitis which could be acute, chronic or both. He also has dilatation of the proximal ascending aorta with a diameter 4.3 cm and there is no evidence for acute pulmonary thrombus both embolic disease. The right hilar mass is 6.7 x 3.2 x 4.6 cm and is irregularly shaped. There is mediastinal lymphadenopathy which is likely metastatic in origin and the radiologist has recommended a PET scan. Maximum transverse diameter of 4.2 cm. I also see that he has elevated BNP and on exam he has diffuse coarse breath sounds anteriorly and posteriorly. He does take Lasix at home as needed. He states that he does get intermittent bilateral lower extremity edema around his feet and ankles. I will go ahead and proceed and give him Lasix IV 40 mg today and order echocardiogram for tomorrow. Will also repeat daily chest x- rays and treat him with IV Levaquin and Fortaz for his bronchitis. Will repeat chest x-ray in the morning to make sure that we do not see a developing pneumonia. Past Medical History Past Medical History: Anxiety, Arthritis, COPD, Hypertension and Renal Disease Additional Medical History: ATRIAL FIBRILLATION Past Surgical History Surgical History: Appendectomy, Cholecystectomy and Ortho Surgery Family History Family Medical History: Cancer (Bone marrow cancer), Heart Failure and Hypertens ion Social History Does patient currently use any type of tobacco product: No Have you used tobacco products in the last 12 months: No Type of Tobacco Use: None Does any household member use tobacco: No Alcohol Use: None Drug Use: None Medications Home Medications: Home Medications Medication Instructions Recorded Confirmed Type amlodipine 5 mg-olmesartan 40 mg 1 tab PO QDAY 10/09/23 10/09/23 History tablet carvedilol 12.5 mg tablet 12.5 mg PO BID 10/09/23 10/09/23 History cyanocobalamin (vitamin B-12) 1,000 mcg IM MONTHLY 10/09/23 10/09/23 History 1,000 mcg/mL injection solution hydrocodone 10 mg-acetaminophen 1 tab PO BID PRN 10/09/23 10/09/23 History 325 mg tablet quetiapine 25 mg tablet 50 mg PO QPM 10/09/23 10/09/23 History tamsulosin 0.4 mg capsule 0.4 mg PO QDAY 10/09/23 10/09/23 History Labs 10/10/23 04:35 10/10/23 04:35 Labs: Laboratory WBC 13.4 X10^3/uL (3.6-10.0) H 10/10/23 04:35 RBC 4.70 X10^6/uL (4.7-6.0) 10/10/23 04:35 Hgb 13.1 g/dL (13.5-18.0) L 10/10/23 04:35 Hct 40.5 % (42.0-54.0) L 10/10/23 04:35 MCV 86.1 fL (80.0-100.0) 10/10/23 04:35 MCH 28.0 pg (27.0-34.0) 10/10/23 04:35 MCHC 32.5 g/dL (33.0-35.0) L 10/10/23 04:35 RDW 15.8 % (11.6-16.5) 10/10/23 04:35 Plt Count 173 X10^3/uL (150.0-450.0) 10/10/23 04:35 MPV 6.9 fL (7.4-11.0) L 10/10/23 04:35 Neut % (Auto) 37.8 % (42.0-75.0) L 10/10/23 04:35 Lymph % (Auto) 55.0 % (21.0-51.0) H 10/10/23 04:35 [place] % (Auto) 5.2 % (0.0-13.0) 10/10/23 04:35 Eos % (Auto) 1.5 % (0.9-2.9) 10/10/23 04:35 Baso % (Auto) 0.5 % (0.2-1.0) 10/10/23 04:35 Neut # (Auto) 5.1 x10^3/uL (2.2-4.8) H 10/10/23 04:35 Lymph # (Auto) 7.4 X10^3/uL (1.3-2.9) H 10/10/23 04:35 [place] # (Auto) 0.7 x10^3/uL (0.3-0.8) 10/10/23 04:35 Eos # (Auto) 0.2 x10^3/uL (0.0-0.2) 10/10/23 04:35 Baso # (Auto) 0.1 X10^3/uL (0.0-0.1) 10/10/23 04:35 Absolute Nucleated RBC 0.1 /100WBC 10/10/23 04:35 Sample Site Rra 10/09/23 13:30 ABG pH 7.450 (7.35-7.45) 10/09/23 13:30 ABG pCO2 32.0 mmHg (35.0-45.0) L 10/09/23 13:30 ABG pO2 76.0 mmHg (80.0-100.0) L 10/09/23 13:30 ABG HCO3 22.2 mmol/L (22-26) 10/09/23 13:30 ABG O2 Saturation 96.0 % (90-100) 10/09/23 13:30 ABG Base Excess -1.1 mmol/L (-2.0-2.0) 10/09/23 13:30 Geoff Test Pos 10/09/23 13:30 A-a Gradient 34.0 mmHg 10/09/23 13:30 FiO2 21.0 10/09/23 13:30 Blood Gas Comments Pt nyla well eb 10/09/23 13:30 Sodium 142 mmol/L (136-145) 10/10/23 04:35 Corrected Sodium TNP 10/10/23 04:35 Potassium 3.7 mmol/L (3.5-5.1) 10/10/23 04:35 Chloride 108 mmol/L (98-107) H 10/10/23 04:35 Carbon Dioxide 27.3 mmol/L (21-32) 10/10/23 04:35 BUN 17 mg/dL (7-18) 10/10/23 04:35 Creatinine 1.31 mg/dL (0.70-1.30) H 10/10/23 04:35 Est GFR (MDRD) Af Amer > 60 (>60) 10/10/23 04:35 Est GFR (MDRD) Non-Af 56 (>60) L 10/10/23 04:35 Glucose 89 mg/dL (65-99) 10/10/23 04:35 Lactic Acid 0.9 mmol/L (0.4-2.0) 10/09/23 08:54 Calcium 8.2 mg/dL (8.5-10.1) L 10/10/23 04:35 Corrected Calcium 9.0 mg/dL (8.5-10.1) 10/10/23 04:35 Magnesium 1.5 mg/dL (2.0-2.9) L 10/10/23 04:35 Total Bilirubin 0.40 mg/dL (0.2-1.0) 10/10/23 04:35 AST 13 Units/L (15-37) L 10/10/23 04:35 ALT 8 Units/L (12-78) L 10/10/23 04:35 Alkaline Phosphatase 62 Units/L (46-116) 10/10/23 04:35 Creatine Kinase 64 Units/L (39-308) 10/09/23 08:54 Troponin I High Sens 24.3 ng/L (4.0-60.0) 10/09/23 08:54 B-Natriuretic Peptide 696 pg/mL (0-79) H 10/10/23 04:35 Total Protein 6.8 g/dL (6.4-8.2) 10/10/23 04:35 Albumin 3.0 g/dL (3.4-5.0) L 10/10/23 04:35 Globulin 3.8 g/dL (2.5-4.5) 10/10/23 04:35 Albumin/Globulin Ratio 0.8 Ratio (1.1-2.1) L 10/10/23 04:35 Specimen Type Clean catch urine 10/09/23 10:14 Urine Color Yellow (YELLOW) 10/09/23 10:14 Urine Appearance Clear (CLEAR) 10/09/23 10:14 Urine pH 6.0 (5.0 - 8.0) 10/09/23 10:14 Ur Specific [place] 1.015 (1.000-1.030) 10/09/23 10:14 Urine Protein 3+ (NEGATIVE) 10/09/23 10:14 Urine Glucose (UA) Negative (NEGATIVE) 10/09/23 10:14 Urine Ketones Negative (NEGATIVE) 10/09/23 10:14 Urine Blood 2+ (NEGATIVE) 10/09/23 10:14 Urine Nitrite Negative (NEGATIVE) 10/09/23 10:14 Urine Bilirubin Negative (NEGATIVE) 10/09/23 10:14 Urine Urobilinogen Normal (NORMAL) 10/09/23 10:14 Ur Leukocyte Esterase Negative (NEGATIVE) 10/09/23 10:14 Urine RBC 3-5 /HPF (0-3) A 10/09/23 10:14 Urine WBC None seen /HPF (0-5) 10/09/23 10:14 Ur Squamous Epith Cells Rare /HPF (NEGATIVE) 10/09/23 10:14 Urine Bacteria Negative /HPF (NEGATIVE) 10/09/23 10:14 Urine Mucus Rare /HPF (NEGATIVE) 10/09/23 10:14 Ur Culture Indicated? No/not indicated 10/09/23 10:14 Review of Systems Constitutional: Weakness and Malaise Eyes: No Symptoms Reported ENT: Nose Discharge and Nose Congestion Respiratory: Cough, Shortness of Breath, SOB with Excertion and Sputum Cardiovascular: Orthopnea Gastrointestinal: No Symptoms Reported Genitourinary: No Symptoms Reported Musculoskeletal: No Symptoms Reported Skin: No Symptoms Reported Neurological: No Symptoms Reported Physical Exam Vital Signs: Vital Signs Pulse Rate 95 Pulse Rate 82 Pulse Rate 71 Pulse Rate 77 Respiratory Rate 20 Respiratory Rate 17 Respiratory Rate 16 Respiratory Rate 20 Blood Pressure 137/82 Blood Pressure 104/71 Blood Pressure 90/57 Blood Pressure 97/63 O2 Sat by Pulse Oximetry 99 O2 Sat by Pulse Oximetry 97 O2 Sat by Pulse Oximetry 97 O2 Sat by Pulse Oximetry 97 Oriented: Normal, Time, Person and Place Eyes: Normal Ear: Normal Nose: Discharge Throat: Normal Respiratory: Rhonchi Throughout Cardiovascular: Normal : Normal Auscultation: Bowel Sounds: Normal Palpation: Normal Tenderness: Normal Skin: Normal Musculoskeletal: Normal Psychiatric: Normal Mood Description: Calm Affect: Normal Speech Pattern: Clear and Appropriate Assessment/Plan (1) Lung mass: Status: Acute Plan: The patient is followed by kersey department supervisor/oncologist Dr. Coburn. Upon the patient's discharge from the hospital after we get his bronchitis treated and get him feeling better. 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 (2) CHF (congestive heart failure): Status: Acute Plan: IV Lasix and follow daily BMPs and daily chest x-rays (3) Bronchitis: Status: Acute Plan: IV Levaquin and IV Fortaz. Follow daily chest x-rays until improvement. (4) COPD (chronic obstructive pulmonary disease): Status: Acute Plan: IV antibiotics and I will add steroids if the patient's hypoxia is not improving with IV diuresis with Lasix (5) Chronic kidney disease, stage 3a: Status: Acute Plan: Monitor daily BUN and creatinine levels. Patient has only very mild chronic kidney disease. (6) Anxiety: Status: Acute Plan: If the patient becomes anxious I will start him on Valium as needed. (7) Arthritis: Status: Acute Plan: Pain control if needed Review H&P Reviewed: Yes Patient was examined?: Yes
--- NOTE | 2023-10-10 09:39 | PCM.PROG ---
Progress Note Progress Note for Day of Date of Exam: 10/10/23 Subjective Subjective: The patient states he is feeling much better this morning. He is breathing much better and is not having as much shortness of breath or dyspnea. His BNP is down from 1370 and is 696 this morning. He diuresed very well and Pedialyte through the night after receiving the Lasix 40 mg IV x 1 yesterday. The patient is to go for echocardiogram later this morning and after he has an echocardiogram done we will give him another 40 mg of IV Lasix and see how he is does with that. The patient's chest x-ray is not back yet and I will review that with the report as of later this morning. His O2 sat is 95% on 2 L and his blood pressure stable at 137/82 today. Will continue with current treatment since he is improving and hopefully we can get him discharged home over the next couple of days. Past Medical Family Social History Changes in Past Med/Fam/Surg Hx: Patient reports a history of a right hilar mass. Allergies: Allergies apixaban [From Eliquis] Allergy (Verified 10/09/23 08:28) Review of Systems ROS: No change since H&P Vital Signs and I&O's Vital Signs: Vital Signs Pulse Rate 85 Pulse Rate 95 Pulse Rate 82 Pulse Rate 71 Pulse Rate 77 Respiratory Rate 20 Respiratory Rate 17 Respiratory Rate 16 Respiratory Rate 20 Blood Pressure 137/82 Blood Pressure 104/71 Blood Pressure 90/57 Blood Pressure 97/63 O2 Sat by Pulse Oximetry 98 O2 Sat by Pulse Oximetry 99 O2 Sat by Pulse Oximetry 97 O2 Sat by Pulse Oximetry 97 O2 Sat by Pulse Oximetry 97 Intake and Output: Intake & Output 10/07/23 10/08/23 10/09/23 10/10/23 11:59 11:59 11:59 11:59 Intake Total 428 / 428 Output Total 1500 / 1500 Balance -1072 / -1072 Physical Exam Oriented: Normal, Time, Person and Place Eyes: Normal Ear: Normal Nose: Discharge Throat: Normal Respiratory: Generalized and Diminished Cardiovascular: Normal : Normal Auscultation: Bowel Sounds: Normal Tenderness: Normal Skin: Normal Musculoskeletal: Normal Psychiatric: Normal Mood Description: Calm Affect: Normal Speech Pattern: Clear and Appropriate Laboratory and Diagnostics 10/10/23 04:35 10/10/23 04:35 Labs: Laboratory WBC 13.4 X10^3/uL (3.6-10.0) H 10/10/23 04:35 RBC 4.70 X10^6/uL (4.7-6.0) 10/10/23 04:35 Hgb 13.1 g/dL (13.5-18.0) L 10/10/23 04:35 Hct 40.5 % (42.0-54.0) L 10/10/23 04:35 MCV 86.1 fL (80.0-100.0) 10/10/23 04:35 MCH 28.0 pg (27.0-34.0) 10/10/23 04:35 MCHC 32.5 g/dL (33.0-35.0) L 10/10/23 04:35 RDW 15.8 % (11.6-16.5) 10/10/23 04:35 Plt Count 173 X10^3/uL (150.0-450.0) 10/10/23 04:35 MPV 6.9 fL (7.4-11.0) L 10/10/23 04:35 Neut % (Auto) 37.8 % (42.0-75.0) L 10/10/23 04:35 Lymph % (Auto) 55.0 % (21.0-51.0) H 10/10/23 04:35 [place] % (Auto) 5.2 % (0.0-13.0) 10/10/23 04:35 Eos % (Auto) 1.5 % (0.9-2.9) 10/10/23 04:35 Baso % (Auto) 0.5 % (0.2-1.0) 10/10/23 04:35 Neut # (Auto) 5.1 x10^3/uL (2.2-4.8) H 10/10/23 04:35 Lymph # (Auto) 7.4 X10^3/uL (1.3-2.9) H 10/10/23 04:35 [place] # (Auto) 0.7 x10^3/uL (0.3-0.8) 10/10/23 04:35 Eos # (Auto) 0.2 x10^3/uL (0.0-0.2) 10/10/23 04:35 Baso # (Auto) 0.1 X10^3/uL (0.0-0.1) 10/10/23 04:35 Absolute Nucleated RBC 0.1 /100WBC 10/10/23 04:35 Sample Site Rra 10/09/23 13:30 ABG pH 7.450 (7.35-7.45) 10/09/23 13:30 ABG pCO2 32.0 mmHg (35.0-45.0) L 10/09/23 13:30 ABG pO2 76.0 mmHg (80.0-100.0) L 10/09/23 13:30 ABG HCO3 22.2 mmol/L (22-26) 10/09/23 13:30 ABG O2 Saturation 96.0 % (90-100) 10/09/23 13:30 ABG Base Excess -1.1 mmol/L (-2.0-2.0) 10/09/23 13:30 Geoff Test Pos 10/09/23 13:30 A-a Gradient 34.0 mmHg 10/09/23 13:30 FiO2 21.0 10/09/23 13:30 Blood Gas Comments Pt nyla well eb 10/09/23 13:30 Sodium 142 mmol/L (136-145) 10/10/23 04:35 Corrected Sodium TNP 10/10/23 04:35 Potassium 3.7 mmol/L (3.5-5.1) 10/10/23 04:35 Chloride 108 mmol/L (98-107) H 10/10/23 04:35 Carbon Dioxide 27.3 mmol/L (21-32) 10/10/23 04:35 BUN 17 mg/dL (7-18) 10/10/23 04:35 Creatinine 1.31 mg/dL (0.70-1.30) H 10/10/23 04:35 Est GFR (MDRD) Af Amer > 60 (>60) 10/10/23 04:35 Est GFR (MDRD) Non-Af 56 (>60) L 10/10/23 04:35 Glucose 89 mg/dL (65-99) 10/10/23 04:35 Lactic Acid 0.9 mmol/L (0.4-2.0) 10/09/23 08:54 Calcium 8.2 mg/dL (8.5-10.1) L 10/10/23 04:35 Corrected Calcium 9.0 mg/dL (8.5-10.1) 10/10/23 04:35 Magnesium 1.5 mg/dL (2.0-2.9) L 10/10/23 04:35 Total Bilirubin 0.40 mg/dL (0.2-1.0) 10/10/23 04:35 AST 13 Units/L (15-37) L 10/10/23 04:35 ALT 8 Units/L (12-78) L 10/10/23 04:35 Alkaline Phosphatase 62 Units/L (46-116) 10/10/23 04:35 Creatine Kinase 64 Units/L (39-308) 10/09/23 08:54 Troponin I High Sens 24.3 ng/L (4.0-60.0) 10/09/23 08:54 B-Natriuretic Peptide 696 pg/mL (0-79) H 10/10/23 04:35 Total Protein 6.8 g/dL (6.4-8.2) 10/10/23 04:35 Albumin 3.0 g/dL (3.4-5.0) L 10/10/23 04:35 Globulin 3.8 g/dL (2.5-4.5) 10/10/23 04:35 Albumin/Globulin Ratio 0.8 Ratio (1.1-2.1) L 10/10/23 04:35 Specimen Type Clean catch urine 10/09/23 10:14 Urine Color Yellow (YELLOW) 10/09/23 10:14 Urine Appearance Clear (CLEAR) 10/09/23 10:14 Urine pH 6.0 (5.0 - 8.0) 10/09/23 10:14 Ur Specific [place] 1.015 (1.000-1.030) 10/09/23 10:14 Urine Protein 3+ (NEGATIVE) 10/09/23 10:14 Urine Glucose (UA) Negative (NEGATIVE) 10/09/23 10:14 Urine Ketones Negative (NEGATIVE) 10/09/23 10:14 Urine Blood 2+ (NEGATIVE) 10/09/23 10:14 Urine Nitrite Negative (NEGATIVE) 10/09/23 10:14 Urine Bilirubin Negative (NEGATIVE) 10/09/23 10:14 Urine Urobilinogen Normal (NORMAL) 10/09/23 10:14 Ur Leukocyte Esterase Negative (NEGATIVE) 10/09/23 10:14 Urine RBC 3-5 /HPF (0-3) A 10/09/23 10:14 Urine WBC None seen /HPF (0-5) 10/09/23 10:14 Ur Squamous Epith Cells Rare /HPF (NEGATIVE) 10/09/23 10:14 Urine Bacteria Negative /HPF (NEGATIVE) 10/09/23 10:14 Urine Mucus Rare /HPF (NEGATIVE) 10/09/23 10:14 Ur Culture Indicated? No/not indicated 10/09/23 10:14 Plan (1) Lung mass: Status: Acute Plan: The patient is followed by production expert/oncologist Dr. Coburn. Upon the patient's discharge from the hospital after we get his bronchitis treated and get him feeling better. 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 (2) CHF (congestive heart failure): Status: Acute Narrative Support Text: The patient's BNP is decreasing and his dyspnea has improved tremendously. He is having less shortness of breath now. Plan: IV Lasix 40 mg IV after the patient has his echocardiogram done later today. I will follow daily BMPs and daily chest x-rays (3) Bronchitis: Status: Acute Plan: IV Levaquin and IV Fortaz. Follow daily chest x-rays until improvement. (4) COPD (chronic obstructive pulmonary disease): Status: Acute Plan: IV antibiotics and I will add steroids if the patient's hypoxia is not improving with IV diuresis with Lasix (5) Chronic kidney disease, stage 3a: Status: Acute Plan: Monitor daily BUN and creatinine levels. Patient has only very mild chronic kidney disease. (6) Anxiety: Status: Acute Plan: If the patient becomes anxious I will start him on Valium as needed. (7) Arthritis: Status: Acute Plan: Pain control if needed
--- NOTE | 2023-10-10 11:03 | RAD ---
EXAM:CHEST, 1 VIEWHISTORY:PNEUMONIA ;COMPARISON:None available.FINDINGS:The trachea is midline. The cardiac silhouette is enlarged with a tortuous thoracic aorta. Persistent right suprahilar spiculated mass is observed. Left hemithorax appears clear. The bony thorax is unremarkable.IMPRESSION:Suprahilar mass on the right without focal consolidation identified. Stable radiograph.THIS IS AN ELECTRONICALLY VERIFIED FINAL REPORT10/10/2023 11:00 AM - Electronically signed by Kevin Brunson MD
[2023-10-10] MEDS: LASIX IVP ONE (11:52)
[2023-10-11 05:19] LABS: BASOPHILS # (AUTO) 0.1 X10^3/uL (0.0-0.1); BASOPHILS % (AUTO) 0.5 % (0.2-1.0); EOSINOPHILS # (AUTO) 0.2 x10^3/uL (0.0-0.2); EOSINOPHILS % (AUTO) 1.3 % (0.9-2.9); HEMATOCRIT 40.9 % (42.0-54.0); HEMOGLOBIN 13.2 g/dL (13.5-18.0); LYMPHOCYTES % (AUTO) 58.4 % (21.0-51.0); MEAN CORPUSCULAR HEMOGLOBIN 27.9 pg (27.0-34.0); MEAN CORPUSCULAR HGB CONC 32.3 g/dL (33.0-35.0); MEAN CORPUSCULAR VOLUME 86.3 fL (80.0-100.0); MEAN PLATELET VOLUME 7.2 fL (7.4-11.0); MONOCYTES # (AUTO) 0.6 x10^3/uL (0.3-0.8); MONOCYTES % (AUTO) 4.6 % (0.0-13.0); NEUTROPHILS # (AUTO) 4.8 x10^3/uL (2.2-4.8); NEUTROPHILS % (AUTO) 35.2 % (42.0-75.0); PLATELET COUNT 187 X10^3/uL (150.0-450.0); RED BLOOD COUNT 4.74 X10^6/uL (4.7-6.0); RED CELL DISTRIBUTION WIDTH 15.8 % (11.6-16.5); WHITE BLOOD COUNT 13.6 X10^3/uL (3.6-10.0)
[2023-10-11 05:35] LABS: ALANINE AMINOTRANSFERASE 12 Units/L (12-78); ALKALINE PHOSPHATASE 63 Units/L (46-116); ASPARTATE AMINO TRANSFERASE 13 Units/L (15-37); BLOOD UREA NITROGEN 19 mg/dL (7-18); CALCIUM 8.3 mg/dL (8.5-10.1); CHLORIDE 104 mmol/L (98-107); COR CA(FOR HYPOALB) 9.1 mg/dL (8.5-10.1); CREATININE 1.43 mg/dL (0.70-1.30); GLUCOSE 87 mg/dL (65-99); MAGNESIUM 1.8 mg/dL (2.0-2.9); POTASSIUM 3.9 mmol/L (3.5-5.1); SODIUM 140 mmol/L (136-145); TOTAL PROTEIN 6.8 g/dL (6.4-8.2); eGFR NON BLACK RACES 51 (>60)
--- NOTE | 2023-10-11 05:42 | RAD ---
EXAM: CHEST, 1 VIEW HISTORY: SHORTNESS OF BREATH; COPD, HTN, RENAL DISEASE, AFIB, BONE MARROW CANCER SX: ROS, ORTHO, WATCHMAN DE VICE, HERNIA REPAIR, PROSTATE COMPARISON: 10/10/2023 FINDINGS: The cardiomediastinal silhouette is stable. Similar right hilar mass. No acute airspace disease. Nonspecific opacities overlying the left chest which may be external to p atient. No pneumothorax or effusion. No acute osseous abnormality. IMPRESSION: No acute cardiopulmonary disease. Similar right hilar mass. THIS IS AN ELECTRONICALLY VERIFIED FINAL REPORT 10/11/2023 5:38 AM - Electronically signed by Yoni Lee MD
[2023-10-11] MEDS ORDERED: CONSULT PHARMACY - POTASSIUM & MAGNESIUM XX SCH (06:00)
[2023-10-11] MEDS ORDERED: D5W 250 ML IV 250 ML IV ONE (08:31)
[2023-10-11 10:09] VITALS: BP 108/60; PULSE 91; RESP 15; O2SAT 96
[2023-10-11] MEDS: MAG-OX TAB PO SCH (11:23)
[2023-10-11] MEDS: ZITHROMAX TAB 250 MG PO ONE (11:23)
[2023-10-11 11:59] VITALS: TEMP 98.6
--- NOTE | 2023-10-12 11:30 | PCM.DCPLAN ---
DISCHARGE SUMMARY Admission Date Date of Admission: 10/09/23 Discharge Date Discharge Date: 10/12/23 Admission Diagnoses (1) Lung mass: Status: Acute (2) CHF (congestive heart failure): Status: Acute (3) Bronchitis: Status: Acute (4) COPD (chronic obstructive pulmonary disease): Status: Acute (5) Chronic kidney disease, stage 3a: Status: Acute (6) Anxiety: Status: Acute (7) Arthritis: Status: Acute Discharge Diagnoses Discharge Diagnosis: 1. Bronchitis 2. Mild CHF exacerbation with ejection fraction 55 to 60% 3. Chronic kidney disease stage IIIa 4. COPD 5. Right hilar mass with mediastinal lymphadenopathy and upper lobe pulmonary nodules that appear metastatic in origin 6. Dilatation of the ascending aorta at 4.5 cm without evidence of thrombosis or embolism 7. Chronic bilateral lower extremity edema 8. History of anxiety 9. History of arthritis Discharge Medications Discharge Medications: Home Medication List carvedilol 12.5 mg tablet 12.5 mg PO BID 10/09/23 [History] cyanocobalamin (vitamin B-12) 1,000 mcg/mL injection solution 1,000 mcg IM MONTHLY 10/09/23 [History] hydrocodone 10 mg-acetaminophen 325 mg tablet 1 tab PO BID PRN 10/09/23 [History] quetiapine 25 mg tablet 50 mg PO QPM 10/09/23 [History] tamsulosin 0.4 mg capsule 0.4 mg PO QDAY 10/09/23 [History] cefpodoxime 200 mg tablet 200 mg PO BID 7 days #14 tabs 10/11/23 [Rx] levofloxacin 500 mg tablet 500 mg PO QDAY 7 days #7 tabs 10/11/23 [Rx] losartan 50 mg tablet 50 mg PO QDAY 30 days #30 tabs 10/11/23 [Rx] Prescriptions: cefpodoxime Micheal Hagan levofloxacin Bentley,Micheal losartan Bentley,Micheal Hospital Course Latest Lab Results: Laboratory Last Values WBC 13.6 X10^3/uL (3.6-10.0) H 10/11/23 04:55 RBC 4.74 X10^6/uL (4.7-6.0) 10/11/23 04:55 Hgb 13.2 g/dL (13.5-18.0) L 10/11/23 04:55 Hct 40.9 % (42.0-54.0) L 10/11/23 04:55 MCV 86.3 fL (80.0-100.0) 10/11/23 04:55 MCH 27.9 pg (27.0-34.0) 10/11/23 04:55 MCHC 32.3 g/dL (33.0-35.0) L 10/11/23 04:55 RDW 15.8 % (11.6-16.5) 10/11/23 04:55 Plt Count 187 X10^3/uL (150.0-450.0) 10/11/23 04:55 MPV 7.2 fL (7.4-11.0) L 10/11/23 04:55 Neut % (Auto) 35.2 % (42.0-75.0) L 10/11/23 04:55 Lymph % (Auto) 58.4 % (21.0-51.0) H 10/11/23 04:55 [place] % (Auto) 4.6 % (0.0-13.0) 10/11/23 04:55 Eos % (Auto) 1.3 % (0.9-2.9) 10/11/23 04:55 Baso % (Auto) 0.5 % (0.2-1.0) 10/11/23 04:55 Neut # (Auto) 4.8 x10^3/uL (2.2-4.8) 10/11/23 04:55 Lymph # (Auto) 8.0 X10^3/uL (1.3-2.9) H 10/11/23 04:55 [place] # (Auto) 0.6 x10^3/uL (0.3-0.8) 10/11/23 04:55 Eos # (Auto) 0.2 x10^3/uL (0.0-0.2) 10/11/23 04:55 Baso # (Auto) 0.1 X10^3/uL (0.0-0.1) 10/11/23 04:55 Absolute Nucleated RBC 0.0 /100WBC 10/11/23 04:55 Sample Site Rra 10/09/23 13:30 ABG pH 7.450 (7.35-7.45) 10/09/23 13:30 ABG pCO2 32.0 mmHg (35.0-45.0) L 10/09/23 13:30 ABG pO2 76.0 mmHg (80.0-100.0) L 10/09/23 13:30 ABG HCO3 22.2 mmol/L (22-26) 10/09/23 13:30 ABG O2 Saturation 96.0 % (90-100) 10/09/23 13:30 ABG Base Excess -1.1 mmol/L (-2.0-2.0) 10/09/23 13:30 Geoff Test Pos 10/09/23 13:30 A-a Gradient 34.0 mmHg 10/09/23 13:30 FiO2 21.0 10/09/23 13:30 Blood Gas Comments Pt nyla well eb 10/09/23 13:30 Sodium 140 mmol/L (136-145) 10/11/23 04:55 Corrected Sodium TNP 10/11/23 04:55 Potassium 3.9 mmol/L (3.5-5.1) 10/11/23 04:55 Chloride 104 mmol/L (98-107) 10/11/23 04:55 Carbon Dioxide 32.0 mmol/L (21-32) 10/11/23 04:55 BUN 19 mg/dL (7-18) H 10/11/23 04:55 Creatinine 1.43 mg/dL (0.70-1.30) H 10/11/23 04:55 Est GFR (MDRD) Af Amer > 60 (>60) 10/11/23 04:55 Est GFR (MDRD) Non-Af 51 (>60) L 10/11/23 04:55 Glucose 87 mg/dL (65-99) 10/11/23 04:55 Lactic Acid 0.9 mmol/L (0.4-2.0) 10/09/23 08:54 Calcium 8.3 mg/dL (8.5-10.1) L 10/11/23 04:55 Corrected Calcium 9.1 mg/dL (8.5-10.1) 10/11/23 04:55 Magnesium 1.8 mg/dL (2.0-2.9) L 10/11/23 04:55 Total Bilirubin 0.40 mg/dL (0.2-1.0) 10/11/23 04:55 AST 13 Units/L (15-37) L 10/11/23 04:55 ALT 12 Units/L (12-78) 10/11/23 04:55 Alkaline Phosphatase 63 Units/L (46-116) 10/11/23 04:55 Creatine Kinase 64 Units/L (39-308) 10/09/23 08:54 Troponin I High Sens 24.3 ng/L (4.0-60.0) 10/09/23 08:54 B-Natriuretic Peptide 696 pg/mL (0-79) H 10/10/23 04:35 Total Protein 6.8 g/dL (6.4-8.2) 10/11/23 04:55 Albumin 3.0 g/dL (3.4-5.0) L 10/11/23 04:55 Globulin 3.8 g/dL (2.5-4.5) 10/11/23 04:55 Albumin/Globulin Ratio 0.8 Ratio (1.1-2.1) L 10/11/23 04:55 Specimen Type Clean catch urine 10/09/23 10:14 Urine Color Yellow (YELLOW) 10/09/23 10:14 Urine Appearance Clear (CLEAR) 10/09/23 10:14 Urine pH 6.0 (5.0 - 8.0) 10/09/23 10:14 Ur Specific [place] 1.015 (1.000-1.030) 10/09/23 10:14 Urine Protein 3+ (NEGATIVE) 10/09/23 10:14 Urine Glucose (UA) Negative (NEGATIVE) 10/09/23 10:14 Urine Ketones Negative (NEGATIVE) 10/09/23 10:14 Urine Blood 2+ (NEGATIVE) 10/09/23 10:14 Urine Nitrite Negative (NEGATIVE) 10/09/23 10:14 Urine Bilirubin Negative (NEGATIVE) 10/09/23 10:14 Urine Urobilinogen Normal (NORMAL) 10/09/23 10:14 Ur Leukocyte Esterase Negative (NEGATIVE) 10/09/23 10:14 Urine RBC 3-5 /HPF (0-3) A 10/09/23 10:14 Urine WBC None seen /HPF (0-5) 10/09/23 10:14 Ur Squamous Epith Cells Rare /HPF (NEGATIVE) 10/09/23 10:14 Urine Bacteria Negative /HPF (NEGATIVE) 10/09/23 10:14 Urine Mucus Rare /HPF (NEGATIVE) 10/09/23 10:14 Ur Culture Indicated? No/not indicated 10/09/23 10:14 Resp Viral Panel (PCR) See scanned report 10/09/23 14:36 Hospital Course: This is a pleasant 78-year-old white male with a history of bone marrow cancer who is being followed by insole channeler/oncologist Dr. Coburn. The patient reports over the last 4 to 5 days he has become more short of breath and is having increased dyspnea along with runny nose, decreased appetite, decreased fluid intake, sore abdomen from the excessive coughing. He also complains of chest congestion, weakness since last which was 5 days ago. He states that his symptoms are getting worse and is now coughing up yellow sputum. He denies nausea and vomiting diarrhea and dysuria. He is explaining that he has decreased appetite and decreased fluid intake as well. The patient does have a history of COPD, hypertension and chronic kidney disease. He also tells me that he has had a right hilar mass that Dr. Coburn has been following for some time now. He gets routine PET scans and CT scans of his lungs. Unfortunately, today, our CT scan shows that the right hilar mass is irregularly shaped, and the CT scan shows increased numbers of lymph nodes scattered throughout the lungs that are consistent with metastatic cancer. The radiologist reading the reports suspects that the right hilar mass is a primary lung neoplasm with metastasis. CT scan also shows bilateral upper lobe pulmonary nodules that are possibly metastatic as well. He also has diffuse peribronchial thickening suggestive of bronchitis which could be acute, chronic or both. He also has dilatation of the proximal ascending aorta with a diameter 4.3 cm and there is no evidence for acute pulmonary thrombus or embolic disease. The right hilar mass is 6.7 x 3.2 x 4.6 cm and is irregularly shaped. There is mediastinal lymphadenopathy which is likely metastatic in origin and the radiologist has recommended a PET scan. Maximum transverse diameter is 4.2 cm. I also see that he has elevated BNP and on exam and he has diffuse coarse breath sounds anteriorly and posteriorly. He does take Lasix at home as needed. He states that he does get intermittent bilateral lower extremity edema around his feet and ankles. I will go ahead and proceed and give him Lasix IV 40 mg today and order echocardiogram for tomorrow. Will also repeat daily chest x-rays and treat him with IV Levaquin and Fortaz for his bronchitis. Will repeat chest x- ray in the morning to make sure that we do not see a developing pneumonia. On the following day the patient states he is feeling much better this morning. He is breathing much better and is not having as much shortness of breath or dyspnea. His BNP is down from 1370 and is 696 this morning. He diuresed very well and diuresed through the night after receiving the Lasix 40 mg IV x 1 yest erday. The patient is to go for echocardiogram later this morning and after he has an echocardiogram done we will give him another 40 mg of IV Lasix and see how he is does with that. The patient's chest x-ray is not back yet and I will review that with the report as of later this morning. His O2 sat is 95% on 2 L and his blood pressure stable at 137/82 today. Will continue with current treatment since he is improving and hopefully we can get him discharged home over the next couple of days. The patient is echocardiogram showed that his ejection fraction was 55 to 60% and has normal global wall motion of his heart. I told him when he goes home to start taking the Lasix 40 mg in the morning and that he may take another 40 mg after lunch if he needs to if he is feeling short of breath or having lateral lower extremity edema. He understands this and will do that. Will also have him take an extra potassium tablet when he does take the extra Lasix in afternoon intermittently. On the following morning the patient is feeling much better and had a good night and is not having any dyspnea nor shortness of breath nor orthopnea at this time. He is ready for discharge so we will go ahead and discharge him home today. Discharge medications are listed below as well as his discharge disposition. I will have him follow-up with me in the next week for hospital follow-up as he wants to spinning frame changer to me as his primary care provider. I told him I will gladly accept him manage will have the case filler bring him the paperwork says that his granddaughter can start filling it out and return it so that we can upload the information in the computer and be ready for his hospital follow-up. The patient's family is also going to hurry up and get him an appointment scheduled with his insole channeler/oncologist Dr. Coburn so they can proceed with a new PET scan to further evaluate the right hilar mass with new onset mediastinal lymphadenopathy and possible malignant upper lobe pulmonary nodules. I am going to stop his [place] which contain olmesartan and amlodipine and a combination tablet. With his chronic bilateral lower extremity edema and dyspnea and orthopnea I feel like the amlodipine is causing him to retain too much fluid and worsen his symptoms. I told him that we will change him over to losartan as it is indicated for chronic kidney disease and olmesartan is not studies on these medications. I am also going to start him on Coreg 12.5 mg twice daily as it is also indicated for congestive heart failure which she only has a mild case but should help improve his symptoms over the next few months. I will see him at his hospital follow-up today.
== END 2023-10-11 11:45 | disposition home or self-care (01) ==
LOC: ICU 08:27 → ER 08:27 → ICU 14:29
PROVIDERS: ADMIT Family Medicine; ATTEND Family Medicine
DX: Z85.118 Personal history of other malignant neoplasm of bronchus and lung; N18.30 Chronic kidney disease, stage 3 unspecified; R06.02 Shortness of breath; R82.998 Other abnormal findings in urine; R26.2 Difficulty in walking, not elsewhere classified; J20.9 Acute bronchitis, unspecified; R91.8 Other nonspecific abnormal finding of lung field

== ENCOUNTER 2024-07-15 06:31 | Inpatient (IN) ==
[2024-07-15] MEDS: CARDIZEM INJ 50 MG VIAL IVP ONE ×2 (06:47→10:01)
[2024-07-15 06:59] LABS: BASOPHILS # (AUTO) 0.1 X10^3/uL (0.0-0.1); BASOPHILS % (AUTO) 0.6 % (0.2-1.0); EOSINOPHILS % (AUTO) 0.1 % (0.9-2.9); HEMATOCRIT 41.5 % (42.0-54.0); HEMOGLOBIN 13.6 g/dL (13.5-18.0); LYMPHOCYTES # (AUTO) 3.9 X10^3/uL (1.3-2.9); LYMPHOCYTES % (AUTO) 25.8 % (21.0-51.0); MEAN CORPUSCULAR HEMOGLOBIN 28.9 pg (27.0-34.0); MEAN CORPUSCULAR HGB CONC 32.7 g/dL (33.0-35.0); MEAN CORPUSCULAR VOLUME 88.3 fL (80.0-100.0); MEAN PLATELET VOLUME 6.6 fL (7.4-11.0); MONOCYTES # (AUTO) 0.5 x10^3/uL (0.3-0.8); MONOCYTES % (AUTO) 3.2 % (0.0-13.0); NEUTROPHILS # (AUTO) 10.7 x10^3/uL (2.2-4.8); NEUTROPHILS % (AUTO) 70.3 % (42.0-75.0); PLATELET COUNT 211 X10^3/uL (150.0-450.0); RED CELL DISTRIBUTION WIDTH 15.2 % (11.6-16.5); WHITE BLOOD COUNT 15.3 X10^3/uL (3.6-10.0)
[2024-07-15 07:13] LABS: ALANINE AMINOTRANSFERASE 15 Units/L (12-78); ALBUMIN 3.1 g/dL (3.4-5.0); ALKALINE PHOSPHATASE 71 Units/L (46-116); ASPARTATE AMINO TRANSFERASE 14 Units/L (15-37); BLOOD UREA NITROGEN 18 mg/dL (7-18); CALCIUM 8.4 mg/dL (8.5-10.1); CARBON DIOXIDE 25.7 mmol/L (21-32); CHLORIDE 108 mmol/L (98-107); COR CA(FOR HYPOALB) 9.1 mg/dL (8.5-10.1); COR NA(FOR HYPERGLY) 143 mmol/L (136-145); CREATINE KINASE 42 Units/L (39-308); CREATININE 1.37 mg/dL (0.70-1.30); GLUCOSE 160 mg/dL (65-99); MAGNESIUM 2.2 mg/dL (2.0-2.9); POTASSIUM 4.2 mmol/L (3.5-5.1); SODIUM 142 mmol/L (136-145); TOTAL PROTEIN 7.2 g/dL (6.4-8.2); eGFR NON BLACK RACES 53 (>60)
[2024-07-15] MEDS: MAGNESIUM SULFATE 50% INJ VIAL 2 G in NS 100 ML IV 100 ML IV PRN (07:16)
--- NOTE | 2024-07-15 07:18 | DR.SOBA ---
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 Brought him to ER for evaluation . Complaints Chief Complaint Doctors Comments: shortness of breath Chief Complaint:: Patient was brought into the ER by family. Pt's family states he has been having N/V/D for the past two days. He has been getting more confused and weak lately per the family. Self Treatment fo Chief Complaint: None COVID-19 Coronavirus risk:travel/contact w/high risk person: Yes Has patient experienced Coronavirus symptoms: Yes Coronavirus symptoms experienced: Shortness of Breath Reviewed Nurses Notes Reviewed: Yes Source History Provided: Family Member Mode of Arrival Mode of Arrival: Ambulatory Timing Onset of Chief Complaint: 07/13/24 Duration Duration: Days Context Onset:: At Rest and With Light Exertion PE Risk Factors:: None History of:: COPD and CHF Currently on:: Inhaled Bronchodilators Prehospital Care:: Furosemide PMH PMH Past Medical History: Yes Past Medical History: Anxiety, Arthritis, COPD, Hypertension and Renal Disease Past Medical History Comment: Afib Past Surgical History: Yes Surgical History: Appendectomy, Cholecystectomy and Ortho Surgery Family History History of Family Medical Conditions: Yes Family Medical History: Cancer, Heart Failure and Hypertension Social History Alcohol Use: None Do you use any recreational Drugs:: No Lives With: Family Lives Where: Home Travel Risk Coronavirus risk:travel/contact w/high risk person: Yes Has patient experienced Coronavirus symptoms: Yes Coronavirus symptoms experienced: Shortness of Breath Infectious screening In the last 2 months have you had wt loss of >10#?: NO Have you had fever, night sweats or hemotysis?: No Have you traveled outside the country in the last 6 months?: No Isolation: Droplet ROS Review of Systems Constitutional: Chills, Malaise and Fatigue Eyes: No Symptoms Reported ENTM: Nose Discharge Respiratoy: Non-Productive Cough and Short of Breath Cardiovascular: Palpitations Gastrointestinal/Abdominal: Diarrhea Genitourinary: No Symptoms Reported Neurological: No Symptoms Reported Musculoskeletal: Joint Pain Integumentary: No Symptoms Reported Hematologic/Lymphatic: No Symptoms Reported Endocrine: No Symptoms Reported PE Vital Signs Vitals: Vital Signs Temperature 97.1 F Pulse Rate 101 Pulse Rate 106 Pulse Rate 98 Pulse Rate 101 Pulse Rate 105 Pulse Rate 111 Pulse Rate 107 Pulse Rate 101 Pulse Rate 100 Pulse Rate 122 Pulse Rate 120 Pulse Rate 125 Pulse Rate 122 Respiratory Rate 26 Respiratory Rate 32 Respiratory Rate 73 Respiratory Rate 34 Respiratory Rate 33 Respiratory Rate 39 Respiratory Rate 39 Respiratory Rate 32 Respiratory Rate 33 Respiratory Rate 43 Respiratory Rate 28 Respiratory Rate 22 Blood Pressure 160/97 Blood Pressure 171/102 Blood Pressure 185/141 Blood Pressure 179/126 Blood Pressure 170/105 Blood Pressure 198/107 Blood Pressure 194/114 O2 Sat by Pulse Oximetry 89 O2 Sat by Pulse Oximetry 90 O2 Sat by Pulse Oximetry 90 O2 Sat by Pulse Oximetry 91 O2 Sat by Pulse Oximetry 89 O2 Sat by Pulse Oximetry 89 O2 Sat by Pulse Oximetry 89 O2 Sat by Pulse Oximetry 85 O2 Sat by Pulse Oximetry 89 O2 Sat by Pulse Oximetry 86 O2 Sat by Pulse Oximetry 92 O2 Sat by Pulse Oximetry 92 O2 Sat by Pulse Oximetry 88 General Limitations: No Limitations General Appearance: Alert and Lethargic Head Head Exam: Normal Inspection, Atraumatic and Normocephalic Eyes Eye exam: Normal Appearance, PERRL and EOMI ENT ENT Exam: Mucous Membranes Moist Chest Chest Inspection: Normal Inspection Respiratory Respiratory Exam: Prolonged Expiratory Phase Respiratory Exam: Bilateral: Crackles Cardiovascular Cardiovascular Exam: Irregular Rhythm, +S1 and +S2 Abdominal Exam Abdominal Exam: Normal Inspection, Normal Bowel Sounds and Soft Extremities Extremities Exam: Normal Inspection and Other (minimal pitting edema ) Skin Skin Exam: Normal Color MDM Differential Diagnosis Differential Diagnosis: CHF, COPD, Mycardial Infarction, Pneumonia and Other (af ib with rapid rate ) COURSE Treatment Treatment: labs cxr ,solumederol, magnesium oxygen via venturi mask resp panel lasix guo catheter ROR Labs Reviewed Laboratory Results Reviewed?: Yes 07/15/24 06:50 07/15/24 06:50 Laboratory: WBC 15.3 X10^3/uL (3.6-10.0) H 07/15/24 06:50 RBC 4.70 X10^6/uL (4.7-6.0) 07/15/24 06:50 Hgb 13.6 g/dL (13.5-18.0) 07/15/24 06:50 Hct 41.5 % (42.0-54.0) L 07/15/24 06:50 MCV 88.3 fL (80.0-100.0) 07/15/24 06:50 MCH 28.9 pg (27.0-34.0) 07/15/24 06:50 MCHC 32.7 g/dL (33.0-35.0) L 07/15/24 06:50 RDW 15.2 % (11.6-16.5) 07/15/24 06:50 Plt Count 211 X10^3/uL (150.0-450.0) 07/15/24 06:50 MPV 6.6 fL (7.4-11.0) L 07/15/24 06:50 Neut % (Auto) 70.3 % (42.0-75.0) 07/15/24 06:50 Lymph % (Auto) 25.8 % (21.0-51.0) 07/15/24 06:50 [place] % (Auto) 3.2 % (0.0-13.0) 07/15/24 06:50 Eos % (Auto) 0.1 % (0.9-2.9) L 07/15/24 06:50 Baso % (Auto) 0.6 % (0.2-1.0) 07/15/24 06:50 Neut # (Auto) 10.7 x10^3/uL (2.2-4.8) H 07/15/24 06:50 Lymph # (Auto) 3.9 X10^3/uL (1.3-2.9) H 07/15/24 06:50 [place] # (Auto) 0.5 x10^3/uL (0.3-0.8) 07/15/24 06:50 Eos # (Auto) 0.0 x10^3/uL (0.0-0.2) 07/15/24 06:50 Baso # (Auto) 0.1 X10^3/uL (0.0-0.1) 07/15/24 06:50 Absolute Nucleated RBC 0.0 /100WBC 07/15/24 06:50 Sodium 142 mmol/L (136-145) 07/15/24 06:50 Corrected Sodium 143 mmol/L (136-145) 07/15/24 06:50 Potassium 4.2 mmol/L (3.5-5.1) 07/15/24 06:50 Chloride 108 mmol/L (98-107) H 07/15/24 06:50 Carbon Dioxide 25.7 mmol/L (21-32) 07/15/24 06:50 BUN 18 mg/dL (7-18) 07/15/24 06:50 Creatinine 1.37 mg/dL (0.70-1.30) H 07/15/24 06:50 Est GFR (MDRD) Af Amer > 60 (>60) 07/15/24 06:50 Est GFR (MDRD) Non-Af 53 (>60) L 07/15/24 06:50 Glucose 160 mg/dL (65-99) H 07/15/24 06:50 Calcium 8.4 mg/dL (8.5-10.1) L 07/15/24 06:50 Corrected Calcium 9.1 mg/dL (8.5-10.1) 07/15/24 06:50 Magnesium 2.2 mg/dL (2.0-2.9) 07/15/24 06:50 Total Bilirubin 0.80 mg/dL (0.2-1.0) 07/15/24 06:50 AST 14 Units/L (15-37) L 07/15/24 06:50 ALT 15 Units/L (12-78) 07/15/24 06:50 Alkaline Phosphatase 71 Units/L (46-116) 07/15/24 06:50 Creatine Kinase 42 Units/L (39-308) 07/15/24 06:50 Troponin I High Sens 20.5 ng/L (4.0-60.0) 07/15/24 06:50 B-Natriuretic Peptide 1910 pg/mL (0-79) H 07/15/24 06:50 Total Protein 7.2 g/dL (6.4-8.2) 07/15/24 06:50 Albumin 3.1 g/dL (3.4-5.0) L 07/15/24 06:50 Globulin 4.1 g/dL (2.5-4.5) 07/15/24 06:50 Albumin/Globulin Ratio 0.8 Ratio (1.1-2.1) L 07/15/24 06:50 Specimen Type Catherized urine 07/15/24 07:51 Urine Color Yellow (YELLOW) 07/15/24 07:51 Urine Appearance Clear (CLEAR) 07/15/24 07:51 Urine pH 6.0 (5.0 - 8.0) 07/15/24 07:51 Ur Specific [place] 1.015 (1.000-1.030) 07/15/24 07:51 Urine Protein 4+ (NEGATIVE) 07/15/24 07:51 Urine Glucose (UA) 2+ (NEGATIVE) 07/15/24 07:51 Urine Ketones 1+ (NEGATIVE) 07/15/24 07:51 Urine Blood 4+ (NEGATIVE) 07/15/24 07:51 Urine Nitrite Negative (NEGATIVE) 07/15/24 07:51 Urine Bilirubin Negative (NEGATIVE) 07/15/24 07:51 Urine Urobilinogen Normal (NORMAL) 07/15/24 07:51 Ur Leukocyte Esterase Negative (NEGATIVE) 07/15/24 07:51 SARS-CoV-2 (PCR) Negative (NEGATIVE) 07/15/24 06:37 Influenza Type A (PCR) Negative (NEGATIVE) 07/15/24 06:37 Influenza Type B (PCR) Negative (NEGATIVE) 07/15/24 06:37 RSV (PCR) Negative (NEGATIVE) 07/15/24 06:37 XRAY X-ray Results: xray infiltrate per radiology Opioid Opioid Risk Tool Age (Nicho box if 16-45): No History of Preadolescent Sexual Abuse: No Total: 0 Total Score Risk Category: Low Risk Copyright: Dean SANTIZO predicting aberrant behaviors Discharge Plan Diagnosis Discharge Problem: Acute CHF (congestive heart failure), COPD (chronic obstructive pulmonary disease), A-fib, Hypoxia Discharge Plan Patient Disposition: 09 ADMITTED INPATIENT Condition: Stable Prescriptions: No Action tamsulosin 0.4 mg capsule 0.4 mg PO QHS MDD 1 at bedtime 30 Days Qty: 30 0RF ropinirole 0.5 mg tablet 0.5 mg PO QPM Qty: 90 3RF carvedilol 12.5 mg tablet 12.5 mg PO Q12H MDD 2 90 Days Qty: 180 3RF Rx Instructions: must administer with a meal/food armodafinil 250 mg tablet 250 mg PO QAM MDD 1 30 Days Qty: 30 0RF Rx Instructions: Prescribed by Hernandez Lilly/AMADA with Dr. Cody Melgar hydrocodone-acetaminophen 10-325 mg tablet 1 tab PO BID MDD 2 tablets per 24 hours PRN (Reason: pain) 30 Days Qty: 60 0RF (DME) Home oxygen concentrator See Rx Instructions .Route .MEDSUPPLY Qty: 1 0RF Rx Instructions: As directed fluoxetine 40 mg capsule 40 mg PO QAM Qty: 90 3RF bumetanide 2 mg tablet 2 mg PO QDAY trazodone 100 mg tablet 100 mg PO QPM budesonide-formoterol [Breyna] 160-4.5 mcg/actuation HFA aerosol inhaler 1 puff INHALATION QDAY levocetirizine 5 mg tablet 5 mg PO QPM potassium chloride [K-Dur] 20 mEq Tablet,Er Particles/Crystals 20 meq PO DAILY Health Concerns: Post Hospitalization: new medications and changes needed to prevent readmission or further decline. Pt educated and given instructions on all concerns. Plan of Treatment: Continue with present treatment and follow up plan. Pt is to keep follow up appointment as instructed and take medications as ordered. Orders to Discharge Patient Discharge Orders: Transfer (Routine); Ordered 07/15/24 Ordered By: Pardeep Campos Follow ups/Referrals Follow ups/Referrals: Tyron Candelario [Primary Care Provider] - 3 days Instructions Stand Alone Forms: Find Help Web Site, Post Hospital Follow Up Care
[2024-07-15] MEDS: SOLU-Medrol 125 MG VIAL IVP ONE (07:23)
[2024-07-15] MEDS: LASIX IVP ONE ×3 (07:45→13:33)
[2024-07-15 07:59] LABS: BILIRUBIN,URINE NEGATIVE (NEGATIVE); BLOOD/HEMOGLOBIN,URINE 4+ (NEGATIVE); GLUCOSE, URINE 2+ (NEGATIVE); KETONES,URINE 1+ (NEGATIVE); LEUKOCYTE ESTERASE ,URINE NEGATIVE (NEGATIVE); NITRITES,URINE NEGATIVE (NEGATIVE); PROTEIN,URINE 4+ (NEGATIVE); UROBILINOGEN,URINE NORMAL (NORMAL)
[2024-07-15 08:03] LABS: APPEARANCE,URINE CLEAR (CLEAR); COLOR,URINE YELLOW (YELLOW)
--- NOTE | 2024-07-15 08:03 | RAD ---
EXAMINATION:CHEST, 1 VIEWHISTORY:SOB; .COMPARISON STUDY:10/11/2023TECHNIQUE:One viewFINDINGS:Mild cardiomegaly. There are bibasilar infiltrates. Follow-up to resolution recommended. Right hilar mass appears slightly increased. Previously described mediastinal lymphadenopathy is otherwise unremarkable. No pneumothorax. Bony structures are unchanged.IMPRESSION:Bibasilar infiltrates. Follow-up to resolution.Right hilar mass appears slightly increased.THIS IS AN ELECTRONICALLY VERIFIED FINAL REPORT07/15/2024 8:00 AM - Electronically signed by Eliel Rosales MD
[2024-07-15] MEDS: ROCEPHIN VIAL 1 GRAM IV ONE (08:31)
[2024-07-15] MEDS ORDERED: [UNRECOGNIZED DRUG - OTHER] IN SCH (09:10)
[2024-07-15] MEDS ORDERED: ZITHROMAX TAB 250 MG PO SCH (09:10)
[2024-07-15] MEDS ORDERED: BUDESONIDE FORMOTEROL IN SCH (09:10)
[2024-07-15] MEDS: MAGNESIUM SULFATE 50% INJ VIAL ONE (09:18)
[2024-07-15] MEDS: SOLU-Medrol 125 MG VIAL ONE (09:18)
[2024-07-15] MEDS: NS 100 ML IV 100 ML ONE (09:18)
[2024-07-15] MEDS: ROCEPHIN VIAL 1 GRAM IV SCH (09:39)
[2024-07-15] MEDS: ROCEPHIN VIAL 1 GRAM 1 G in NS 100 ML IV 100 ML IV SCH (09:52)
[2024-07-15] MEDS: COREG TAB 12.5 MG PO SCH ×2 (10:06→21:13)
[2024-07-15] MEDS: PROzac PO SCH (10:06)
--- NOTE | 2024-07-15 10:24 | DR.H&P ---
H&P History & Physical for Day of: H&P Date: 07/15/24 Chief Complaint Chief Complaint: AMS, diarrhea, SOB History of Present Illness History of Present Illness: Mr Salazar is a 78y/o male with a PMH of leukemia, Prostate/Lung cancer, CHF, CAD, HTN, Atrial fibrillation, watchman device, COPD and CKD presented with worsening SOB and confusion. He also has diarrhea. He does have home O2 but uses it as needed. He also takes Bumex as needed but has been taking it daily for the past 2 weeks due to increased leg edema. He was brought to the ER for further evaluation. He was noted to be hypoxic with elevated HR and BP. He is currently in Afib RVR. Labs showed elevated WBC, trop (-) BNP 1910. CXR showed bibasilar infiltrates and chronic right hilar mass. He was given IV lasix and IV Diltiazem. He was started on IV antibiotics and steroids. He is currently on 7L Venti mask, BP 170/88, HR between 106/120s. He was admitted to the ICU for closer monitoring and further management. He does have a guo in place. Labs/imaging reviewed: - WBC 15 Hgb 13.6 K 4.2 BUN/Cr 18/1.37 Lactic acid 1.1 Trop x 1 (-) BNP 1910 -CXR reviewed Plan: admit to ICU for closer monitoring, telemetry. Consult Cardiology. Give one more dose of Diltiazem now. Continue IV lasix. Strict I&Os, daily weights. Resume home medications. Wean O2 as tolerated, ABG stat now. Replace electrolytes prn. Stool studies. Continue IV antibiotics, nebs and IS. Will give one dose of morphine. Discussed treatment plan with patient's and daughters at bedside. All questions and concerns addressed. Monitor AM labs/imaging. Time spent for clinical assessment, reviewing labs/imaging, documentation, physical exam and decision making greater than 45 mins. Past Medical History Past Medical History: Anxiety, Arthritis, COPD, Hypertension and Renal Disease Additional Medical History: ATRIAL FIBRILLATION Past Surgical History Surgical History: Appendectomy, Cholecystectomy and Ortho Surgery Family History Family Medical History: Cancer, Heart Failure and Hypertension Social History Alcohol Use: None Medications Home Medications: Home Medications Medication Instructions Recorded Confirmed Type budesonide-formoterol HFA 160 1 puff inhalation QDAY 07/15/24 07/15/24 History mcg-4.5 mcg/actuation aerosol inhaler (Breyna) bumetanide 2 mg tablet 2 mg PO QDAY 07/15/24 07/15/24 History levocetirizine 5 mg tablet 5 mg PO QPM 07/15/24 07/15/24 History potassium chloride 20 mEq 20 meq PO DAILY 07/15/24 07/15/24 History tablet,extended release(part/cryst) trazodone 100 mg tablet 100 mg PO QPM 07/15/24 07/15/24 History Allergies Allergies Allergy/AdvReac Type Severity Reaction Status Date / Time apixaban [From Eliquis] Allergy Verified 02/15/24 12:24 Labs 07/15/24 06:50 07/15/24 06:50 Labs: Laboratory WBC 15.3 X10^3/uL (3.6-10.0) H 07/15/24 06:50 RBC 4.70 X10^6/uL (4.7-6.0) 07/15/24 06:50 Hgb 13.6 g/dL (13.5-18.0) 07/15/24 06:50 Hct 41.5 % (42.0-54.0) L 07/15/24 06:50 MCV 88.3 fL (80.0-100.0) 07/15/24 06:50 MCH 28.9 pg (27.0-34.0) 07/15/24 06:50 MCHC 32.7 g/dL (33.0-35.0) L 07/15/24 06:50 RDW 15.2 % (11.6-16.5) 07/15/24 06:50 Plt Count 211 X10^3/uL (150.0-450.0) 07/15/24 06:50 MPV 6.6 fL (7.4-11.0) L 07/15/24 06:50 Neut % (Auto) 70.3 % (42.0-75.0) 07/15/24 06:50 Lymph % (Auto) 25.8 % (21.0-51.0) 07/15/24 06:50 [place] % (Auto) 3.2 % (0.0-13.0) 07/15/24 06:50 Eos % (Auto) 0.1 % (0.9-2.9) L 07/15/24 06:50 Baso % (Auto) 0.6 % (0.2-1.0) 07/15/24 06:50 Neut # (Auto) 10.7 x10^3/uL (2.2-4.8) H 07/15/24 06:50 Lymph # (Auto) 3.9 X10^3/uL (1.3-2.9) H 07/15/24 06:50 [place] # (Auto) 0.5 x10^3/uL (0.3-0.8) 07/15/24 06:50 Eos # (Auto) 0.0 x10^3/uL (0.0-0.2) 07/15/24 06:50 Baso # (Auto) 0.1 X10^3/uL (0.0-0.1) 07/15/24 06:50 Absolute Nucleated RBC 0.0 /100WBC 07/15/24 06:50 Sodium 142 mmol/L (136-145) 07/15/24 06:50 Corrected Sodium 143 mmol/L (136-145) 07/15/24 06:50 Potassium 4.2 mmol/L (3.5-5.1) 07/15/24 06:50 Chloride 108 mmol/L (98-107) H 07/15/24 06:50 Carbon Dioxide 25.7 mmol/L (21-32) 07/15/24 06:50 BUN 18 mg/dL (7-18) 07/15/24 06:50 Creatinine 1.37 mg/dL (0.70-1.30) H 07/15/24 06:50 Est GFR (MDRD) Af Amer > 60 (>60) 07/15/24 06:50 Est GFR (MDRD) Non-Af 53 (>60) L 07/15/24 06:50 Glucose 160 mg/dL (65-99) H 07/15/24 06:50 Lactic Acid 1.1 mmol/L (0.4-2.0) 07/15/24 08:19 Calcium 8.4 mg/dL (8.5-10.1) L 07/15/24 06:50 Corrected Calcium 9.1 mg/dL (8.5-10.1) 07/15/24 06:50 Magnesium 2.2 mg/dL (2.0-2.9) 07/15/24 06:50 Total Bilirubin 0.80 mg/dL (0.2-1.0) 07/15/24 06:50 AST 14 Units/L (15-37) L 07/15/24 06:50 ALT 15 Units/L (12-78) 07/15/24 06:50 Alkaline Phosphatase 71 Units/L (46-116) 07/15/24 06:50 Creatine Kinase 42 Units/L (39-308) 07/15/24 06:50 Troponin I High Sens 20.5 ng/L (4.0-60.0) 07/15/24 06:50 B-Natriuretic Peptide 1910 pg/mL (0-79) H 07/15/24 06:50 Total Protein 7.2 g/dL (6.4-8.2) 07/15/24 06:50 Albumin 3.1 g/dL (3.4-5.0) L 07/15/24 06:50 Globulin 4.1 g/dL (2.5-4.5) 07/15/24 06:50 Albumin/Globulin Ratio 0.8 Ratio (1.1-2.1) L 07/15/24 06:50 Specimen Type Catherized urine 07/15/24 07:51 Urine Color Yellow (YELLOW) 07/15/24 07:51 Urine Appearance Clear (CLEAR) 07/15/24 07:51 Urine pH 6.0 (5.0 - 8.0) 07/15/24 07:51 Ur Specific [place] 1.015 (1.000-1.030) 07/15/24 07:51 Urine Protein 4+ (NEGATIVE) 07/15/24 07:51 Urine Glucose (UA) 2+ (NEGATIVE) 07/15/24 07:51 Urine Ketones 1+ (NEGATIVE) 07/15/24 07:51 Urine Blood 4+ (NEGATIVE) 07/15/24 07:51 Urine Nitrite Negative (NEGATIVE) 07/15/24 07:51 Urine Bilirubin Negative (NEGATIVE) 07/15/24 07:51 Urine Urobilinogen Normal (NORMAL) 07/15/24 07:51 Ur Leukocyte Esterase Negative (NEGATIVE) 07/15/24 07:51 SARS-CoV-2 (PCR) Negative (NEGATIVE) 07/15/24 06:37 Influenza Type A (PCR) Negative (NEGATIVE) 07/15/24 06:37 Influenza Type B (PCR) Negative (NEGATIVE) 07/15/24 06:37 RSV (PCR) Negative (NEGATIVE) 07/15/24 06:37 Review of Systems Constitutional: Weakness Eyes: No Symptoms Reported ENT: No Symptoms Reported Respiratory: Cough, SOB with Excertion and Wheezing Cardiovascular: Palpitations and Edema Gastrointestinal: Diarrhea Genitourinary: No Symptoms Reported Musculoskeletal: No Symptoms Reported Skin: No Symptoms Reported Neurological: Confusion Physical Exam Vital Signs: Vital Signs Temperature 98.7 F Temperature 98.7 F Temperature 97.1 F Pulse Rate [Bilateral Radial] 108 Pulse Rate 108 Pulse Rate 102 Pulse Rate 105 Pulse Rate 105 Pulse Rate 106 Pulse Rate 101 Pulse Rate 101 Pulse Rate 106 Pulse Rate 98 Pulse Rate 101 Pulse Rate 105 Pulse Rate 111 Pulse Rate 107 Pulse Rate 101 Pulse Rate 100 Pulse Rate 122 Pulse Rate 120 Pulse Rate 125 Pulse Rate 122 Respiratory Rate 27 Respiratory Rate 20 Respiratory Rate 24 Respiratory Rate 23 Respiratory Rate 24 Respiratory Rate 23 Respiratory Rate 25 Respiratory Rate 26 Respiratory Rate 32 Respiratory Rate 73 Respiratory Rate 34 Respiratory Rate 33 Respiratory Rate 39 Respiratory Rate 39 Respiratory Rate 32 Respiratory Rate 33 Respiratory Rate 43 Respiratory Rate 28 Respiratory Rate 22 Blood Pressure [Left Arm] 170/88 Blood Pressure 170/88 Blood Pressure 149/70 Blood Pressure 151/94 Blood Pressure 160/97 Blood Pressure 171/102 Blood Pressure 185/141 Blood Pressure 179/126 Blood Pressure 170/105 Blood Pressure 198/107 Blood Pressure 194/114 O2 Sat by Pulse Oximetry 91 O2 Sat by Pulse Oximetry 91 O2 Sat by Pulse Oximetry 91 O2 Sat by Pulse Oximetry 90 O2 Sat by Pulse Oximetry 90 O2 Sat by Pulse Oximetry 91 O2 Sat by Pulse Oximetry 90 O2 Sat by Pulse Oximetry 89 O2 Sat by Pulse Oximetry 90 O2 Sat by Pulse Oximetry 90 O2 Sat by Pulse Oximetry 91 O2 Sat by Pulse Oximetry 89 O2 Sat by Pulse Oximetry 89 O2 Sat by Pulse Oximetry 89 O2 Sat by Pulse Oximetry 85 O2 Sat by Pulse Oximetry 89 O2 Sat by Pulse Oximetry 86 O2 Sat by Pulse Oximetry 92 O2 Sat by Pulse Oximetry 92 O2 Sat by Pulse Oximetry 88 Oriented: Normal Eyes: Normal Nose: Normal Throat: Normal Respiratory: Rhonchi Throughout and Rales Throughout Cardiovascular: Tachycardia, Irregular and Edema Auscultation: Bowel Sounds: Normal Palpation: Normal Tenderness: Normal Musculoskeletal: Normal Psychiatric: Anxiety Mood Description: Anxious Affect: Normal Speech Pattern: Clear, Appropriate and Delayed Assessment/Plan (1) Acute CHF (congestive heart failure): Qualifiers: Heart failure type: unspecified Qualified Code(s): I50.9 - Heart failure, unspecified Status: Acute (2) Atrial fibrillation with rapid ventricular response: Status: Acute (3) Pneumonia: Qualifiers: Laterality: right Lung location: unspecified part of lung Pneumonia type: due to unspecified organism Qualified Code(s): J18.9 - Pneumonia, unspecified organism Status: Acute (4) Acute and chronic respiratory failure: Qualifiers: Respiratory failure complication: hypoxia Qualified Code(s): J96.21 - Acute and chronic respiratory failure with hypoxia Status: Acute (5) COPD (chronic obstructive pulmonary disease): Qualifiers: COPD type: unspecified COPD Qualified Code(s): J44.9 - Chronic obstructive pulmonary disease, unspecified Status: Acute (6) Metastatic lung cancer (metastasis from lung to other site): Qualifiers: Laterality: unspecified laterality Qualified Code(s): C34.90 - Malignant neoplasm of unspecified part of unspecified bronchus or lung Status: Chronic (7) Chronic kidney disease, stage 3a: Status: Chronic (8) Lung mass: Status: Chronic Review H&P Reviewed: Yes Patient was examined?: Yes
[2024-07-15] MEDS: MORPHINE SULFATE INJ 2 MG INJ IVP ONE (10:35)
[2024-07-15] MEDS: COREG TAB 12.5 MG PO NR (10:36)
[2024-07-15 10:44] LABS: ABG BASE EXCESS -1.9 mmol/L (-2.0-2.0); ABG HCO3 24.3 mmol/L (22-26)
[2024-07-15 10:45] LABS: ABG ALLEN TEST POS
[2024-07-15] MEDS: ZITHROMAX INJ 500 MG VIAL 500 MG in D5W 250 ML IV 250 ML IV SCH (11:26)
[2024-07-15] MEDS: D5W 250 ML IV 0 ML IV ONE (12:29)
[2024-07-15] MEDS ORDERED: LASIX IVP ONE (12:50)
--- NOTE | 2024-07-15 12:51 | DR.CONSULT ---
CONSULT Consultation for Day of: Date: 07/15/24 Chief Complaint Chief Complaint: afib/fast Allergies Allergies Allergy/AdvReac Type Severity Reaction Status Date / Time apixaban [From Eliquis] Allergy Verified 02/15/24 12:24 History of Present Illness History of Present Illness: 78 yo male- long hx of afib- on rate control/watchman- no cad -last stress 04/13: no ischmia- known lvh- admitted for sob/edema/altered mental status/now diarrhea- cxr: enlarging mass/B infiltrares- bnp 1900- afib rates 100-120 Past Medical History Past Medical History: Anxiety, Arthritis, COPD, Hypertension and Renal Disease Additional Medical History: ATRIAL FIBRILLATION Past Surgical History Surgical History: Appendectomy, Cholecystectomy and Ortho Surgery Family History Family Medical History: Cancer, Heart Failure and Hypertension Social History Alcohol Use: None Medications Home Medications: apixaban [From Eliquis] Allergy (Verified 02/15/24 12:24) CONTINUE taking the following medications budesonide-formoterol HFA 160 mcg-4.5 mcg/actuation aerosol inhaler (Breyna) 1 puff inhalation QDAY 07/15/24 [History] bumetanide 2 mg tablet 2 mg PO QDAY 07/15/24 [History] levocetirizine 5 mg tablet 5 mg PO QPM 07/15/24 [History] potassium chloride 20 mEq tablet,extended release(part/cryst) 20 meq PO DAILY 07/15/24 [History] trazodone 100 mg tablet 100 mg PO QPM 07/15/24 [History] Physical Exam Vital Signs: Vital Signs Temperature 98.7 F Temperature 98.7 F Temperature 98.7 F Temperature 98.7 F Temperature 97.1 F Pulse Rate [Bilateral Radial] 90 Pulse Rate [Bilateral Radial] 90 Pulse Rate [Bilateral Radial] 108 Pulse Rate 90 Pulse Rate 90 Pulse Rate 108 Pulse Rate 102 Pulse Rate 105 Pulse Rate 105 Pulse Rate 106 Pulse Rate 101 Pulse Rate 101 Pulse Rate 106 Pulse Rate 98 Pulse Rate 101 Pulse Rate 105 Pulse Rate 111 Pulse Rate 107 Pulse Rate 101 Pulse Rate 100 Pulse Rate 122 Pulse Rate 120 Pulse Rate 125 Pulse Rate 122 Respiratory Rate 27 Respiratory Rate 27 Respiratory Rate 27 Respiratory Rate 27 Respiratory Rate 27 Respiratory Rate 27 Respiratory Rate 20 Respiratory Rate 24 Respiratory Rate 23 Respiratory Rate 24 Respiratory Rate 23 Respiratory Rate 25 Respiratory Rate 26 Respiratory Rate 32 Respiratory Rate 73 Respiratory Rate 34 Respiratory Rate 33 Respiratory Rate 39 Respiratory Rate 39 Respiratory Rate 32 Respiratory Rate 33 Respiratory Rate 43 Respiratory Rate 28 Respiratory Rate 22 Blood Pressure [Left Arm] 153/80 Blood Pressure [Left Arm] 170/88 Blood Pressure [Left Arm] 170/88 Blood Pressure 153/80 Blood Pressure 170/88 Blood Pressure 170/88 Blood Pressure 149/70 Blood Pressure 151/94 Blood Pressure 160/97 Blood Pressure 171/102 Blood Pressure 185/141 Blood Pressure 179/126 Blood Pressure 170/105 Blood Pressure 198/107 Blood Pressure 194/114 O2 Sat by Pulse Oximetry 93 O2 Sat by Pulse Oximetry 93 O2 Sat by Pulse Oximetry 93 O2 Sat by Pulse Oximetry 93 O2 Sat by Pulse Oximetry 91 O2 Sat by Pulse Oximetry 91 O2 Sat by Pulse Oximetry 91 O2 Sat by Pulse Oximetry 90 O2 Sat by Pulse Oximetry 90 O2 Sat by Pulse Oximetry 91 O2 Sat by Pulse Oximetry 90 O2 Sat by Pulse Oximetry 89 O2 Sat by Pulse Oximetry 90 O2 Sat by Pulse Oximetry 90 O2 Sat by Pulse Oximetry 91 O2 Sat by Pulse Oximetry 89 O2 Sat by Pulse Oximetry 89 O2 Sat by Pulse Oximetry 89 O2 Sat by Pulse Oximetry 85 O2 Sat by Pulse Oximetry 89 O2 Sat by Pulse Oximetry 86 O2 Sat by Pulse Oximetry 92 O2 Sat by Pulse Oximetry 92 O2 Sat by Pulse Oximetry 88 sleeping with mask sats 90-94%- elevated jvd junky b lungs irregirreg kirti 1 plus edema L>R echo: mod lvh good lv labs: wbc 15.3 hct 41 tsh 1.4 k 4.2 cr 1.37 abg 7.33 46/63 Plan (1) Acute CHF (congestive heart failure): Status: Acute Qualifiers: Heart failure type: unspecified Qualified Code(s): I50.9 - Heart failure, unspecified Narrative Support Text: rate control/diuresis (2) Atrial fibrillation with rapid ventricular response: Status: Acute Narrative Support Text: chronic- needs better rate control to help chf Plan: push bb/ccb as needed (3) Pneumonia: Status: Acute Qualifiers: Laterality: right Lung location: unspecified part of lung Pneumonia type: due to unspecified organism Qualified Code(s): J18.9 - Pneumonia, unspecified organism Narrative Support Text: treat w antibiotics (4) Acute and chronic respiratory failure: Status: Acute Qualifiers: Respiratory failure complication: hypoxia Qualified Code(s): J96.21 - Acute and chronic respiratory failure with hypoxia (5) COPD (chronic obstructive pulmonary disease): Status: Acute Qualifiers: COPD type: unspecified COPD Qualified Code(s): J44.9 - Chronic obstructive pulmonary disease, unspecified (6) Metastatic lung cancer (metastasis from lung to other site): Status: Chronic Qualifiers: Laterality: unspecified laterality Qualified Code(s): C34.90 - Malignant neoplasm of unspecified part of unspecified bronchus or lung (7) Chronic kidney disease, stage 3a: Status: Chronic
[2024-07-15] MEDS ORDERED: PROVENTIL NEB TX 0.083% 2.5MG/ 3ML NEB SCH (13:00)
[2024-07-15 13:52] VITALS: BMI 25.9
[2024-07-15] MEDS: PULMICORT NEB TX 0.5 MG NEB SCH (14:09)
[2024-07-15] MEDS: XOPENEX 1.25 MG/3 ML NEBULE NEB SCH (14:09)
[2024-07-15] MEDS: NS 500 ML IV 500 ML IV ONE (16:26)
[2024-07-15] MEDS: LASIX IVP SCH (17:45)
[2024-07-15] MEDS: LOVENOX INJ 40 MG SYR SC SCH (17:46)
[2024-07-15] MEDS: VANCOMYCIN HCL 250 MG CAP PO SCH (17:50)
[2024-07-15] MEDS: REQUIP PO SCH (21:14)
[2024-07-15] MEDS: DESYREL PO SCH (21:15)
[2024-07-15] MEDS: FLOMAX PO SCH (21:16)
[2024-07-15] MEDS: MORPHINE SULFATE INJ 2 MG INJ IVP PRN (23:00)
[2024-07-16 05:37] LABS: BASOPHILS % (AUTO) 0.1 % (0.2-1.0); HEMATOCRIT 33.8 % (42.0-54.0); HEMOGLOBIN 11.2 g/dL (13.5-18.0); LYMPHOCYTES # (AUTO) 3.8 X10^3/uL (1.3-2.9); LYMPHOCYTES % (AUTO) 28.6 % (21.0-51.0); MEAN CORPUSCULAR HEMOGLOBIN 29.1 pg (27.0-34.0); MEAN CORPUSCULAR HGB CONC 33.3 g/dL (33.0-35.0); MEAN CORPUSCULAR VOLUME 87.3 fL (80.0-100.0); MEAN PLATELET VOLUME 7.4 fL (7.4-11.0); MONOCYTES # (AUTO) 0.6 x10^3/uL (0.3-0.8); MONOCYTES % (AUTO) 4.8 % (0.0-13.0); NEUTROPHILS # (AUTO) 8.7 x10^3/uL (2.2-4.8); NEUTROPHILS % (AUTO) 66.5 % (42.0-75.0); PLATELET COUNT 173 X10^3/uL (150.0-450.0); RED BLOOD COUNT 3.87 X10^6/uL (4.7-6.0); RED CELL DISTRIBUTION WIDTH 15.3 % (11.6-16.5); WHITE BLOOD COUNT 13.1 X10^3/uL (3.6-10.0)
[2024-07-16 05:53] LABS: ALBUMIN 2.4 g/dL (3.4-5.0); COR CA(FOR HYPOALB) 9.3 mg/dL (8.5-10.1); CREATININE 1.87 mg/dL (0.70-1.30); MAGNESIUM 2.5 mg/dL (2.0-2.9); POTASSIUM 4.6 mmol/L (3.5-5.1); TOTAL PROTEIN 6.4 g/dL (6.4-8.2)
--- NOTE | 2024-07-16 08:24 | NOTE.SOAP ---
Soap Note Note for Day of Date of Exam: 07/16/24 Subjective Data Subjective Data: much more with it today- no pain/sob Objective Data Objective Data: i/o only minus 175 despite lasix bp 150 p 90-100 lungs : clear edema: minimal labs: cr 1.3 to 1.87 with not much output hct 41 to 333.8 Assessment Assessment: cafib/ htn/ decreasing hct/worsening renal insufficiency Plan Plan: add low dose ccb for rate control- hold lasix for now with worsening kidney functio- watch hct
--- NOTE | 2024-07-16 09:38 | PCM.PROG ---
Progress Note Progress Note for Day of Date of Exam: 07/16/24 Subjective Subjective: Patient seen at bedside, no acute events overnight. He is feeling much better. He is currently on 5L venti mask. His HR and BP have improved. His UOP has not been good. He did not eat much yesterday, did eat better this morning. His diarrhea has stopped. AIT showed H. Influenza. Blood cultures are positive. C diff positive. He remains on PO vancomycin and IV antibiotics. Labs/imaging reviewed: - WBC 13.1 Hgb 11.2 K 4.6 BUN/Cr 31/1.87 Glucose 125 -AIT: H. Influenza -Blood Cx: positive -C diff PCR positive Plan: continue ICU monitoring, Wean O2 as tolerated. Follow cardiology recommendations. Hold lasix for now. Echo pending. Monitor UOP. Diltiazem added for rate control. Continue PO Vancomycin. Continue IV Rocephin/Azithromycin. Follow final cultures. Add pepcid. Tylenol prn. Replace electrolytes as per protocol. Continue home medications. PT/OT when tolerated. Monitor AM labs/imaging. Time spent for clinical assessment, reviewing labs/imaging, physical exam, d ecision making and documentation greater than 45 mins Past Medical Family Social History Allergies: Allergies apixaban [From Eliquis] Allergy (Verified 07/15/24 21:08) hives and knots over the body zolpidem [From Ambien] Adverse Reaction (Verified 07/15/24 21:09) CONFUSION hallucinations Vital Signs and I&O's Vital Signs: Vital Signs Temperature 99.1 F Pulse Rate 81 Respiratory Rate 13 Blood Pressure 109/61 O2 Sat by Pulse Oximetry 98 Intake and Output: Intake & Output 07/13/24 07/14/24 07/15/24 07/16/24 23:59 23:59 23:59 23:59 Intake Total 500 / 500 140 / 140 Output Total 675 / 675 50 / 50 Balance -175 / -175 90 / 90 Physical Exam Oriented: Normal Eyes: Normal Nose: Normal Throat: Normal Cardiovascular: Tachycardia, Irregular and Edema Auscultation: Bowel Sounds: Normal Palpation: Normal Tenderness: Normal Skin: Normal Musculoskeletal: Normal Psychiatric: Normal Mood Description: Calm Affect: Normal Speech Pattern: Clear and Appropriate Laboratory and Diagnostics 07/16/24 04:35 07/16/24 04:35 Labs: 07/15/24 10:20 Stool - Final Laboratory WBC 13.1 X10^3/uL (3.6-10.0) H 07/16/24 04:35 RBC 3.87 X10^6/uL (4.7-6.0) L 07/16/24 04:35 Hgb 11.2 g/dL (13.5-18.0) L D 07/16/24 04:35 Hct 33.8 % (42.0-54.0) L 07/16/24 04:35 MCV 87.3 fL (80.0-100.0) 07/16/24 04:35 MCH 29.1 pg (27.0-34.0) 07/16/24 04:35 MCHC 33.3 g/dL (33.0-35.0) 07/16/24 04:35 RDW 15.3 % (11.6-16.5) 07/16/24 04:35 Plt Count 173 X10^3/uL (150.0-450.0) 07/16/24 04:35 MPV 7.4 fL (7.4-11.0) 07/16/24 04:35 Neut % (Auto) 66.5 % (42.0-75.0) 07/16/24 04:35 Lymph % (Auto) 28.6 % (21.0-51.0) 07/16/24 04:35 [place] % (Auto) 4.8 % (0.0-13.0) 07/16/24 04:35 Eos % (Auto) 0.0 % (0.9-2.9) L 07/16/24 04:35 Baso % (Auto) 0.1 % (0.2-1.0) L 07/16/24 04:35 Neut # (Auto) 8.7 x10^3/uL (2.2-4.8) H 07/16/24 04:35 Lymph # (Auto) 3.8 X10^3/uL (1.3-2.9) H 07/16/24 04:35 [place] # (Auto) 0.6 x10^3/uL (0.3-0.8) 07/16/24 04:35 Eos # (Auto) 0.0 x10^3/uL (0.0-0.2) 07/16/24 04:35 Baso # (Auto) 0.0 X10^3/uL (0.0-0.1) 07/16/24 04:35 Absolute Nucleated RBC 0.0 /100WBC 07/16/24 04:35 Sample Site Rra 07/15/24 10:40 ABG pH 7.330 (7.35-7.45) L 07/15/24 10:40 ABG pCO2 46.0 mmHg (35.0-45.0) H 07/15/24 10:40 ABG pO2 63.0 mmHg (80.0-100.0) L 07/15/24 10:40 ABG HCO3 24.3 mmol/L (22-26) 07/15/24 10:40 ABG O2 Saturation 90.0 % (90-100) 07/15/24 10:40 ABG Base Excess -1.9 mmol/L (-2.0-2.0) 07/15/24 10:40 Geoff Test Pos 07/15/24 10:40 A-a Gradient 229.0 mmHg 07/15/24 10:40 FiO2 49.0 07/15/24 10:40 Blood Gas Comments Pt nyla well eb 07/15/24 10:40 Sodium 141 mmol/L (136-145) 07/16/24 04:35 Corrected Sodium 142 mmol/L (136-145) 07/16/24 04:35 Potassium 4.6 mmol/L (3.5-5.1) 07/16/24 04:35 Chloride 108 mmol/L (98-107) H 07/16/24 04:35 Carbon Dioxide 28.0 mmol/L (21-32) 07/16/24 04:35 BUN 31 mg/dL (7-18) H 07/16/24 04:35 Creatinine 1.87 mg/dL (0.70-1.30) H 07/16/24 04:35 Est GFR (MDRD) Af Amer 45 (>60) L 07/16/24 04:35 Est GFR (MDRD) Non-Af 37 (>60) L 07/16/24 04:35 Glucose 125 mg/dL (65-99) H 07/16/24 04:35 Lactic Acid 0.9 mmol/L (0.4-2.0) 07/15/24 10:24 Calcium 8.0 mg/dL (8.5-10.1) L 07/16/24 04:35 Corrected Calcium 9.3 mg/dL (8.5-10.1) 07/16/24 04:35 Magnesium 2.5 mg/dL (2.0-2.9) 07/16/24 04:35 Total Bilirubin 0.40 mg/dL (0.2-1.0) 07/16/24 04:35 AST 9 Units/L (15-37) L 07/16/24 04:35 ALT 13 Units/L (12-78) 07/16/24 04:35 Alkaline Phosphatase 53 Units/L (46-116) 07/16/24 04:35 Creatine Kinase 42 Units/L (39-308) 07/15/24 06:50 Troponin I High Sens 20.5 ng/L (4.0-60.0) 07/15/24 06:50 B-Natriuretic Peptide 1910 pg/mL (0-79) H 07/15/24 06:50 Total Protein 6.4 g/dL (6.4-8.2) 07/16/24 04:35 Albumin 2.4 g/dL (3.4-5.0) L 07/16/24 04:35 Globulin 4.0 g/dL (2.5-4.5) 07/16/24 04:35 Albumin/Globulin Ratio 0.6 Ratio (1.1-2.1) L 07/16/24 04:35 TSH 3rd Generation 1.420 uIU/mL (0.358-3.74) 07/15/24 06:50 Specimen Type Catherized urine 07/15/24 07:51 Urine Color Yellow (YELLOW) 07/15/24 07:51 Urine Appearance Clear (CLEAR) 07/15/24 07:51 Urine pH 6.0 (5.0 - 8.0) 07/15/24 07:51 Ur Specific [place] 1.015 (1.000-1.030) 07/15/24 07:51 Urine Protein 4+ (NEGATIVE) 07/15/24 07:51 Urine Glucose (UA) 2+ (NEGATIVE) 07/15/24 07:51 Urine Ketones 1+ (NEGATIVE) 07/15/24 07:51 Urine Blood 4+ (NEGATIVE) 07/15/24 07:51 Urine Nitrite Negative (NEGATIVE) 07/15/24 07:51 Urine Bilirubin Negative (NEGATIVE) 07/15/24 07:51 Urine Urobilinogen Normal (NORMAL) 07/15/24 07:51 Ur Leukocyte Esterase Negative (NEGATIVE) 07/15/24 07:51 Stool for White Cells Negative (NEGATIVE) 07/15/24 10:20 Stl C. diff Tox B Gene Positive (NEGATIVE) A 07/15/24 10:20 Stl C. diff [id number] Presumptive negative (NEGATIVE) 07/15/24 10:20 C. difficile Toxin A&B Negative (NEGATIVE) 07/15/24 10:20 SARS-CoV-2 (PCR) Negative (NEGATIVE) 07/15/24 06:37 Influenza Type A (PCR) Negative (NEGATIVE) 07/15/24 06:37 Influenza Type B (PCR) Negative (NEGATIVE) 07/15/24 06:37 RSV (PCR) Negative (NEGATIVE) 07/15/24 06:37 Resp Viral Panel (PCR) See scanned report 07/15/24 11:36 Plan (1) Bacteremia: Status: Acute (2) Acute CHF (congestive heart failure): Status: Acute Qualifiers: Heart failure type: unspecified Qualified Code(s): I50.9 - Heart failure, unspecified (3) Atrial fibrillation with rapid ventricular response: Status: Acute (4) C. difficile diarrhea: Status: Acute (5) OBDULIO (acute kidney injury): Status: Acute (6) Pneumonia: Status: Acute Qualifiers: Laterality: right Lung location: unspecified part of lung Pneumonia type: due to unspecified organism Qualified Code(s): J18.9 - Pneumonia, unspecified organism (7) Acute and chronic respiratory failure: Status: Acute Qualifiers: Respiratory failure complication: hypoxia Qualified Code(s): J96.21 - Acute and chronic respiratory failure with hypoxia (8) COPD (chronic obstructive pulmonary disease): Status: Acute Qualifiers: COPD type: unspecified COPD Qualified Code(s): J44.9 - Chronic obstructive pulmonary disease, unspecified (9) Metastatic lung cancer (metastasis from lung to other site): Status: Chronic Qualifiers: Laterality: unspecified laterality Qualified Code(s): C34.90 - Malignant neoplasm of unspecified part of unspecified bronchus or lung (10) Chronic kidney disease, stage 3a: Status: Chronic
[2024-07-16] MEDS: CARDIZEM TAB 30 MG PLAIN PO SCH (10:08)
[2024-07-16] MEDS: PROTONIX INJ 40 MG VIAL IVP SCH (10:08)
[2024-07-16] MEDS: PROTONIX INJ 40 MG VIAL ONE (10:09)
[2024-07-16] MEDS ORDERED: TYLENOL 325 MG TAB PO PRN (10:46)
[2024-07-16] MEDS: PEPCID 20 MG VIAL 20 MG in NS 50 ML IV 50 ML IV SCH (13:00)
[2024-07-17 05:35] LABS: BASOPHILS % (AUTO) 0.1 % (0.2-1.0); HEMATOCRIT 33.2 % (42.0-54.0); HEMOGLOBIN 11.1 g/dL (13.5-18.0); LYMPHOCYTES # (AUTO) 3.5 X10^3/uL (1.3-2.9); LYMPHOCYTES % (AUTO) 31.1 % (21.0-51.0); MEAN CORPUSCULAR HEMOGLOBIN 28.9 pg (27.0-34.0); MEAN CORPUSCULAR HGB CONC 33.4 g/dL (33.0-35.0); MEAN CORPUSCULAR VOLUME 86.7 fL (80.0-100.0); MEAN PLATELET VOLUME 7.1 fL (7.4-11.0); MONOCYTES # (AUTO) 0.5 x10^3/uL (0.3-0.8); MONOCYTES % (AUTO) 4.5 % (0.0-13.0); NEUTROPHILS # (AUTO) 7.2 x10^3/uL (2.2-4.8); NEUTROPHILS % (AUTO) 64.3 % (42.0-75.0); PLATELET COUNT 181 X10^3/uL (150.0-450.0); RED BLOOD COUNT 3.83 X10^6/uL (4.7-6.0); WHITE BLOOD COUNT 11.2 X10^3/uL (3.6-10.0)
[2024-07-17 05:46] LABS: ALBUMIN 2.2 g/dL (3.4-5.0); CALCIUM 7.7 mg/dL (8.5-10.1); CARBON DIOXIDE 26.9 mmol/L (21-32); COR CA(FOR HYPOALB) 9.1 mg/dL (8.5-10.1); CREATININE 2.08 mg/dL (0.70-1.30); POTASSIUM 4.2 mmol/L (3.5-5.1); TOTAL PROTEIN 6.2 g/dL (6.4-8.2)
--- NOTE | 2024-07-17 10:09 | PCM.PROG ---
Progress Note Progress Note for Day of Date of Exam: 07/17/24 Subjective Subjective: Patient seen at bedside, no acute events overnight. He is feeling much better. He is currently on 4L NC. He still has not been eating as much. His UOP did improve. His diarrhea has stopped. AIT showed H. Influenza. Blood cultures are positive. C diff positive. He remains on PO vancomycin and IV antibiotics. Labs/imaging reviewed: - WBC 11.2 Hgb 11.1 K 4.2 BUN/Cr 39/2.08 Glucose 113 -AIT: H. Influenza -Blood Cx: positive -C diff PCR positive Plan: continue ICU monitoring, Wean O2 as tolerated. Follow cardiology recommendations. Hold lasix for now. Will start gentle hydration with NS. Check BNP, monitor for signs of fluid overload. Echo pending. Repeat CXR. Monitor UOP. Continue Diltiazem. Continue PO Vancomycin. Continue IV Rocephin/Azithromycin. Follow final cultures. Continue pepcid. Tylenol prn. Replace electrolytes as per protocol. Continue home medications. PT/OT as tolerated. Monitor AM labs/imaging. Time spent for clinical assessment, reviewing labs/imaging, physical exam, decision making and documentation greater than 45 mins Past Medical Family Social History Allergies: Allergies apixaban [From Eliquis] Allergy (Verified 07/15/24 21:08) hives and knots over the body zolpidem [From Ambien] Adverse Reaction (Verified 07/15/24 21:09) CONFUSION hallucinations Vital Signs and I&O's Vital Signs: Vital Signs Temperature 97.8 F Temperature 97.9 F Pulse Rate 70 Pulse Rate 71 Respiratory Rate 19 Respiratory Rate 17 Blood Pressure 158/89 Blood Pressure 131/83 O2 Sat by Pulse Oximetry 95 O2 Sat by Pulse Oximetry 93 Intake and Output: Intake & Output 07/14/24 07/15/24 07/16/24 07/17/24 23:59 23:59 23:59 23:59 Intake Total 500 / 500 460 / 460 140 / 140 Output Total 675 / 675 565 / 565 560 / 560 Balance -175 / -175 -105 / -105 -420 / -420 Physical Exam Oriented: Normal Eyes: Normal Nose: Normal Throat: Normal Cardiovascular: Normal, Irregular and Edema (improved ) Auscultation: Bowel Sounds: Normal Palpation: Normal Tenderness: Normal Skin: Normal Musculoskeletal: Normal Psychiatric: Normal Mood Description: Calm Affect: Normal Speech Pattern: Clear and Appropriate Laboratory and Diagnostics 07/17/24 04:35 07/17/24 04:35 Labs: 07/15/24 10:20 Stool Stool Culture - Final 07/15/24 10:20 Stool - Final Laboratory WBC 11.2 X10^3/uL (3.6-10.0) H 07/17/24 04:35 RBC 3.83 X10^6/uL (4.7-6.0) L 07/17/24 04:35 Hgb 11.1 g/dL (13.5-18.0) L 07/17/24 04:35 Hct 33.2 % (42.0-54.0) L 07/17/24 04:35 MCV 86.7 fL (80.0-100.0) 07/17/24 04:35 MCH 28.9 pg (27.0-34.0) 07/17/24 04:35 MCHC 33.4 g/dL (33.0-35.0) 07/17/24 04:35 RDW 16.0 % (11.6-16.5) 07/17/24 04:35 Plt Count 181 X10^3/uL (150.0-450.0) 07/17/24 04:35 MPV 7.1 fL (7.4-11.0) L 07/17/24 04:35 Neut % (Auto) 64.3 % (42.0-75.0) 07/17/24 04:35 Lymph % (Auto) 31.1 % (21.0-51.0) 07/17/24 04:35 [place] % (Auto) 4.5 % (0.0-13.0) 07/17/24 04:35 Eos % (Auto) 0.0 % (0.9-2.9) L 07/17/24 04:35 Baso % (Auto) 0.1 % (0.2-1.0) L 07/17/24 04:35 Neut # (Auto) 7.2 x10^3/uL (2.2-4.8) H 07/17/24 04:35 Lymph # (Auto) 3.5 X10^3/uL (1.3-2.9) H 07/17/24 04:35 [place] # (Auto) 0.5 x10^3/uL (0.3-0.8) 07/17/24 04:35 Eos # (Auto) 0.0 x10^3/uL (0.0-0.2) 07/17/24 04:35 Baso # (Auto) 0.0 X10^3/uL (0.0-0.1) 07/17/24 04:35 Absolute Nucleated RBC 0.0 /100WBC 07/17/24 04:35 Sample Site Rra 07/15/24 10:40 ABG pH 7.330 (7.35-7.45) L 07/15/24 10:40 ABG pCO2 46.0 mmHg (35.0-45.0) H 07/15/24 10:40 ABG pO2 63.0 mmHg (80.0-100.0) L 07/15/24 10:40 ABG HCO3 24.3 mmol/L (22-26) 07/15/24 10:40 ABG O2 Saturation 90.0 % (90-100) 07/15/24 10:40 ABG Base Excess -1.9 mmol/L (-2.0-2.0) 07/15/24 10:40 Geoff Test Pos 07/15/24 10:40 A-a Gradient 229.0 mmHg 07/15/24 10:40 FiO2 49.0 07/15/24 10:40 Blood Gas Comments Pt nyla well eb 07/15/24 10:40 Sodium 137 mmol/L (136-145) 07/17/24 04:35 Corrected Sodium 137 mmol/L (136-145) 07/17/24 04:35 Potassium 4.2 mmol/L (3.5-5.1) 07/17/24 04:35 Chloride 105 mmol/L (98-107) 07/17/24 04:35 Carbon Dioxide 26.9 mmol/L (21-32) 07/17/24 04:35 BUN 39 mg/dL (7-18) H 07/17/24 04:35 Creatinine 2.08 mg/dL (0.70-1.30) H 07/17/24 04:35 Est GFR (MDRD) Af Amer 40 (>60) L 07/17/24 04:35 Est GFR (MDRD) Non-Af 33 (>60) L 07/17/24 04:35 Glucose 113 mg/dL (65-99) H 07/17/24 04:35 Lactic Acid 0.9 mmol/L (0.4-2.0) 07/15/24 10:24 Calcium 7.7 mg/dL (8.5-10.1) L 07/17/24 04:35 Corrected Calcium 9.1 mg/dL (8.5-10.1) 07/17/24 04:35 Magnesium 2.5 mg/dL (2.0-2.9) 07/16/24 04:35 Total Bilirubin 0.40 mg/dL (0.2-1.0) 07/17/24 04:35 AST 10 Units/L (15-37) L 07/17/24 04:35 ALT 12 Units/L (12-78) 07/17/24 04:35 Alkaline Phosphatase 55 Units/L (46-116) 07/17/24 04:35 Creatine Kinase 42 Units/L (39-308) 07/15/24 06:50 Troponin I High Sens 20.5 ng/L (4.0-60.0) 07/15/24 06:50 B-Natriuretic Peptide 1910 pg/mL (0-79) H 07/15/24 06:50 Total Protein 6.2 g/dL (6.4-8.2) L 07/17/24 04:35 Albumin 2.2 g/dL (3.4-5.0) L 07/17/24 04:35 Globulin 4.0 g/dL (2.5-4.5) 07/17/24 04:35 Albumin/Globulin Ratio 0.6 Ratio (1.1-2.1) L 07/17/24 04:35 TSH 3rd Generation 1.420 uIU/mL (0.358-3.74) 07/15/24 06:50 Specimen Type Catherized urine 07/15/24 07:51 Urine Color Yellow (YELLOW) 07/15/24 07:51 Urine Appearance Clear (CLEAR) 07/15/24 07:51 Urine pH 6.0 (5.0 - 8.0) 07/15/24 07:51 Ur Specific [place] 1.015 (1.000-1.030) 07/15/24 07:51 Urine Protein 4+ (NEGATIVE) 07/15/24 07:51 Urine Glucose (UA) 2+ (NEGATIVE) 07/15/24 07:51 Urine Ketones 1+ (NEGATIVE) 07/15/24 07:51 Urine Blood 4+ (NEGATIVE) 07/15/24 07:51 Urine Nitrite Negative (NEGATIVE) 07/15/24 07:51 Urine Bilirubin Negative (NEGATIVE) 07/15/24 07:51 Urine Urobilinogen Normal (NORMAL) 07/15/24 07:51 Ur Leukocyte Esterase Negative (NEGATIVE) 07/15/24 07:51 Stool for White Cells Negative (NEGATIVE) 07/15/24 10:20 Stl C. diff Tox B Gene Positive (NEGATIVE) A 07/15/24 10:20 Stl C. diff [id number] Presumptive negative (NEGATIVE) 07/15/24 10:20 C. difficile Toxin A&B Negative (NEGATIVE) 07/15/24 10:20 SARS-CoV-2 (PCR) Negative (NEGATIVE) 07/15/24 06:37 Influenza Type A (PCR) Negative (NEGATIVE) 07/15/24 06:37 Influenza Type B (PCR) Negative (NEGATIVE) 07/15/24 06:37 RSV (PCR) Negative (NEGATIVE) 07/15/24 06:37 Resp Viral Panel (PCR) See scanned report 07/15/24 11:36 Plan (1) Bacteremia: Status: Acute (2) Acute CHF (congestive heart failure): Status: Acute Qualifiers: Heart failure type: unspecified Qualified Code(s): I50.9 - Heart f ailure, unspecified (3) Atrial fibrillation with rapid ventricular response: Status: Acute (4) C. difficile diarrhea: Status: Acute (5) OBDULIO (acute kidney injury): Status: Acute (6) Pneumonia: Status: Acute Qualifiers: Laterality: right Lung location: unspecified part of lung Pneumonia type: due to unspecified organism Qualified Code(s): J18.9 - Pneumonia, unspe cified organism (7) Acute and chronic respiratory failure: Status: Acute Qualifiers: Respiratory failure complication: hypoxia Qualified Code(s): J96.21 - Acute and chronic respiratory failure with hypoxia (8) COPD (chronic obstructive pulmonary disease): Status: Acute Qualifiers: COPD type: unspecified COPD Qualified Code(s): J44.9 - Chronic obstructive pulmonary disease, unspecified (9) Metastatic lung cancer (metastasis from lung to other site): Status: Chronic Qualifiers: Laterality: unspecified laterality Qualified Code(s): C34.90 - Malignant neoplasm of unspecified part of unspecified bronchus or lung (10) Chronic kidney disease, stage 3a: Status: Chronic
[2024-07-17] MEDS: NS 1,000 ML IV 1,000 ML IV SCH (12:00)
[2024-07-17] MEDS ORDERED: RESTORIL CAP 15 MG PO ONE (22:06)
[2024-07-17] MEDS: RESTORIL CAP 15 MG PO PRN (22:34)
--- NOTE | 2024-07-18 01:12 | RAD ---
EXAM: CHEST, 1 VIEW HISTORY: SOB, CHF; COMPARISON: None. TECHNIQUE: FINDINGS: Mild cardiac enlargement. Large area of mixed ground-glass and airspace opacities in the medial lung bases [id number] representing probable components of atelectasis edema with pneumonia n ot excluded. Bilateral small pleural effusion. Remaining lungs demonstrate mild interstitial edema. Additional bandlike airspace opacity in the medial right upper lobe which may be chronic versus acu te infiltrate. No pneumothorax. IMPRESSION: Findings as above THIS IS AN ELECTRONICALLY VERIFIED FINAL REPORT 07/18/2024 1:08 AM - Electronically signed by Sofi Porter MD
[2024-07-18 05:38] LABS: BASOPHILS % (AUTO) 0.2 % (0.2-1.0); EOSINOPHILS % (AUTO) 0.1 % (0.9-2.9); HEMATOCRIT 34.9 % (42.0-54.0); HEMOGLOBIN 11.5 g/dL (13.5-18.0); LYMPHOCYTES # (AUTO) 4.5 X10^3/uL (1.3-2.9); LYMPHOCYTES % (AUTO) 32.6 % (21.0-51.0); MEAN CORPUSCULAR HEMOGLOBIN 28.8 pg (27.0-34.0); MEAN CORPUSCULAR HGB CONC 32.9 g/dL (33.0-35.0); MEAN CORPUSCULAR VOLUME 87.6 fL (80.0-100.0); MEAN PLATELET VOLUME 7.5 fL (7.4-11.0); MONOCYTES # (AUTO) 0.5 x10^3/uL (0.3-0.8); MONOCYTES % (AUTO) 3.8 % (0.0-13.0); NEUTROPHILS # (AUTO) 8.7 x10^3/uL (2.2-4.8); NEUTROPHILS % (AUTO) 63.3 % (42.0-75.0); PLATELET COUNT 211 X10^3/uL (150.0-450.0); RED BLOOD COUNT 3.99 X10^6/uL (4.7-6.0); RED CELL DISTRIBUTION WIDTH 15.9 % (11.6-16.5); WHITE BLOOD COUNT 13.7 X10^3/uL (3.6-10.0)
[2024-07-18 05:55] LABS: ALBUMIN 2.4 g/dL (3.4-5.0); CALCIUM 7.9 mg/dL (8.5-10.1); CARBON DIOXIDE 26.7 mmol/L (21-32); COR CA(FOR HYPOALB) 9.2 mg/dL (8.5-10.1); CREATININE 1.85 mg/dL (0.70-1.30); MAGNESIUM 2.1 mg/dL (2.0-2.9); TOTAL PROTEIN 6.4 g/dL (6.4-8.2)
[2024-07-18] MEDS: CARDIZEM TAB 30 MG PLAIN PO SCH (10:50)
--- NOTE | 2024-07-18 11:35 | PCM.PROG ---
Progress Note Progress Note for Day of Date of Exam: 07/18/24 Subjective Subjective: Patient resting in bed. He was agitated overnight. He is currently on 3L NC. His renal function has improved. His diarrhea has stopped. AIT showed H. Influenza. Blood cultures considered contamination. C diff positive. He remains on PO vancomycin and IV antibiotics. Labs/imaging reviewed: -WBC 13.7, Hgb 11.5, Plt 211, Na 140, K 4.0, Creatinine 1.85, Glucose 122. -AIT: H. Influenza -Blood Cx: positive for coagulase negative staph aureus that is considered contamination. -C diff PCR positive Plan: continue ICU monitoring, Wean O2 as tolerated. Follow cardiology recommendations. Hold lasix for now. Continue gentle hydration with NS. Monitor for signs of fluid overload. Echo pending. Monitor UOP. Continue Diltiazem. Continue PO Vancomycin. Continue IV Rocephin/Azithromycin. Continue pepcid. Tylenol prn. Replace electrolytes as per protocol. Continue home medications. PT/OT as tolerated. Monitor AM labs/imaging. Time spent for clinical assessment, reviewing labs/imaging, physical exam, decision making and documentation greater than 45 mins Past Medical Family Social History Allergies: Allergies apixaban [From Eliquis] Allergy (Verified 07/15/24 21:08) hives and knots over the body haloperidol Adverse Reaction (Severe, Verified 07/18/24 00:50) Makes patient "Hallucinate" per daughter's. zolpidem [From Ambien] Adverse Reaction (Verified 07/15/24 21:09) CONFUSION hallucinations Review of Systems ROS changes noted: see HPI Vital Signs and I&O's Vital Signs: Vital Signs Temperature 98.5 F Pulse Rate 79 Pulse Rate 86 Pulse Rate 87 Pulse Rate 88 Pulse Rate 87 Pulse Rate 85 Pulse Rate 93 Pulse Rate 101 Pulse Rate 89 Pulse Rate 86 Pulse Rate 88 Pulse Rate 95 Pulse Rate 85 Pulse Rate 85 Pulse Rate 82 Respiratory Rate 18 Respiratory Rate 19 Respiratory Rate 20 Respiratory Rate 13 Blood Pressure 107/60 Blood Pressure 148/72 Blood Pressure 184/90 Blood Pressure 184/99 Blood Pressure 169/85 O2 Sat by Pulse Oximetry 95 O2 Sat by Pulse Oximetry 95 O2 Sat by Pulse Oximetry 92 O2 Sat by Pulse Oximetry 91 O2 Sat by Pulse Oximetry 90 O2 Sat by Pulse Oximetry 89 O2 Sat by Pulse Oximetry 94 O2 Sat by Pulse Oximetry 95 O2 Sat by Pulse Oximetry 95 O2 Sat by Pulse Oximetry 90 O2 Sat by Pulse Oximetry 91 O2 Sat by Pulse Oximetry 93 O2 Sat by Pulse Oximetry 71 O2 Sat by Pulse Oximetry 94 O2 Sat by Pulse Oximetry 96 O2 Sat by Pulse Oximetry 93 Intake and Output: Intake & Output 07/15/24 07/16/24 07/17/24 07/18/24 23:59 23:59 23:59 23:59 Intake Total 500 / 500 460 / 460 1650 / 1650 672 / 672 Output Total 675 / 675 565 / 565 2210 / 2210 600 / 600 Balance -175 / -175 -105 / -105 -560 / -560 72 / 72 Physical Exam Oriented: Normal Eyes: Normal Nose: Normal Throat: Normal Respiratory: Diminished Cardiovascular: Normal, Irregular and Edema (improved ) Auscultation: Bowel Sounds: Normal Tenderness: Normal Skin: Normal Musculoskeletal: Normal Psychiatric: Normal Mood Description: Calm Affect: Normal Speech Pattern: Clear and Appropriate Laboratory and Diagnostics 07/18/24 04:42 07/18/24 04:42 Labs: 07/15/24 08:19 Blood Blood Culture Gram Stain - Final 07/15/24 08:19 Blood Blood Culture - Final 07/15/24 06:50 Blood Blood Culture - Preliminary 07/15/24 10:20 Stool Stool Culture - Final 07/15/24 10:20 Stool - Final Laboratory WBC 13.7 X10^3/uL (3.6-10.0) H 07/18/24 04:42 RBC 3.99 X10^6/uL (4.7-6.0) L 07/18/24 04:42 Hgb 11.5 g/dL (13.5-18.0) L 07/18/24 04:42 Hct 34.9 % (42.0-54.0) L 07/18/24 04:42 MCV 87.6 fL (80.0-100.0) 07/18/24 04:42 MCH 28.8 pg (27.0-34.0) 07/18/24 04:42 MCHC 32.9 g/dL (33.0-35.0) L 07/18/24 04:42 RDW 15.9 % (11.6-16.5) 07/18/24 04:42 Plt Count 211 X10^3/uL (150.0-450.0) 07/18/24 04:42 MPV 7.5 fL (7.4-11.0) 07/18/24 04:42 Neut % (Auto) 63.3 % (42.0-75.0) 07/18/24 04:42 Lymph % (Auto) 32.6 % (21.0-51.0) 07/18/24 04:42 [place] % (Auto) 3.8 % (0.0-13.0) 07/18/24 04:42 Eos % (Auto) 0.1 % (0.9-2.9) L 07/18/24 04:42 Baso % (Auto) 0.2 % (0.2-1.0) 07/18/24 04:42 Neut # (Auto) 8.7 x10^3/uL (2.2-4.8) H 07/18/24 04:42 Lymph # (Auto) 4.5 X10^3/uL (1.3-2.9) H 07/18/24 04:42 [place] # (Auto) 0.5 x10^3/uL (0.3-0.8) 07/18/24 04:42 Eos # (Auto) 0.0 x10^3/uL (0.0-0.2) 07/18/24 04:42 Baso # (Auto) 0.0 X10^3/uL (0.0-0.1) 07/18/24 04:42 Absolute Nucleated RBC 0.0 /100WBC 07/18/24 04:42 Sample Site Rra 07/15/24 10:40 ABG pH 7.330 (7.35-7.45) L 07/15/24 10:40 ABG pCO2 46.0 mmHg (35.0-45.0) H 07/15/24 10:40 ABG pO2 63.0 mmHg (80.0-100.0) L 07/15/24 10:40 ABG HCO3 24.3 mmol/L (22-26) 07/15/24 10:40 ABG O2 Saturation 90.0 % (90-100) 07/15/24 10:40 ABG Base Excess -1.9 mmol/L (-2.0-2.0) 07/15/24 10:40 Geoff Test Pos 07/15/24 10:40 A-a Gradient 229.0 mmHg 07/15/24 10:40 FiO2 49.0 07/15/24 10:40 Blood Gas Comments Pt nyla well eb 07/15/24 10:40 Sodium 140 mmol/L (136-145) 07/18/24 04:42 Corrected Sodium 141 mmol/L (136-145) 07/18/24 04:42 Potassium 4.0 mmol/L (3.5-5.1) 07/18/24 04:42 Chloride 106 mmol/L (98-107) 07/18/24 04:42 Carbon Dioxide 26.7 mmol/L (21-32) 07/18/24 04:42 BUN 34 mg/dL (7-18) H 07/18/24 04:42 Creatinine 1.85 mg/dL (0.70-1.30) H 07/18/24 04:42 Est GFR (MDRD) Af Amer 46 (>60) L 07/18/24 04:42 Est GFR (MDRD) Non-Af 38 (>60) L 07/18/24 04:42 Glucose 122 mg/dL (65-99) H 07/18/24 04:42 Lactic Acid 0.9 mmol/L (0.4-2.0) 07/15/24 10:24 Calcium 7.9 mg/dL (8.5-10.1) L 07/18/24 04:42 Corrected Calcium 9.2 mg/dL (8.5-10.1) 07/18/24 04:42 Magnesium 2.1 mg/dL (2.0-2.9) 07/18/24 04:42 Total Bilirubin 0.40 mg/dL (0.2-1.0) 07/18/24 04:42 AST 15 Units/L (15-37) 07/18/24 04:42 ALT 13 Units/L (12-78) 07/18/24 04:42 Alkaline Phosphatase 63 Units/L (46-116) 07/18/24 04:42 Creatine Kinase 42 Units/L (39-308) 07/15/24 06:50 Troponin I High Sens 20.5 ng/L (4.0-60.0) 07/15/24 06:50 B-Natriuretic Peptide 644 pg/mL (0-79) H 07/17/24 04:35 Total Protein 6.4 g/dL (6.4-8.2) 07/18/24 04:42 Albumin 2.4 g/dL (3.4-5.0) L 07/18/24 04:42 Globulin 4.0 g/dL (2.5-4.5) 07/18/24 04:42 Albumin/Globulin Ratio 0.6 Ratio (1.1-2.1) L 07/18/24 04:42 TSH 3rd Generation 1.420 uIU/mL (0.358-3.74) 07/15/24 06:50 Specimen Type Catherized urine 07/15/24 07:51 Urine Color Yellow (YELLOW) 07/15/24 07:51 Urine Appearance Clear (CLEAR) 07/15/24 07:51 Urine pH 6.0 (5.0 - 8.0) 07/15/24 07:51 Ur Specific [place] 1.015 (1.000-1.030) 07/15/24 07:51 Urine Protein 4+ (NEGATIVE) 07/15/24 07:51 Urine Glucose (UA) 2+ (NEGATIVE) 07/15/24 07:51 Urine Ketones 1+ (NEGATIVE) 07/15/24 07:51 Urine Blood 4+ (NEGATIVE) 07/15/24 07:51 Urine Nitrite Negative (NEGATIVE) 07/15/24 07:51 Urine Bilirubin Negative (NEGATIVE) 07/15/24 07:51 Urine Urobilinogen Normal (NORMAL) 07/15/24 07:51 Ur Leukocyte Esterase Negative (NEGATIVE) 07/15/24 07:51 Stool for White Cells Negative (NEGATIVE) 07/15/24 10:20 Stl C. diff Tox B Gene Positive (NEGATIVE) A 07/15/24 10:20 Stl C. diff [id number] Presumptive negative (NEGATIVE) 07/15/24 10:20 C. difficile Toxin A&B Negative (NEGATIVE) 07/15/24 10:20 SARS-CoV-2 (PCR) Negative (NEGATIVE) 07/15/24 06:37 Influenza Type A (PCR) Negative (NEGATIVE) 07/15/24 06:37 Influenza Type B (PCR) Negative (NEGATIVE) 07/15/24 06:37 RSV (PCR) Negative (NEGATIVE) 07/15/24 06:37 Resp Viral Panel (PCR) See scanned report 07/15/24 11:36 Plan (1) Bacteremia: Status: Acute (2) Acute CHF (congestive heart failure): Status: Acute Qualifiers: Heart failure type: unspecified Qualified Code(s): I50.9 - Heart failure, unspecified (3) Atrial fibrillation with rapid ventricular response: Status: Acute (4) C. difficile diarrhea: Status: Acute (5) OBDULIO (acute kidney injury): Status: Acute (6) Pneumonia: Status: Acute Qualifiers: Laterality: right Lung location: unspecified part of lung Pneumonia type: due to unspecified organism Qualified Code(s): J18.9 - Pneumonia, unspecified organism (7) Acute and chronic respiratory failure: Status: Acute Qualifiers: Respiratory failure complication: hypoxia Qualified Code(s): J96.21 - Acute and chronic respiratory failure with hypoxia (8) COPD (chronic obstructive pulmonary disease): Status: Acute Qualifiers: COPD type: unspecified COPD Qualified Code(s): J44.9 - Chronic obstructive pulmonary disease, unspecified (9) Metastatic lung cancer (metastasis from lung to other site): Status: Chronic Qualifiers: Laterality: unspecified laterality Qualified Code(s): C34.90 - Malignant neoplasm of unspecified part of unspecified bronchus or lung (10) Chronic kidney disease, stage 3a: Status: Chronic
[2024-07-18] MEDS: NICOTINE PATCH TD SCH (18:06)
[2024-07-18] MEDS: SEROquel TAB 25 mg PO SCH (20:18)
[2024-07-18] MEDS: CHECK PATCH XX SCH (20:21)
[2024-07-19 05:24] LABS: BASOPHILS % (AUTO) 0.4 % (0.2-1.0); EOSINOPHILS # (AUTO) 0.1 x10^3/uL (0.0-0.2); EOSINOPHILS % (AUTO) 0.5 % (0.9-2.9); HEMOGLOBIN 10.3 g/dL (13.5-18.0); LYMPHOCYTES # (AUTO) 4.3 X10^3/uL (1.3-2.9); LYMPHOCYTES % (AUTO) 40.6 % (21.0-51.0); MEAN CORPUSCULAR HEMOGLOBIN 29.2 pg (27.0-34.0); MEAN CORPUSCULAR HGB CONC 33.4 g/dL (33.0-35.0); MEAN CORPUSCULAR VOLUME 87.4 fL (80.0-100.0); MEAN PLATELET VOLUME 7.3 fL (7.4-11.0); MONOCYTES # (AUTO) 0.6 x10^3/uL (0.3-0.8); MONOCYTES % (AUTO) 5.7 % (0.0-13.0); NEUTROPHILS # (AUTO) 5.6 x10^3/uL (2.2-4.8); NEUTROPHILS % (AUTO) 52.8 % (42.0-75.0); PLATELET COUNT 197 X10^3/uL (150.0-450.0); RED BLOOD COUNT 3.55 X10^6/uL (4.7-6.0); RED CELL DISTRIBUTION WIDTH 15.3 % (11.6-16.5); WHITE BLOOD COUNT 10.6 X10^3/uL (3.6-10.0)
[2024-07-19 05:34] LABS: ALANINE AMINOTRANSFERASE 10 Units/L (12-78); ALBUMIN 2.1 g/dL (3.4-5.0); ALKALINE PHOSPHATASE 48 Units/L (46-116); ASPARTATE AMINO TRANSFERASE 8 Units/L (15-37); BLOOD UREA NITROGEN 29 mg/dL (7-18); CALCIUM 7.6 mg/dL (8.5-10.1); CARBON DIOXIDE 26.6 mmol/L (21-32); CHLORIDE 109 mmol/L (98-107); COR CA(FOR HYPOALB) 9.1 mg/dL (8.5-10.1); CREATININE 1.79 mg/dL (0.70-1.30); GLUCOSE 94 mg/dL (65-99); POTASSIUM 3.7 mmol/L (3.5-5.1); SODIUM 141 mmol/L (136-145); TOTAL PROTEIN 5.5 g/dL (6.4-8.2); eGFR NON BLACK RACES 39 (>60)
[2024-07-19] MEDS: PEPCID 20 MG VIAL 20 MG in NS 50 ML IV 50 ML IV SCH (09:34)
[2024-07-19] MEDS: ROBITUSSIN DM PO PRN (09:35)
[2024-07-19] MEDS: KLOR-CON 10 MEQ TAB PO NR (09:44)
--- NOTE | 2024-07-19 10:05 | RAD ---
EXAM: CHEST, 1 VIEW HISTORY: infection , edema; COMPARISON: 07/17/2024 TECHNIQUE: AP portable FINDINGS: Stable cardiac silhouette. Bilateral pulmonary infiltrates are increased from comparison with increa sed right upper lobe consolidation and volume loss. Suspected layering right pleural effusion. No v isible pneumothorax. IMPRESSION: 1. Increased pulmonary infiltrates with right upper lobe consolidation and volume loss. 2. Suspected layering right pleural effusion. THIS IS AN ELECTRONICALLY VERIFIED FINAL REPORT 07/19/2024 8:37 AM - Electronically signed by Micheal Banda MD
--- NOTE | 2024-07-19 10:37 | PCM.PROG ---
Progress Note Progress Note for Day of Date of Exam: 07/19/24 Subjective Subjective: Patient working with physical therapy this morning. He is currently on 3L NC. He does use oxygen at home. No acute events overnight. AIT showed H. Influenza. Blood cultures considered contamination. C diff positive. He remains on PO vancomycin and IV antibiotics. CXR pending. Labs/imaging reviewed: -WBC 10.6, Hgb 10.3, Plt 197, Na 141, K 3.7, Creatinine 1.79, Glucose 94. -AIT: H. Influenza -Blood Cx: positive for coagulase negative staph aureus that is considered contamination. -C diff PCR positive Plan: continue ICU monitoring, Wean O2 as tolerated. Follow cardiology recom mendations. Hold lasix for now. Continue gentle hydration with NS. Monitor for signs of fluid overload. Echo pending. Monitor UOP. Continue Diltiazem. Continue PO Vancomycin. Continue IV Rocephin, will discontinue Azithromycin. Continue pepcid. Tylenol prn. Replace electrolytes as per protocol. Segal in place, start bladder training. Continue home medications. PT/OT as tolerated. Monitor AM labs/imaging. Time spent for clinical assessment, reviewing labs/imaging, physical exam, decision making and documentation greater than 45 mins Past Medical Family Social History Allergies: Allergies apixaban [From Eliquis] Allergy (Verified 07/15/24 21:08) hives and knots over the body haloperidol Adverse Reaction (Severe, Verified 07/18/24 00:50) Makes patient "Hallucinate" per daughter's. zolpidem [From Ambien] Adverse Reaction (Verified 07/15/24 21:09) CONFUSION hallucinations Review of Systems ROS changes noted: see HPI Vital Signs and I&O's Vital Signs: Vital Signs Temperature 98.0 F Temperature 98.0 F Pulse Rate 77 Pulse Rate 70 Pulse Rate 75 Respiratory Rate 18 Respiratory Rate 18 Respiratory Rate 13 Blood Pressure 140/70 Blood Pressure 142/77 O2 Sat by Pulse Oximetry 96 O2 Sat by Pulse Oximetry 96 O2 Sat by Pulse Oximetry 100 Intake and Output: Intake & Output 07/16/24 07/17/24 07/18/24 07/19/24 23:59 23:59 23:59 23:59 Intake Total 460 / 460 1650 / 1650 3262 / 3262 605 / 605 Output Total 565 / 565 2210 / 2210 1650 / 1650 450 / 450 Balance -105 / -105 -560 / -560 1612 / 1612 155 / 155 Physical Exam Oriented: Normal Eyes: Normal Nose: Normal Throat: Normal Respiratory: Diminished Cardiovascular: Normal, Irregular and Edema (improved ) Auscultation: Bowel Sounds: Normal Tenderness: Normal Skin: Normal Musculoskeletal: Normal Psychiatric: Normal Mood Description: Calm Affect: Normal Speech Pattern: Clear and Appropriate Laboratory and Diagnostics 07/19/24 04:31 07/19/24 04:31 Labs: 07/15/24 08:19 Blood Blood Culture Gram Stain - Final 07/15/24 08:19 Blood Blood Culture - Final 07/15/24 06:50 Blood Blood Culture - Preliminary 07/15/24 10:20 Stool Stool Culture - Final 07/15/24 10:20 Stool - Final Laboratory WBC 10.6 X10^3/uL (3.6-10.0) H 07/19/24 04:31 RBC 3.55 X10^6/uL (4.7-6.0) L 07/19/24 04:31 Hgb 10.3 g/dL (13.5-18.0) L 07/19/24 04:31 Hct 31.0 % (42.0-54.0) L 07/19/24 04:31 MCV 87.4 fL (80.0-100.0) 07/19/24 04:31 MCH 29.2 pg (27.0-34.0) 07/19/24 04:31 MCHC 33.4 g/dL (33.0-35.0) 07/19/24 04:31 RDW 15.3 % (11.6-16.5) 07/19/24 04:31 Plt Count 197 X10^3/uL (150.0-450.0) 07/19/24 04:31 MPV 7.3 fL (7.4-11.0) L 07/19/24 04:31 Neut % (Auto) 52.8 % (42.0-75.0) 07/19/24 04:31 Lymph % (Auto) 40.6 % (21.0-51.0) 07/19/24 04:31 [place] % (Auto) 5.7 % (0.0-13.0) 07/19/24 04:31 Eos % (Auto) 0.5 % (0.9-2.9) L 07/19/24 04:31 Baso % (Auto) 0.4 % (0.2-1.0) 07/19/24 04:31 Neut # (Auto) 5.6 x10^3/uL (2.2-4.8) H 07/19/24 04:31 Lymph # (Auto) 4.3 X10^3/uL (1.3-2.9) H 07/19/24 04:31 [place] # (Auto) 0.6 x10^3/uL (0.3-0.8) 07/19/24 04:31 Eos # (Auto) 0.1 x10^3/uL (0.0-0.2) 07/19/24 04:31 Baso # (Auto) 0.0 X10^3/uL (0.0-0.1) 07/19/24 04:31 Absolute Nucleated RBC 0.0 /100WBC 07/19/24 04:31 Sample Site Rra 07/15/24 10:40 ABG pH 7.330 (7.35-7.45) L 07/15/24 10:40 ABG pCO2 46.0 mmHg (35.0-45.0) H 07/15/24 10:40 ABG pO2 63.0 mmHg (80.0-100.0) L 07/15/24 10:40 ABG HCO3 24.3 mmol/L (22-26) 07/15/24 10:40 ABG O2 Saturation 90.0 % (90-100) 07/15/24 10:40 ABG Base Excess -1.9 mmol/L (-2.0-2.0) 07/15/24 10:40 Geoff Test Pos 07/15/24 10:40 A-a Gradient 229.0 mmHg 07/15/24 10:40 FiO2 49.0 07/15/24 10:40 Blood Gas Comments Pt nyla well eb 07/15/24 10:40 Sodium 141 mmol/L (136-145) 07/19/24 04:31 Corrected Sodium TNP 07/19/24 04:31 Potassium 3.7 mmol/L (3.5-5.1) 07/19/24 04:31 Chloride 109 mmol/L (98-107) H 07/19/24 04:31 Carbon Dioxide 26.6 mmol/L (21-32) 07/19/24 04:31 BUN 29 mg/dL (7-18) H 07/19/24 04:31 Creatinine 1.79 mg/dL (0.70-1.30) H 07/19/24 04:31 Est GFR (MDRD) Af Amer 47 (>60) L 07/19/24 04:31 Est GFR (MDRD) Non-Af 39 (>60) L 07/19/24 04:31 Glucose 94 mg/dL (65-99) 07/19/24 04:31 Lactic Acid 0.9 mmol/L (0.4-2.0) 07/15/24 10:24 Calcium 7.6 mg/dL (8.5-10.1) L 07/19/24 04:31 Corrected Calcium 9.1 mg/dL (8.5-10.1) 07/19/24 04:31 Magnesium 2.1 mg/dL (2.0-2.9) 07/18/24 04:42 Total Bilirubin 0.40 mg/dL (0.2-1.0) 07/19/24 04:31 AST 8 Units/L (15-37) L 07/19/24 04:31 ALT 10 Units/L (12-78) L 07/19/24 04:31 Alkaline Phosphatase 48 Units/L (46-116) 07/19/24 04:31 Creatine Kinase 42 Units/L (39-308) 07/15/24 06:50 Troponin I High Sens 20.5 ng/L (4.0-60.0) 07/15/24 06:50 B-Natriuretic Peptide 644 pg/mL (0-79) H 07/17/24 04:35 Total Protein 5.5 g/dL (6.4-8.2) L 07/19/24 04:31 Albumin 2.1 g/dL (3.4-5.0) L 07/19/24 04:31 Globulin 3.4 g/dL (2.5-4.5) 07/19/24 04:31 Albumin/Globulin Ratio 0.6 Ratio (1.1-2.1) L 07/19/24 04:31 TSH 3rd Generation 1.420 uIU/mL (0.358-3.74) 07/15/24 06:50 Specimen Type Catherized urine 07/15/24 07:51 Urine Color Yellow (YELLOW) 07/15/24 07:51 Urine Appearance Clear (CLEAR) 07/15/24 07:51 Urine pH 6.0 (5.0 - 8.0) 07/15/24 07:51 Ur Specific [place] 1.015 (1.000-1.030) 07/15/24 07:51 Urine Protein 4+ (NEGATIVE) 07/15/24 07:51 Urine Glucose (UA) 2+ (NEGATIVE) 07/15/24 07:51 Urine Ketones 1+ (NEGATIVE) 07/15/24 07:51 Urine Blood 4+ (NEGATIVE) 07/15/24 07:51 Urine Nitrite Negative (NEGATIVE) 07/15/24 07:51 Urine Bilirubin Negative (NEGATIVE) 07/15/24 07:51 Urine Urobilinogen Normal (NORMAL) 07/15/24 07:51 Ur Leukocyte Esterase Negative (NEGATIVE) 07/15/24 07:51 Stool for White Cells Negative (NEGATIVE) 07/15/24 10:20 Stl C. diff Tox B Gene Positive (NEGATIVE) A 07/15/24 10:20 Stl C. diff [id number] Presumptive negative (NEGATIVE) 07/15/24 10:20 C. difficile Toxin A&B Negative (NEGATIVE) 07/15/24 10:20 SARS-CoV-2 (PCR) Negative (NEGATIVE) 07/15/24 06:37 Influenza Type A (PCR) Negative (NEGATIVE) 07/15/24 06:37 Influenza Type B (PCR) Negative (NEGATIVE) 07/15/24 06:37 RSV (PCR) Negative (NEGATIVE) 07/15/24 06:37 Resp Viral Panel (PCR) See scanned report 07/15/24 11:36 Plan (1) Bacteremia: Status: Acute (2) Acute CHF (congestive heart failure): Status: Acute Qualifiers: Heart failure type: unspecified Qualified Code(s): I50.9 - Heart alex lure, unspecified (3) Atrial fibrillation with rapid ventricular response: Status: Acute (4) C. difficile diarrhea: Status: Acute (5) OBDULIO (acute kidney injury): Status: Acute (6) Pneumonia: Status: Acute Qualifiers: Laterality: right Lung location: unspecified part of lung Pneumonia type: due to unspecified organism Qualified Code(s): J18.9 - Pneumonia, unspeci fied organism (7) Acute and chronic respiratory failure: Status: Acute Qualifiers: Respiratory failure complication: hypoxia Qualified Code(s): J96.21 - Acute and chronic respiratory failure with hypoxia (8) COPD (chronic obstructive pulmonary disease): Status: Acute Qualifiers: COPD type: unspecified COPD Qualified Code(s): J44.9 - Chronic obstructive pulmonary disease, unspecified (9) Metastatic lung cancer (metastasis from lung to other site): Status: Chronic Qualifiers: Laterality: unspecified laterality Qualified Code(s): C34.90 - Malignant neoplasm of unspecified part of unspecified bronchus or lung (10) Chronic kidney disease, stage 3a: Status: Chronic
--- NOTE | 2024-07-19 15:41 | RAD ---
EXAM:CHEST, 1 VIEWHISTORY:pneumonia follow up;COMPARISON:07/18/2024, 07/17/2024FINDINGS:Heart is obscured. There is improving aeration in the right lung compared to prior. There are continued patchy bibasilar opacities. Underinflation. No visible pneumothorax or acute osseous finding.IMPRESSION:Improving but not resolved pulmonary opacities. Continued follow-up recommended.THIS IS AN ELECTRONICALLY VERIFIED FINAL REPORT07/19/2024 3:38 PM - Electronically signed by Álvaro Tripathi MD
[2024-07-19] MEDS: NORCO 5/325 MG TAB PO PRN (20:27)
[2024-07-19] MEDS: MAALOX or MYLANTA PO PRN (20:28)
[2024-07-20] MEDS ORDERED: BUTT CREAM (COMPOUND) ONE (04:44)
[2024-07-20] MEDS: BUTT CREAM (COMPOUND) TOP PRN (05:03)
[2024-07-20 05:37] LABS: BASOPHILS % (AUTO) 0.2 % (0.2-1.0); EOSINOPHILS # (AUTO) 0.1 x10^3/uL (0.0-0.2); EOSINOPHILS % (AUTO) 1.1 % (0.9-2.9); HEMATOCRIT 34.8 % (42.0-54.0); HEMOGLOBIN 11.4 g/dL (13.5-18.0); LYMPHOCYTES # (AUTO) 5.2 X10^3/uL (1.3-2.9); LYMPHOCYTES % (AUTO) 49.2 % (21.0-51.0); MEAN CORPUSCULAR HEMOGLOBIN 28.5 pg (27.0-34.0); MEAN CORPUSCULAR HGB CONC 32.6 g/dL (33.0-35.0); MEAN CORPUSCULAR VOLUME 87.3 fL (80.0-100.0); MEAN PLATELET VOLUME 7.4 fL (7.4-11.0); MONOCYTES # (AUTO) 0.6 x10^3/uL (0.3-0.8); MONOCYTES % (AUTO) 5.9 % (0.0-13.0); NEUTROPHILS # (AUTO) 4.6 x10^3/uL (2.2-4.8); NEUTROPHILS % (AUTO) 43.6 % (42.0-75.0); PLATELET COUNT 231 X10^3/uL (150.0-450.0); RED BLOOD COUNT 3.99 X10^6/uL (4.7-6.0); RED CELL DISTRIBUTION WIDTH 15.6 % (11.6-16.5); WHITE BLOOD COUNT 10.6 X10^3/uL (3.6-10.0)
[2024-07-20 05:45] LABS: ALANINE AMINOTRANSFERASE 12 Units/L (12-78); ALBUMIN 2.2 g/dL (3.4-5.0); ALKALINE PHOSPHATASE 53 Units/L (46-116); ASPARTATE AMINO TRANSFERASE 11 Units/L (15-37); BLOOD UREA NITROGEN 24 mg/dL (7-18); CARBON DIOXIDE 26.9 mmol/L (21-32); CHLORIDE 111 mmol/L (98-107); COR CA(FOR HYPOALB) 9.4 mg/dL (8.5-10.1); CREATININE 1.62 mg/dL (0.70-1.30); GLUCOSE 86 mg/dL (65-99); POTASSIUM 4.1 mmol/L (3.5-5.1); SODIUM 144 mmol/L (136-145); eGFR NON BLACK RACES 44 (>60)
[2024-07-20] MEDS: CONSULT PHARMACY - POTASSIUM & MAGNESIUM XX SCH (06:54)
[2024-07-20] MEDS: VISBIOME PROBIOTIC CAP 112.5 B or equivalent PO SCH (10:50)
[2024-07-20] MEDS: NS 1,000 ML IV 1,000 ML IV SCH (10:50)
--- NOTE | 2024-07-20 11:00 | PCM.PROG ---
Progress Note Progress Note for Day of Date of Exam: 07/20/24 Subjective Subjective: Patient is resting in bed this morning. He continues to improve. No acute events overnight. He is currently on 2L NC. He does use oxygen at home. AIT showed H. Influenza. Blood cultures considered contamination. C diff positive. He remains on PO vancomycin and IV antibiotics. Labs/imaging reviewed: -Chest x-ray revealed improving but not yet resolved pulmonary opacities. -WBC 10.6, hemoglobin 11.4, platelets 231, sodium 144, potassium 4.1, creatinine 1.62, glucose 86 -AIT: H. Influenza -Blood Cx: positive for coagulase negative staph aureus that is considered contamination. -C diff PCR positive Plan: continue ICU monitoring, Wean O2 as tolerated. Follow cardiology rec ommendations. Patient is tolerating p.o. intake, will decrease IV fluids to KVO. Monitor for signs of fluid overload. Echo pending. Monitor UOP. Continue Diltiazem. Continue PO Vancomycin. Continue IV Rocephin, will discontinue Azithromycin. Continue pepcid. Tylenol prn. Replace electrolytes as per protocol. Segal removed. Continue home medications. PT/OT as tolerated. Otherwise continue with current treatment plan. Monitor AM labs/imaging. Time spent for clinical assessment, reviewing labs/imaging, physical exam, decision making and documentation greater than 45 mins Past Medical Family Social History Allergies: Allergies apixaban [From Eliquis] Allergy (Verified 07/15/24 21:08) hives and knots over the body haloperidol Adverse Reaction (Severe, Verified 07/18/24 00:50) Makes patient "Hallucinate" per daughter's. zolpidem [From Ambien] Adverse Reaction (Verified 07/15/24 21:09) CONFUSION hallucinations Review of Systems ROS changes noted: see HPI Vital Signs and I&O's Vital Signs: Vital Signs Temperature 97.7 F Temperature 98.3 F Pulse Rate 83 Pulse Rate 70 Pulse Rate 73 Pulse Rate 67 Pulse Rate 72 Pulse Rate 87 Pulse Rate 89 Pulse Rate 80 Pulse Rate 84 Pulse Rate 81 Pulse Rate 81 Pulse Rate 74 Respiratory Rate 14 Respiratory Rate 17 Respiratory Rate 17 Respiratory Rate 13 Respiratory Rate 22 Respiratory Rate 18 Respiratory Rate 15 Respiratory Rate 19 Respiratory Rate 17 Respiratory Rate 26 Respiratory Rate 17 Blood Pressure 115/82 Blood Pressure 165/81 Blood Pressure 173/90 Blood Pressure 170/84 O2 Sat by Pulse Oximetry 100 O2 Sat by Pulse Oximetry 100 O2 Sat by Pulse Oximetry 98 O2 Sat by Pulse Oximetry 97 O2 Sat by Pulse Oximetry 100 O2 Sat by Pulse Oximetry 99 O2 Sat by Pulse Oximetry 98 O2 Sat by Pulse Oximetry 99 O2 Sat by Pulse Oximetry 87 O2 Sat by Pulse Oximetry 96 O2 Sat by Pulse Oximetry 80 O2 Sat by Pulse Oximetry 92 Intake and Output: Intake & Output 07/17/24 07/18/24 07/19/24 07/20/24 23:59 23:59 23:59 23:59 Intake Total 1650 / 1650 3262 / 3262 1918 / 1918 720 / 720 Output Total 2210 / 2210 1650 / 1650 195 / 1950 600 / 600 Balance -560 / -560 1612 / 1612 -33 / -33 120 / 120 Physical Exam Oriented: Normal Eyes: Normal Nose: Normal Throat: Normal Respiratory: Diminished Cardiovascular: Normal Auscultation: Bowel Sounds: Normal Tenderness: Normal Skin: Normal Musculoskeletal: Normal Psychiatric: Normal Mood Description: Calm Affect: Normal Speech Pattern: Clear and Appropriate Laboratory and Diagnostics 07/20/24 04:06 07/20/24 04:06 Labs: 07/15/24 08:19 Blood Blood Culture Gram Stain - Final 07/15/24 08:19 Blood Blood Culture - Final 07/15/24 06:50 Blood Blood Culture - Preliminary 07/15/24 10:20 Stool Stool Culture - Final 07/15/24 10:20 Stool - Final Laboratory WBC 10.6 X10^3/uL (3.6-10.0) H 07/20/24 04:06 RBC 3.99 X10^6/uL (4.7-6.0) L 07/20/24 04:06 Hgb 11.4 g/dL (13.5-18.0) L 07/20/24 04:06 Hct 34.8 % (42.0-54.0) L 07/20/24 04:06 MCV 87.3 fL (80.0-100.0) 07/20/24 04:06 MCH 28.5 pg (27.0-34.0) 07/20/24 04:06 MCHC 32.6 g/dL (33.0-35.0) L 07/20/24 04:06 RDW 15.6 % (11.6-16.5) 07/20/24 04:06 Plt Count 231 X10^3/uL (150.0-450.0) 07/20/24 04:06 MPV 7.4 fL (7.4-11.0) 07/20/24 04:06 Neut % (Auto) 43.6 % (42.0-75.0) 07/20/24 04:06 Lymph % (Auto) 49.2 % (21.0-51.0) 07/20/24 04:06 [place] % (Auto) 5.9 % (0.0-13.0) 07/20/24 04:06 Eos % (Auto) 1.1 % (0.9-2.9) 07/20/24 04:06 Baso % (Auto) 0.2 % (0.2-1.0) 07/20/24 04:06 Neut # (Auto) 4.6 x10^3/uL (2.2-4.8) 07/20/24 04:06 Lymph # (Auto) 5.2 X10^3/uL (1.3-2.9) H 07/20/24 04:06 [place] # (Auto) 0.6 x10^3/uL (0.3-0.8) 07/20/24 04:06 Eos # (Auto) 0.1 x10^3/uL (0.0-0.2) 07/20/24 04:06 Baso # (Auto) 0.0 X10^3/uL (0.0-0.1) 07/20/24 04:06 Absolute Nucleated RBC 0.0 /100WBC 07/20/24 04:06 Sample Site Rra 07/15/24 10:40 ABG pH 7.330 (7.35-7.45) L 07/15/24 10:40 ABG pCO2 46.0 mmHg (35.0-45.0) H 07/15/24 10:40 ABG pO2 63.0 mmHg (80.0-100.0) L 07/15/24 10:40 ABG HCO3 24.3 mmol/L (22-26) 07/15/24 10:40 ABG O2 Saturation 90.0 % (90-100) 07/15/24 10:40 ABG Base Excess -1.9 mmol/L (-2.0-2.0) 07/15/24 10:40 Geoff Test Pos 07/15/24 10:40 A-a Gradient 229.0 mmHg 07/15/24 10:40 FiO2 49.0 07/15/24 10:40 Blood Gas Comments Pt nyla well eb 07/15/24 10:40 Sodium 144 mmol/L (136-145) 07/20/24 04:06 Corrected Sodium TNP 07/20/24 04:06 Potassium 4.1 mmol/L (3.5-5.1) 07/20/24 04:06 Chloride 111 mmol/L (98-107) H 07/20/24 04:06 Carbon Dioxide 26.9 mmol/L (21-32) 07/20/24 04:06 BUN 24 mg/dL (7-18) H 07/20/24 04:06 Creatinine 1.62 mg/dL (0.70-1.30) H 07/20/24 04:06 Est GFR (MDRD) Af Amer 53 (>60) L 07/20/24 04:06 Est GFR (MDRD) Non-Af 44 (>60) L 07/20/24 04:06 Glucose 86 mg/dL (65-99) 07/20/24 04:06 Lactic Acid 0.9 mmol/L (0.4-2.0) 07/15/24 10:24 Calcium 8.0 mg/dL (8.5-10.1) L 07/20/24 04:06 Corrected Calcium 9.4 mg/dL (8.5-10.1) 07/20/24 04:06 Magnesium 2.1 mg/dL (2.0-2.9) 07/18/24 04:42 Total Bilirubin 0.40 mg/dL (0.2-1.0) 07/20/24 04:06 AST 11 Units/L (15-37) L 07/20/24 04:06 ALT 12 Units/L (12-78) 07/20/24 04:06 Alkaline Phosphatase 53 Units/L (46-116) 07/20/24 04:06 Creatine Kinase 42 Units/L (39-308) 07/15/24 06:50 Troponin I High Sens 20.5 ng/L (4.0-60.0) 07/15/24 06:50 B-Natriuretic Peptide 644 pg/mL (0-79) H 07/17/24 04:35 Total Protein 6.0 g/dL (6.4-8.2) L 07/20/24 04:06 Albumin 2.2 g/dL (3.4-5.0) L 07/20/24 04:06 Globulin 3.8 g/dL (2.5-4.5) 07/20/24 04:06 Albumin/Globulin Ratio 0.6 Ratio (1.1-2.1) L 07/20/24 04:06 TSH 3rd Generation 1.420 uIU/mL (0.358-3.74) 07/15/24 06:50 Specimen Type Catherized urine 07/15/24 07:51 Urine Color Yellow (YELLOW) 07/15/24 07:51 Urine Appearance Clear (CLEAR) 07/15/24 07:51 Urine pH 6.0 (5.0 - 8.0) 07/15/24 07:51 Ur Specific [place] 1.015 (1.000-1.030) 07/15/24 07:51 Urine Protein 4+ (NEGATIVE) 07/15/24 07:51 Urine Glucose (UA) 2+ (NEGATIVE) 07/15/24 07:51 Urine Ketones 1+ (NEGATIVE) 07/15/24 07:51 Urine Blood 4+ (NEGATIVE) 07/15/24 07:51 Urine Nitrite Negative (NEGATIVE) 07/15/24 07:51 Urine Bilirubin Negative (NEGATIVE) 07/15/24 07:51 Urine Urobilinogen Normal (NORMAL) 07/15/24 07:51 Ur Leukocyte Esterase Negative (NEGATIVE) 07/15/24 07:51 Stool for White Cells Negative (NEGATIVE) 07/15/24 10:20 Stl C. diff Tox B Gene Positive (NEGATIVE) A 07/15/24 10:20 Stl C. diff [id number] Presumptive negative (NEGATIVE) 07/15/24 10:20 C. difficile Toxin A&B Negative (NEGATIVE) 07/15/24 10:20 SARS-CoV-2 (PCR) Negative (NEGATIVE) 07/15/24 06:37 Influenza Type A (PCR) Negative (NEGATIVE) 07/15/24 06:37 Influenza Type B (PCR) Negative (NEGATIVE) 07/15/24 06:37 RSV (PCR) Negative (NEGATIVE) 07/15/24 06:37 Resp Viral Panel (PCR) See scanned report 07/15/24 11:36 Plan (1) Bacteremia: Status: Acute (2) Acute CHF (congestive heart failure): Status: Acute Qualifiers: Heart failure type: unspecified Qualified Code(s): I50.9 - Heart failure, unspecified (3) Atrial fibrillation with rapid ventricular response: Status: Acute (4) C. difficile diarrhea: Status: Acute (5) OBDULIO (acute kidney injury): Status: Acute (6) Pneumonia: Status: Acute Qualifiers: Laterality: right Lung location: unspecified part of lung Pneumonia type: due to unspecified organism Qualified Code(s): J18.9 - Pneumonia, unspecified organism (7) Acute and chronic respiratory failure: Status: Acute Qualifiers: Respiratory failure complication: hypoxia Qualified Code(s): J96.21 - Acute and chronic respiratory failure with hypoxia (8) COPD (chronic obstructive pulmonary disease): Status: Acute Qualifiers: COPD type: unspecified COPD Qualified Code(s): J44.9 - Chronic obstructive pulmonary disease, unspecified (9) Metastatic lung cancer (metastasis from lung to other site): Status: Chronic Qualifiers: Laterality: unspecified laterality Qualified Code(s): C34.90 - Malignant neoplasm of unspecified part of unspecified bronchus or lung (10) Chronic kidney disease, stage 3a: Status: Chronic
[2024-07-20] MEDS: CHECK PATCH XX SCH (21:18)
[2024-07-21 05:24] LABS: BASOPHILS # (AUTO) 0.1 X10^3/uL (0.0-0.1); BASOPHILS % (AUTO) 0.5 % (0.2-1.0); EOSINOPHILS # (AUTO) 0.1 x10^3/uL (0.0-0.2); EOSINOPHILS % (AUTO) 1.1 % (0.9-2.9); HEMATOCRIT 31.6 % (42.0-54.0); HEMOGLOBIN 10.3 g/dL (13.5-18.0); LYMPHOCYTES # (AUTO) 5.1 X10^3/uL (1.3-2.9); LYMPHOCYTES % (AUTO) 45.5 % (21.0-51.0); MEAN CORPUSCULAR HEMOGLOBIN 28.4 pg (27.0-34.0); MEAN CORPUSCULAR HGB CONC 32.6 g/dL (33.0-35.0); MEAN CORPUSCULAR VOLUME 87.2 fL (80.0-100.0); MONOCYTES # (AUTO) 0.7 x10^3/uL (0.3-0.8); MONOCYTES % (AUTO) 6.5 % (0.0-13.0); NEUTROPHILS # (AUTO) 5.2 x10^3/uL (2.2-4.8); NEUTROPHILS % (AUTO) 46.4 % (42.0-75.0); PLATELET COUNT 223 X10^3/uL (150.0-450.0); RED BLOOD COUNT 3.62 X10^6/uL (4.7-6.0); RED CELL DISTRIBUTION WIDTH 15.3 % (11.6-16.5); WHITE BLOOD COUNT 11.2 X10^3/uL (3.6-10.0)
[2024-07-21 05:45] LABS: ALANINE AMINOTRANSFERASE 11 Units/L (12-78); ALKALINE PHOSPHATASE 53 Units/L (46-116); ASPARTATE AMINO TRANSFERASE 11 Units/L (15-37); BLOOD UREA NITROGEN 19 mg/dL (7-18); CALCIUM 7.6 mg/dL (8.5-10.1); CARBON DIOXIDE 26.1 mmol/L (21-32); CHLORIDE 112 mmol/L (98-107); COR CA(FOR HYPOALB) 9.2 mg/dL (8.5-10.1); COR NA(FOR HYPERGLY) 144 mmol/L (136-145); CREATININE 1.41 mg/dL (0.70-1.30); GLUCOSE 122 mg/dL (65-99); POTASSIUM 3.6 mmol/L (3.5-5.1); SODIUM 143 mmol/L (136-145); TOTAL PROTEIN 5.3 g/dL (6.4-8.2); eGFR NON BLACK RACES 52 (>60)
[2024-07-21] MEDS ORDERED: CONSULT PHARMACY - POTASSIUM & MAGNESIUM XX SCH (07:00)
[2024-07-21] MEDS: K-DUR TAB 20 MEQ PO SCH (08:51)
--- NOTE | 2024-07-21 10:56 | PCM.PROG ---
Progress Note Progress Note for Day of Date of Exam: 07/21/24 Subjective Subjective: Patient is sitting up in bed this morning. Reports improvement. No acute events overnight. He is currently on 2L NC. He does use oxygen at home. AIT showed H. Influenza. Blood cultures considered contamination. C diff positive. He remains on PO vancomycin and IV antibiotics. Labs/imaging reviewed: -WBC 11.2, hemoglobin 10.3, platelets 223, sodium 143, potassium 3.6, creatinine 1.41, glucose 122 -AIT: H. Influenza -Blood Cx: positive for coagulase negative staph aureus that is considered contamination. -C diff PCR positive Plan: continue ICU monitoring, Wean O2 as tolerated. Follow cardiology recommendations. Patient is tolerating p.o. intake, IV fluids at KVO. Monitor for signs of fluid overload. Echo pending. Monitor UOP. Continue Diltiazem. Continue PO Vancomycin. Continue IV Rocephin. Continue pepcid. Tylenol prn. Replace electrolytes as per protocol. Segal removed. Continue home medications. PT/OT as tolerated. Otherwise continue with current treatment plan. Monitor AM labs/imaging. Time spent for clinical assessment, reviewing labs/imaging, physical exam, decision making and documentation greater than 45 mins Past Medical Family Social History Allergies: Allergies apixaban [From Eliquis] Allergy (Verified 07/15/24 21:08) hives and knots over the body haloperidol Adverse Reaction (Severe, Verified 07/18/24 00:50) Makes patient "Hallucinate" per daughter's. zolpidem [From Ambien] Adverse Reaction (Verified 07/15/24 21:09) CONFUSION hallucinations Review of Systems ROS changes noted: see HPI Vital Signs and I&O's Vital Signs: Vital Signs Temperature 97.9 F Pulse Rate 77 Pulse Rate 68 Pulse Rate 74 Pulse Rate 71 Pulse Rate 76 Pulse Rate 85 Pulse Rate 74 Pulse Rate 73 Pulse Rate 72 Pulse Rate 73 Respiratory Rate 17 Respiratory Rate 18 Respiratory Rate 17 Respiratory Rate 18 Respiratory Rate 16 Respiratory Rate 14 Respiratory Rate 12 Respiratory Rate 12 Respiratory Rate 12 Blood Pressure 131/70 Blood Pressure 183/89 Blood Pressure 176/99 Blood Pressure 141/79 O2 Sat by Pulse Oximetry 94 O2 Sat by Pulse Oximetry 97 O2 Sat by Pulse Oximetry 96 O2 Sat by Pulse Oximetry 97 O2 Sat by Pulse Oximetry 94 O2 Sat by Pulse Oximetry 88 O2 Sat by Pulse Oximetry 94 O2 Sat by Pulse Oximetry 95 O2 Sat by Pulse Oximetry 96 O2 Sat by Pulse Oximetry 91 Intake and Output: Intake & Output 07/18/24 07/19/24 07/20/24 07/21/24 23:59 23:59 23:59 23:59 Intake Total 3262 / 3262 1917 / 1917 2238 / 2238 280 / 280 Output Total 1650 / 1650 1951 / 1951 1450 / 1450 Balance 1612 / 1612 -33 / -33 788 / 788 280 / 280 Physical Exam Oriented: Normal Eyes: Normal Nose: Normal Throat: Normal Respiratory: Diminished Cardiovascular: Normal Auscultation: Bowel Sounds: Normal Tenderness: Normal Skin: Normal Musculoskeletal: Normal Psychiatric: Normal Mood Description: Calm Affect: Normal Speech Pattern: Clear and Appropriate Laboratory and Diagnostics 07/21/24 04:13 07/21/24 04:13 Labs: 07/15/24 06:50 Blood Blood Culture - Final 07/15/24 08:19 Blood Blood Culture Gram Stain - Final 07/15/24 08:19 Blood Blood Culture - Final 07/15/24 10:20 Stool Stool Culture - Final 07/15/24 10:20 Stool - Final Laboratory WBC 11.2 X10^3/uL (3.6-10.0) H 07/21/24 04:13 RBC 3.62 X10^6/uL (4.7-6.0) L 07/21/24 04:13 Hgb 10.3 g/dL (13.5-18.0) L 07/21/24 04:13 Hct 31.6 % (42.0-54.0) L 07/21/24 04:13 MCV 87.2 fL (80.0-100.0) 07/21/24 04:13 MCH 28.4 pg (27.0-34.0) 07/21/24 04:13 MCHC 32.6 g/dL (33.0-35.0) L 07/21/24 04:13 RDW 15.3 % (11.6-16.5) 07/21/24 04:13 Plt Count 223 X10^3/uL (150.0-450.0) 07/21/24 04:13 MPV 7.0 fL (7.4-11.0) L 07/21/24 04:13 Neut % (Auto) 46.4 % (42.0-75.0) 07/21/24 04:13 Lymph % (Auto) 45.5 % (21.0-51.0) 07/21/24 04:13 [place] % (Auto) 6.5 % (0.0-13.0) 07/21/24 04:13 Eos % (Auto) 1.1 % (0.9-2.9) 07/21/24 04:13 Baso % (Auto) 0.5 % (0.2-1.0) 07/21/24 04:13 Neut # (Auto) 5.2 x10^3/uL (2.2-4.8) H 07/21/24 04:13 Lymph # (Auto) 5.1 X10^3/uL (1.3-2.9) H 07/21/24 04:13 [place] # (Auto) 0.7 x10^3/uL (0.3-0.8) 07/21/24 04:13 Eos # (Auto) 0.1 x10^3/uL (0.0-0.2) 07/21/24 04:13 Baso # (Auto) 0.1 X10^3/uL (0.0-0.1) 07/21/24 04:13 Absolute Nucleated RBC 0.0 /100WBC 07/21/24 04:13 Sample Site Rra 07/15/24 10:40 ABG pH 7.330 (7.35-7.45) L 07/15/24 10:40 ABG pCO2 46.0 mmHg (35.0-45.0) H 07/15/24 10:40 ABG pO2 63.0 mmHg (80.0-100.0) L 07/15/24 10:40 ABG HCO3 24.3 mmol/L (22-26) 07/15/24 10:40 ABG O2 Saturation 90.0 % (90-100) 07/15/24 10:40 ABG Base Excess -1.9 mmol/L (-2.0-2.0) 07/15/24 10:40 Geoff Test Pos 07/15/24 10:40 A-a Gradient 229.0 mmHg 07/15/24 10:40 FiO2 49.0 07/15/24 10:40 Blood Gas Comments Pt nyla well eb 07/15/24 10:40 Sodium 143 mmol/L (136-145) 07/21/24 04:13 Corrected Sodium 144 mmol/L (136-145) 07/21/24 04:13 Potassium 3.6 mmol/L (3.5-5.1) 07/21/24 04:13 Chloride 112 mmol/L (98-107) H 07/21/24 04:13 Carbon Dioxide 26.1 mmol/L (21-32) 07/21/24 04:13 BUN 19 mg/dL (7-18) H 07/21/24 04:13 Creatinine 1.41 mg/dL (0.70-1.30) H 07/21/24 04:13 Est GFR (MDRD) Af Amer > 60 (>60) 07/21/24 04:13 Est GFR (MDRD) Non-Af 52 (>60) L 07/21/24 04:13 Glucose 122 mg/dL (65-99) H 07/21/24 04:13 Lactic Acid 0.9 mmol/L (0.4-2.0) 07/15/24 10:24 Calcium 7.6 mg/dL (8.5-10.1) L 07/21/24 04:13 Corrected Calcium 9.2 mg/dL (8.5-10.1) 07/21/24 04:13 Magnesium 1.8 mg/dL (2.0-2.9) L 07/21/24 04:13 Total Bilirubin 0.20 mg/dL (0.2-1.0) 07/21/24 04:13 AST 11 Units/L (15-37) L 07/21/24 04:13 ALT 11 Units/L (12-78) L 07/21/24 04:13 Alkaline Phosphatase 53 Units/L (46-116) 07/21/24 04:13 Creatine Kinase 42 Units/L (39-308) 07/15/24 06:50 Troponin I High Sens 20.5 ng/L (4.0-60.0) 07/15/24 06:50 B-Natriuretic Peptide 644 pg/mL (0-79) H 07/17/24 04:35 Total Protein 5.3 g/dL (6.4-8.2) L 07/21/24 04:13 Albumin 2.0 g/dL (3.4-5.0) L 07/21/24 04:13 Globulin 3.3 g/dL (2.5-4.5) 07/21/24 04:13 Albumin/Globulin Ratio 0.6 Ratio (1.1-2.1) L 07/21/24 04:13 TSH 3rd Generation 1.420 uIU/mL (0.358-3.74) 07/15/24 06:50 Specimen Type Catherized urine 07/15/24 07:51 Urine Color Yellow (YELLOW) 07/15/24 07:51 Urine Appearance Clear (CLEAR) 07/15/24 07:51 Urine pH 6.0 (5.0 - 8.0) 07/15/24 07:51 Ur Specific [place] 1.015 (1.000-1.030) 07/15/24 07:51 Urine Protein 4+ (NEGATIVE) 07/15/24 07:51 Urine Glucose (UA) 2+ (NEGATIVE) 07/15/24 07:51 Urine Ketones 1+ (NEGATIVE) 07/15/24 07:51 Urine Blood 4+ (NEGATIVE) 07/15/24 07:51 Urine Nitrite Negative (NEGATIVE) 07/15/24 07:51 Urine Bilirubin Negative (NEGATIVE) 07/15/24 07:51 Urine Urobilinogen Normal (NORMAL) 07/15/24 07:51 Ur Leukocyte Esterase Negative (NEGATIVE) 07/15/24 07:51 Stool for White Cells Negative (NEGATIVE) 07/15/24 10:20 Stl C. diff Tox B Gene Positive (NEGATIVE) A 07/15/24 10:20 Stl C. diff [id number] Presumptive negative (NEGATIVE) 07/15/24 10:20 C. difficile Toxin A&B Negative (NEGATIVE) 07/15/24 10:20 SARS-CoV-2 (PCR) Negative (NEGATIVE) 07/15/24 06:37 Influenza Type A (PCR) Negative (NEGATIVE) 07/15/24 06:37 Influenza Type B (PCR) Negative (NEGATIVE) 07/15/24 06:37 RSV (PCR) Negative (NEGATIVE) 07/15/24 06:37 Resp Viral Panel (PCR) See scanned report 07/15/24 11:36 Plan (1) Bacteremia: Status: Acute (2) Acute CHF (congestive heart failure): Status: Acute Qualifiers: Heart failure type: unspecified Qualified Code(s): I50.9 - Heart failure, unspecified (3) Atrial fibrillation with rapid ventricular response: Status: Acute (4) C. difficile diarrhea: Status: Acute (5) OBDULIO (acute kidney injury): Status: Acute (6) Pneumonia: Status: Acute Qualifiers: Laterality: right Lung location: unspecified part of lung Pneumonia type: due to unspecified organism Qualified Code(s): J18.9 - Pneumonia, unspecified organism (7) Acute and chronic respiratory failure: Status: Acute Qualifiers: Respiratory failure complication: hypoxia Qualified Code(s): J96.21 - Acute and chronic respiratory failure with hypoxia (8) COPD (chronic obstructive pulmonary disease): Status: Acute Qualifiers: COPD type: unspecified COPD Qualified Code(s): J44.9 - Chronic obstructive pulmonary disease, unspecified (9) Metastatic lung cancer (metastasis from lung to other site): Status: Chronic Qualifiers: Laterality: unspecified laterality Qualified Code(s): C34.90 - Malignant neoplasm of unspecified part of unspecified bronchus or lung (10) Chronic kidney disease, stage 3a: Status: Chronic
[2024-07-21] MEDS: CONSULT PHARMACY - POTASSIUM & MAGNESIUM XX SCH (14:03)
[2024-07-21] MEDS: MAG-OX TAB PO SCH (16:16)
[2024-07-22 05:25] LABS: MAGNESIUM 1.9 mg/dL (2.0-2.9); POTASSIUM 3.8 mmol/L (3.5-5.1)
[2024-07-22 06:53] VITALS: TEMP 97.9
[2024-07-22] MEDS: MAG-OX TAB PO SCH (08:21)
[2024-07-22 08:32] VITALS: BP 154/78; PULSE 74; RESP 20; O2SAT 91
[2024-07-22 09:58] LABS: BASOPHILS # (AUTO) 0.1 X10^3/uL (0.0-0.1); BASOPHILS % (AUTO) 0.8 % (0.2-1.0); EOSINOPHILS # (AUTO) 0.1 x10^3/uL (0.0-0.2); EOSINOPHILS % (AUTO) 1.2 % (0.9-2.9); HEMATOCRIT 35.6 % (42.0-54.0); HEMOGLOBIN 11.8 g/dL (13.5-18.0); LYMPHOCYTES % (AUTO) 48.6 % (21.0-51.0); MEAN CORPUSCULAR HEMOGLOBIN 29.1 pg (27.0-34.0); MEAN CORPUSCULAR HGB CONC 33.2 g/dL (33.0-35.0); MEAN CORPUSCULAR VOLUME 87.6 fL (80.0-100.0); MEAN PLATELET VOLUME 7.1 fL (7.4-11.0); MONOCYTES # (AUTO) 0.6 x10^3/uL (0.3-0.8); MONOCYTES % (AUTO) 5.2 % (0.0-13.0); NEUTROPHILS # (AUTO) 5.4 x10^3/uL (2.2-4.8); NEUTROPHILS % (AUTO) 44.2 % (42.0-75.0); PLATELET COUNT 275 X10^3/uL (150.0-450.0); RED BLOOD COUNT 4.07 X10^6/uL (4.7-6.0); RED CELL DISTRIBUTION WIDTH 15.4 % (11.6-16.5); WHITE BLOOD COUNT 12.3 X10^3/uL (3.6-10.0)
[2024-07-22 10:08] LABS: ALANINE AMINOTRANSFERASE 14 Units/L (12-78); ALBUMIN 2.3 g/dL (3.4-5.0); ALKALINE PHOSPHATASE 63 Units/L (46-116); ASPARTATE AMINO TRANSFERASE 23 Units/L (15-37); BLOOD UREA NITROGEN 15 mg/dL (7-18); CALCIUM 7.9 mg/dL (8.5-10.1); CHLORIDE 108 mmol/L (98-107); COR CA(FOR HYPOALB) 9.3 mg/dL (8.5-10.1); CREATININE 1.48 mg/dL (0.70-1.30); GLUCOSE 88 mg/dL (65-99); POTASSIUM 3.8 mmol/L (3.5-5.1); SODIUM 142 mmol/L (136-145); TOTAL PROTEIN 6.2 g/dL (6.4-8.2); eGFR NON BLACK RACES 49 (>60)
== END 2024-07-22 12:10 | disposition home health service (06) | DRG 291 ==
LOC: ER 06:31 → ICU 08:17
PROVIDERS: ADMIT Family Medicine; ATTEND Family Medicine
DX: N17.8 Other acute kidney failure; A04.72 Enterocolitis due to Clostridium difficile, not specified as recurrent; I50.9 Heart failure, unspecified; R91.8 Other nonspecific abnormal finding of lung field; Z95.818 Presence of other cardiac implants and grafts; R26.89 Other abnormalities of gait and mobility; C34.90 Malignant neoplasm of unspecified part of unspecified bronchus or lung; I13.0 Hypertensive heart and chronic kidney disease with heart failure and stage 1 through stage 4 chronic kidney disease, or unspecified chronic kidney disease; Z29.89 Encounter for other specified prophylactic measures; R78.81 Bacteremia; C79.89 Secondary malignant neoplasm of other specified sites; I48.91 Unspecified atrial fibrillation; Z03.818 Encounter for observation for suspected exposure to other biological agents ruled out; J96.21 Acute and chronic respiratory failure with hypoxia; Z99.81 Dependence on supplemental oxygen; N18.31 Chronic kidney disease, stage 3a; R41.82 Altered mental status, unspecified; J18.8 Other pneumonia, unspecified organism; B96.3 Hemophilus influenzae [H. influenzae] as the cause of diseases classified elsewhere; J44.89 Other specified chronic obstructive pulmonary disease; R00.0 Tachycardia, unspecified; R53.1 Weakness